=== PATIENT | female | born 1935 | race Caucasian/White ===

== ENCOUNTER 2018-01-06 10:01 | Inpatient (IN) ==
[2018-01-06] MEDS ORDERED: VANCOMYCIN - PHARMACY CONSULT MC ONE (10:11)
[2018-01-06] MEDS ORDERED: ONDANSETRON 4 MG/2 ML INJECTION IVP PRN (10:11)
[2018-01-06] MEDS ORDERED: BISACODYL 10 MG SUPPOSITORY RECTALLY PRN (10:12)
[2018-01-06 10:51] VITALS: BMI 41.1
--- NOTE | 2018-01-06 11:01 | XRay Report ---
Indication: Fever/chills XR chest 1V: Comparison: Single view chest 04/05/2015 Technique: Single portable AP upright chest Findings: Patient demonstrates heart size within the upper range of normal with a permanent pacemaker in position. Central vascularity does not seem congested. Lungs are clear. Patient showed advanced degenerative changes about the left shoulder. Impression: 1. Permanent pacemaker with heart size at the upper range of normal without congestive changes. 2. No acute pulmonary findings. .
--- NOTE | 2018-01-06 11:17 | History & Physical Report ---
History of Present Illness Date: 01/06/18 Chief complaint: Cellulitis HPI: Ora Romeo is an active 82 year old woman who began noticing a subjective fever with chills and a sensation that her eyes were burning on January 03 and . She had a mild headache as well. She had some back pain, and is worried that she might have a kidney infection because she has a history of UTIs. She took some ibuprofen which helped her fever and her back pain. By the , her fever had resolved but later that evening after her dog jumped on her abdomen, she was surprised that she had some abdominal pain. When she looked, it appeared red and more swollen on the left side compared to the right. Otherwise, she's been doing fairly well. She has chronic right arm problems because of a rotator cuff injury. She has chronic urinary urgency. She has chronic leg edema. She sleeps in a recliner every night because she does not want to use CPAP at night for her sleep apnea. She denies any chest pain, palpitations, difficulty breathing, syncope, dizziness or lightheadedness. She denies any cough or congestion, sore throat or dysphagia. She denies any abdominal pain, nausea, vomiting, diarrhea, constipation. She has lost about 80 pounds over the last 7 years, and she is trying to lose about 30 more. She denies any injuries, wounds or rashes. She takes Coumadin for atrial fibrillation. She went to see Dr. Guallpa on 01/06/18, who recommended hospital admission for abdominal wall cellulitis, and she was placed into inpatient status under the hospitalist service. Review of Systems All systems PM: 10-point ROS was reviewed, no additional remarkable complaints except - Psychiatric Psychiatric: Absent: behavioral changes - Hematologic/Lymphatic Hematologic/Lymphatic: Present: easy bleeding, easy bruising Past Medical History Medical History Updates: Atrial fibrillation, anticoagulated on Coumadin. CHF. Hypertension. FABIO, declined CPAP. GERD. Osteoarthritis. Gout. Insomnia. Surgical History: Appendectomy. Bilateral cataracts removed. Colonoscopy in 2009 with multiple polyps tubular adenomatous type and hyperplastic polyps. Cholecystectomy. Ovarian cystectomy followed by hysterectomy. Bilateral knee replacements, left hip replacement. Hemorrhoidectomy. Bilateral carpal tunnel release. Pacemaker placed in 2016. Family History Updates: Father at age 81 of a stroke. Mother at age 83 of congestive heart failure and insulin shock. Sr. of congestive heart failure. A stepskali of old age. Stepbrother of brain cancer. Paternal grandfather at age 90 of a stroke, and paternal grandmother at age 45 of pneumonia. She has 5 sons: One at age 57 of sepsis. He also had diabetes and COPD. Another son has diabetes. Another son is a smoker but is otherwise healthy. One has high blood pressure. The other son does not see a doctor so they don't know his medical problems. Family History: As Above - Social History Smoking status: Never smoker Substance use type: does not use Alcohol intake frequency: does not drink Household members: other () Previous occupational history: Housewife Social history: PCP: Dr. Cabezas Telephone Mechanic: Dr. Barnett Medications Home Medications Medication Instructions Recorded Confirmed Type Ascorbic Acid 500 mg PO DAILY #0 05/05/10 01/06/18 History Calcium Carbonate [Calcium] 1 tab PO DAILY #0 05/05/10 01/06/18 History Garlic [Garlic Oil] 2,000 mg PO DAILY #0 05/05/10 01/06/18 History Multi-Vitamin + Mineral 1 tab PO DAILY #0 05/05/10 01/06/18 History [Therapeutic - M] Omeprazole 40 mg PO DAILY #0 05/05/10 01/06/18 History Zinc Amino Acid Chelate [Zinc] 50 mg PO DAILY #0 05/10/14 01/06/18 History Valsartan [Diovan] 320 tab PO DAILY #0 tab 05/27/14 01/06/18 History Warfarin Sodium 4 mg PO DAILY #0 tab 04/05/15 01/06/18 History Allopurinol [Zyloprim] 150 mg PO DAILY 01/06/18 01/06/18 History Amlodipine Besylate [Norvasc] 2.5 mg PO DAILY 01/06/18 01/06/18 History CloNIDine [Catapres] 1 tab PO BID 01/06/18 01/06/18 History Cranberry Fruit [Cranberry] 500 mg PO DAILY 01/06/18 01/06/18 History [place]-3/Dha/Epa/Fish Oil [Fish Oil 2,000 mg PO DAILY 01/06/18 01/06/18 History 1,000 mg Softgel] Simvastatin 20 mg PO HS 01/06/18 01/06/18 History Sotalol HCl [Betapace] 80 mg PO ACBID 01/06/18 01/06/18 History Allergies Allergy/AdvReac Type Severity Reaction Status Date / Time oxycodone Allergy Severe Unresponsiv Verified 01/06/18 11:19 e sulfamethoxazole Allergy Intermediate Blister Verified 01/06/18 11:19 Penicillins Allergy Mild RASH Verified 05/27/14 09:20 Exam Height/Weight/BMI: Height 1.5 m Weight 92.4 kg Body Mass Index 41.1 - Constitutional Present: no acute distress, well nourished, well developed, obese - Routine HEENT Exam Head: Present: normocephalic Eye: Present: PERRL. Absent: conjunctival icterus, scleral injection ENT: Present: mucous membranes moist, oropharynx clear - Routine Neck Exam Present: supple. Absent: lymphadenopathy - Routine Respiratory Exam Present: CTA bilaterally - Routine Cardiovascular Exam Present: RRR Comments: distant heart tones - Routine Abdominal Exam Present: soft, normoactive bowel sounds, non distended, non tender Comments: mild erythema to lower abdomen into inguinal areas with induration at the dependent portion of her pannus. No palpable abscess. - Routine Extremities Exam Present: edema (1+ BLE), pulses intact, normal capillary refill - Routine Skin Exam Present: intact, dry, warm - Routine Neurological Exam Present: alert, oriented X3, CN II-XII intact, moving all extremities, vision grossly intact, hearing grossly intact, normal speech - Routine Psychiatric Exam Present: normal affect, normal thought process, cooperative Results - Labs CBC & Chem 7: 01/06/18 11:10 01/06/18 11:10 Assessment and Plan (1) Cellulitis Current visit: Yes Status: Acute Assessment and Plan: ASSESSMENT Cellulitis to abdominal wall Atrial fibrillation, anticoagulated on Coumadin. CHF. Hypertension. FABIO, declined CPAP. GERD. Osteoarthritis. Gout. Insomnia. Morbid Obesity with BMI 41.1 PLAN Admit, inpatient status, under the hospitalist service. PCP: Dr. Guallpa. Cellulitis of abdominal wall Sepsis workup Antibiotics: Rocephin (give slowly to monitor for reaction) & Vancomycin Atrial fibrillation, CHF, HTN Once meds are verified, resume diltiazem, losartan, sotalol, valsartan, and Coumadin Consult pharmacy for Coumadin dosing Request last echo report/office note from Dr. Barnett's office Advanced directives DPOA: Son, Neto Living Will: Yes Code status: DNR Prophylaxis Coumadin Omeprazole (History of GERD) DVT Prophylaxis: Coumadin GI Prophylaxis: other (omeprazole) Resuscitation Status: Do Not Resuscitate - Physician Narrative Physician: Jer Armstrong MD Narrative: Date: 01/06/18 Time: 1410 Have independently interview and examined pt. Chart reviewed. Case discussed with Dr Guallpa and my BIRD TRAPPER. Care plan developed with my supervision; agree with above. Not been doing well this week-started having f/c on 01/03. Off and on. Worried was getting UTI and having some Back pain. No nausea or vomiting. No diarrhea. Breathing stable without SOA or cough. Strength up and down-some days able to due her typical activities. Some days, to weak and achy. Having diffuse muscle aches like she has the flu - but know this is not the flu. Ab pannus became more sore and red - noted yesterday evening. Increased in size today. Uncomfortable there to touch. Seen in Dr Linares's office who was concerned about developing MRSA (has had in past). Patti notified and arrangements for admission made. Lungs: decreased, faint crackles. No distress CV: regular AB: soft obese, BS decreased. Skin: erythema of lower ab pannus, area of woody induration distally Plan: Will place patient in inpatient admission for treatment of her Cellulitis - with Obesity and redundancy of skin in area or infection, anticipate will take longer to heal. Anticipated length of stay is thought to be greater than 2 midnights. Ceftriaxone and vancomycin for coverage. Monitor lab. DNR as per her requests. Care to return to Dr Guallpa at time of discharge form [facility]. Hospital Course Summary Disclaimer: The visit summary below is not to be considered part of the above Progress Note. Hospital Course: 01/06/18 Admit, inpatient status, under the hospitalist service. PCP: Dr. Guallpa. Cellulitis of abdominal wall : Sepsis workup. Antibiotics: Rocephin (give slowly to monitor for reaction) & Vancomycin Atrial fibrillation, CHF, HTN : Resume diltiazem, losartan, sotalol, valsartan, and Coumadin. Consult pharmacy for Coumadin dosing. Request last echo report/ office note from Dr. Barnett's office Advanced directives. DPOA: Son, Neto. Living Will: Yes. Code status: DNR Prophylaxis : Coumadin & Omeprazole (History of GERD)
[2018-01-06] MEDS ORDERED: WARFARIN - PHARMACY CONSULT MC ONE (11:34)
[2018-01-06] MEDS: NS FLUSH BAG 500ml IV PRN (12:00)
[2018-01-06] MEDS: CEFTRIAXONE 1 G in NS 100 ML IV SCH (12:15)
--- NOTE | 2018-01-06 12:55 | Pharmacy Consult ---
Pharmacy Consult-Warfarin - Laboratory Information 01/06/18 11:10 INR 1.29 H - Consult Information Diagnosis: atrial fib. Warfarin 4mg dose ordered for today. This appears to be the patient's home dose. Will continue to monitor. Thank you.
[2018-01-06] MEDS: ENOXAPARIN 40 MG/0.4 ML INJECTION SQ SCH (13:18)
--- NOTE | 2018-01-06 13:51 | Pharmacy Consult-Antibiotics ---
Pharmacy Consult-Vancomycin - Laboratory Information WBC 6.8 T/MM3 (4.5-11.0) 01/06/18 11:10 BUN 31.0 MG/DL (7-17) H 01/06/18 11:10 Creatinine 1.0 mg/dL (0.7-1.2) 01/06/18 11:10 Procalcitonin < 0.05 NG/ML 01/06/18 11:10 - Consult Information 82 y.o Female started on Vancomycin protocol for Abdominal wall cellulitis. Ceftriaxone and Vancomycin ordered empirically. Goal Vancomycin trough range of 15 to 20 mcg/ml. Vancomycin 1,500 mg iv x 1 dose then Vancomycin 1,250 mg IV Q24H. Pharmacy will monitor and adjust as needed. Thank you, Kenia Jorge [facility]
[2018-01-06] MEDS ORDERED: WARFARIN 4 MG TABLET PO ONE (14:00)
[2018-01-07] MEDS: SOTALOL 80 MG TABLET PO SCH ×2 (06:41→17:16)
[2018-01-07] MEDS: OMEPRAZOLE 20 MG CAPSULE PO SCH (06:41)
--- NOTE | 2018-01-07 07:45 | Pharmacy Consult ---
Pharmacy Consult-Warfarin - Laboratory Information 01/06/18 01/07/18 11:10 04:12 INR 1.29 H 1.43 H - Consult Information We will order another dose of 4mg warfarin po today at noon. INR increasing nicely. Thanks
[2018-01-07] MEDS ORDERED: WARFARIN 4 MG TABLET PO SCH ×2 (09:00→12:00)
[2018-01-07] MEDS: ENOXAPARIN 40 MG/0.4 ML INJECTION SQ SCH (09:05)
--- NOTE | 2018-01-07 11:50 | Progress Note ---
- Date 01/07/18 Subjective: F/U: Cellulitis of abdominal pannus Improving slowly. Notes area of redness to ab wall not as tender/painful to touch. Redness with slight decrease. No f/c. Not having mouth pain. Bowels stable. Appetite stable. Breathing well. Objective Vital signs: Temperature 97.4 F 01/07/18 08:00 Pulse Rate 65 01/07/18 08:00 Respiratory Rate 16 01/07/18 08:00 Blood Pressure 152/69 H 01/07/18 08:00 Pulse Oximetry 97 01/07/18 08:00 Height/Weight/BMI: Height 1.5 m Weight 92.4 kg Body Mass Index 41.1 - Constitutional Present: well nourished, well developed, morbidly obese, cooperative - Routine HEENT Exam Head: Present: normocephalic, atraumatic Eye: Present: EOMI, PERRL ENT: Present: mucous membranes moist - Routine Respiratory Exam Present: decreased breath sounds. Absent: rales, respiratory distress, rhonchi , wheezes, crackles - Routine Cardiovascular Exam Present: RRR, no murmur - Routine Abdominal Exam Present: soft, normoactive bowel sounds, non distended, non tender - Routine Extremities Exam Present: edema (+1 BLE), pulses intact. Absent: cyanosis, clubbing - Routine Skin Exam Present: erythema (Decreasing), warm, normal turgor - Routine Neurological Exam Present: alert, oriented X3, CN II-XII intact, moving all extremities, vision grossly intact, hearing grossly intact, normal speech. Absent: motor deficit, altered mental status - Routine Psychiatric Exam Present: normal affect, normal thought process, cooperative Results - Labs CBC & Chem 7: 01/07/18 04:12 01/07/18 04:12 Microbiology Results: Microbiology 01/06/18 11:10 Peripheral/Iv Start Blood Culture - Preliminary No Growth After 1 Day 01/06/18 12:02 Peripheral/Iv Start Blood Culture - Preliminary Culture Initiated - Results Pending Assessment and Plan (1) Cellulitis Current visit: Yes Status: Acute Assessment and Plan: ASSESSMENT Cellulitis to abdominal wall Atrial fibrillation, anticoagulated on Coumadin CHF Hypertension FABIO, declined CPAP GERD Osteoarthritis Gout Insomnia Morbid Obesity with BMI 41.1 PLAN Continue with ceftriaxone and vancomycin for antimicrobial coverage to cellulitis. Redness and pain improving. BP stable - can restart home antihypertensives. INR subtherapeutic at admission - Pharm protocol started. Monitor INR. Recheck CBC in am due to cellulitis. Repeat BMP in am due to medication use. Case discussed with CM. Time spent with patient care 25 minutes. DVT Prophylaxis: Coumadin Resuscitation Status: Do Not Resuscitate - Time spent with patient Time with patient PN: 25 minutes - Physician Narrative Physician: Jer Armstrong MD Narrative: Date: 01/07/18 Time: 1147 Hospital Course Summary Disclaimer: The visit summary below is not to be considered part of the above Progress Note. Hospital Course: 01/06/18 Admit, inpatient status, under the hospitalist service. PCP: Dr. Guallpa. Cellulitis of abdominal wall : Sepsis workup. Antibiotics: Rocephin (give slowly to monitor for reaction) & Vancomycin Atrial fibrillation, CHF, HTN : Resume diltiazem, losartan, sotalol, valsartan, and Coumadin. Consult pharmacy for Coumadin dosing. Request last echo report/ office note from Dr. Barnett's office Advanced directives. DPOA: SonNeto. Living Will: Yes. Code status: DNR Prophylaxis : Coumadin & Omeprazole (History of GERD) 01/07/18 Continue with ceftriaxone and vancomycin for antimicrobial coverage to cellulitis. Redness and pain improving. BP stable - can restart home antihypertensives. INR subtherapeutic at admission - Pharm protocol started. Monitor INR.
[2018-01-07] MEDS: CEFTRIAXONE 1 G in NS 100 ML IV SCH (12:15)
[2018-01-07] MEDS: AMLODIPINE 2.5 MG TABLET PO SCH (12:33)
[2018-01-07] MEDS: Valsartan 160 MG TABLET PO SCH (12:33)
[2018-01-07] MEDS: SIMVASTATIN 20 MG TABLET PO SCH (21:01)
[2018-01-08] MEDS: OMEPRAZOLE 20 MG CAPSULE PO SCH (06:07)
[2018-01-08] MEDS: SOTALOL 80 MG TABLET PO SCH ×2 (06:09→17:05)
--- NOTE | 2018-01-08 07:07 | Pharmacy Consult ---
Pharmacy Consult-Warfarin - Laboratory Information 01/06/18 01/07/18 01/08/18 11:10 04:12 04:31 INR 1.29 H 1.43 H 1.52 H - Consult Information INR increased modestly so we will increase warfarin dose today to 6mg. Goal INR 2 - 3. Thanks
[2018-01-08] MEDS: AMLODIPINE 2.5 MG TABLET PO SCH (08:17)
[2018-01-08] MEDS: ALLOPURINOL 300 MG TABLET PO SCH (08:18)
[2018-01-08] MEDS: ZINC GLUCONATE 50 MG TABLET PO SCH (08:18)
[2018-01-08] MEDS: OMEGA-3 ACID ESTERS 1 GM CAPSULE PO SCH (08:18)
[2018-01-08] MEDS: Valsartan 160 MG TABLET PO SCH (08:18)
[2018-01-08] MEDS: MULTI-VITAMIN + MINERAL TABLET PO SCH (08:18)
[2018-01-08] MEDS: CALCIUM CARBONATE 500 MG TABLET PO SCH (08:18)
[2018-01-08] MEDS: ASCORBIC ACID 500 MG TABLET PO SCH (08:21)
[2018-01-08] MEDS: ENOXAPARIN 40 MG/0.4 ML INJECTION SQ SCH (08:21)
[2018-01-08] MEDS: DiphenhydrAMINE 50 MG/ML INJECTION IVP SCH (09:54)
--- NOTE | 2018-01-08 11:56 | Progress Note ---
- Date 01/08/18 Subjective: Ora is seen today in follow up. She is feeling better. Pannus infection is improving, she reports pain is better. No fever. No constipation or N/V. Objective Vital signs: Temperature 95.8 F L 01/08/18 07:22 Pulse Rate 62 01/08/18 07:22 Respiratory Rate 16 01/08/18 07:22 Blood Pressure 148/71 H 01/08/18 07:22 Pulse Oximetry 97 01/08/18 07:22 Height/Weight/BMI: Height 1.5 m Weight 93.3 kg Body Mass Index 41.1 - Constitutional Present: no acute distress, well nourished, well developed, average body habitus - Routine HEENT Exam Head: Present: normocephalic, atraumatic Eye: Present: EOMI, PERRL ENT: Present: mucous membranes moist - Routine Respiratory Exam Present: CTA bilaterally. Absent: dyspnea, rhonchi, crackles - Routine Cardiovascular Exam Present: RRR, S1, S2 - Routine Abdominal Exam Present: soft, normoactive bowel sounds, non distended, wound (Mild redness under pannus- light pink now. Smells of jason infection) - Routine Extremities Exam Present: no edema, non tender - Routine Musculoskeletal Exam Musculoskeletal: Present: moving extremities well - Routine Skin Exam Present: intact, dry, warm - Routine Neurological Exam Present: alert, moving all extremities - Routine Psychiatric Exam Present: normal affect, cooperative Results - Labs CBC & Chem 7: 01/08/18 04:31 01/08/18 04:31 Microbiology Results: Microbiology 01/06/18 11:10 Peripheral/Iv Start Blood Culture - Preliminary No Growth After 2 Days 01/06/18 12:02 Peripheral/Iv Start Blood Culture - Preliminary No Growth After 1 Day Assessment and Plan (1) Cellulitis Current visit: Yes Status: Acute Assessment and Plan: ASSESSMENT Cellulitis to abdominal wall Atrial fibrillation, anticoagulated on Coumadin CHF Hypertension FABIO, declined CPAP GERD Osteoarthritis Gout Insomnia Morbid Obesity with BMI 41.1 PLAN Continue with ceftriaxone and vancomycin for antimicrobial coverage to cellulitis. Continues to improve. Add Nystatin powder to help with any fungal infection. BP a bit elevated- monitor on home therapy. VSS, HR controlled. INR subtherapeutic at admission - Pharm protocol stared. INR trending up. repeat labs in am to monitor abnormals. Improving overall- possible dismissal on oral antibiotics in next 1-2 days. DVT Prophylaxis: Lovenox, Coumadin GI Prophylaxis: other (PPI) Resuscitation Status: Do Not Resuscitate - Time spent with patient Time with patient PN: 25 minutes - Physician Narrative Physician: Jer Armstrong MD Narrative: Date: 01/08/18 Time: 1300 Have independently interviewed and examined pt. Chart reviewed. Case discussed with my NEWS COPY EDITOR. Care plan developed with my supervision; agree with above. Doing well. Still feels discomfort and warmth to area of cellulitis, but gradually decreasing. No f/c. Eating well. Bowels stable. Breathing well. Strength stable-ambulating in room without difficulty but not been out of room. Lungs: decreased breath sounds, no distress CV: regular AB: soft nt/nd +BS EXT : no edema SKIN: erythema decreasing, less woody induration Plan: Continue with antibiotics. Encourage ambulation. Continue with Lovenox as INR still subtherapeutic. Clinically improving. Hospital Course Summary Disclaimer: The visit summary below is not to be considered part of the above Progress Note. Hospital Course: 01/06/18 Admit, inpatient status, under the hospitalist service. PCP: Dr. Guallpa. Cellulitis of abdominal wall : Sepsis workup. Antibiotics: Rocephin (give slowly to monitor for reaction) & Vancomycin Atrial fibrillation, CHF, HTN : Resume diltiazem, losartan, sotalol, valsartan, and Coumadin. Consult pharmacy for Coumadin dosing. Request last echo report/ office note from Dr. Barnett's office Advanced directives. DPOA: SonNeto. Living Will: Yes. Code status: DNR Prophylaxis : Coumadin & Omeprazole (History of GERD) 01/07/18 Continue with ceftriaxone and vancomycin for antimicrobial coverage to cellulitis. Redness and pain improving. BP stable - can restart home antihypertensives. INR subtherapeutic at admission - Pharm protocol started. Monitor INR. 01/08/18 Continue with ceftriaxone and vancomycin for antimicrobial coverage to cellulitis. Continues to improve. Add Nystatin powder to help with any fungal infection. BP a bit elevated- monitor on home therapy. VSS, HR controlled. INR subtherapeutic at admission - Pharm protocol stared. INR trending up. repeat labs in am to monitor abnormals. Improving overall- possible dismissal on oral antibiotics in next 1-2 days.
[2018-01-08] MEDS ORDERED: WARFARIN 4 MG TABLET PO SCH (12:00)
[2018-01-08] MEDS: CEFTRIAXONE 1 G in NS 100 ML IV SCH (13:06)
[2018-01-08] MEDS: SIMVASTATIN 20 MG TABLET PO SCH (20:04)
[2018-01-09] MEDS: SOTALOL 80 MG TABLET PO SCH ×2 (05:47→17:59)
[2018-01-09] MEDS: OMEPRAZOLE 20 MG CAPSULE PO SCH (05:48)
[2018-01-09] MEDS: ZINC GLUCONATE 50 MG TABLET PO SCH (08:40)
[2018-01-09] MEDS: OMEGA-3 ACID ESTERS 1 GM CAPSULE PO SCH (08:40)
[2018-01-09] MEDS: Valsartan 160 MG TABLET PO SCH (08:40)
[2018-01-09] MEDS: MULTI-VITAMIN + MINERAL TABLET PO SCH (08:40)
[2018-01-09] MEDS: ENOXAPARIN 40 MG/0.4 ML INJECTION SQ SCH (08:40)
[2018-01-09] MEDS: ASCORBIC ACID 500 MG TABLET PO SCH (08:40)
[2018-01-09] MEDS: AMLODIPINE 2.5 MG TABLET PO SCH (08:41)
[2018-01-09] MEDS: ALLOPURINOL 300 MG TABLET PO SCH (08:41)
[2018-01-09] MEDS: CALCIUM CARBONATE 500 MG TABLET PO SCH (08:41)
--- NOTE | 2018-01-09 09:33 | Pharmacy Consult ---
Pharmacy Consult-Warfarin - Laboratory Information 01/06/18 01/07/18 01/08/18 11:10 04:12 04:31 INR 1.29 H 1.43 H 1.52 H 01/09/18 04:19 INR 1.57 H - Consult Information COUMADIN CONSULT (Recurring): 82 yr old female patient who is on warfarin at home for A Fib. INR not therapeutic at admit. Therapeutic Range is between 2-3. Pt is 4'11" and 92.2 kg. Patient is also currently on Enoxaparin 40 mg sq daily until her INR is therapeutic. Patient is also on Ceftriaxone and Vancomycin IV for cellulitis. Date INR Dose 01/06 1.29 4 mg 01/07 1.43 4 mg 01/08 1.52 6 mg 01/09 1.57 Will give 7.5 mg today Thank you. Danae Macias, PharmD
[2018-01-09] MEDS ORDERED: VANCOMYCIN 1,500 MG in NS 500 ML IV SCH (10:00)
[2018-01-09] MEDS: DiphenhydrAMINE 50 MG/ML INJECTION IVP SCH (10:05)
[2018-01-09] MEDS: NS FLUSH BAG 500ml IV PRN (10:05)
--- NOTE | 2018-01-09 10:26 | Pharmacy Consult-Antibiotics ---
Pharmacy Consult-Vancomycin - Laboratory Information WBC 4.7 T/MM3 (4.5-11.0) 01/09/18 04:19 BUN 31.0 MG/DL (7-17) H 01/09/18 04:19 Creatinine 1.0 mg/dL (0.7-1.2) 01/09/18 04:19 Procalcitonin < 0.05 NG/ML 01/06/18 11:10 Vancomycin Trough 14.05 ug/mL (15-20) L 01/09/18 08:38 - Consult Information VANCOMYCIN CONSULT: DAY 4 Patient has Cellulitis of the abdominal wall. Vancomycin Trough = 14.05 mcg/ml. Today's SCr = 1.0 mg/dl. Patient had been receiving Vancomycin 1250 mg IV q24hrs. Goal is trough between 15-20 Will increase Vancomycin to 1500 mg IV q24hrs. Will continue to monitor and make adjustments accordingly. Thank you. Danae Macias, PharmD
[2018-01-09] MEDS ORDERED: WARFARIN 7.5 MG TABLET PO SCH (12:00)
[2018-01-09] MEDS: CEFTRIAXONE 1 G in NS 100 ML IV SCH (13:03)
--- NOTE | 2018-01-09 13:31 | Progress Note ---
- Date 01/09/18 Subjective: Patient is seen before lunch sitting in her chair. Her IV has just infiltrated with her most recent dose of vancomycin. She reports she is feeling better. She thinks the redness, swelling and pain in her abdomen have lessened. She's had no chest pain or shortness of breath. Her appetite is good. She's had no urinary symptoms and reports her bowels are regular. Objective Vital signs: Temperature 95.5 F L 01/09/18 07:00 Pulse Rate 66 01/09/18 08:00 Respiratory Rate 01/09/18 07:00 Blood Pressure 178/82 H 01/09/18 07:00 Pulse Oximetry 94 01/09/18 07:00 Height/Weight/BMI: Height 1.5 m Weight 92.2 kg Body Mass Index 41.1 - Constitutional Present: no acute distress, well nourished, well developed - Routine HEENT Exam Head: Present: normocephalic, atraumatic - Routine Respiratory Exam Present: CTA bilaterally. Absent: wheezes - Routine Cardiovascular Exam Present: RRR, no murmur - Routine Abdominal Exam Present: soft, non distended Comments: She has minimal erythema under her pannus. Based on the markings which are still visible, erythema has receded. She continues to have some edema but this has improved. Patient has mild tenderness with palpation of the area. There is no warmth. - Routine Extremities Exam Present: edema (trace left lower extremity, none to the right. Patient reports the left leg is always slightly larger than the right. She also has some bruising and tenderness to the lateral left calf.), normal capillary refill - Routine Skin Exam Present: dry, warm - Routine Neurological Exam Present: alert, oriented X3 - Routine Lymphatic Exam Lymphatic: Absent: adenopathy - Routine Psychiatric Exam Present: normal affect, cooperative Results - Labs CBC & Chem 7: 01/09/18 04:19 01/09/18 04:19 Microbiology Results: Microbiology 01/06/18 12:02 Peripheral/Iv Start Blood Culture - Preliminary No Growth After 3 Days 01/06/18 11:10 Peripheral/Iv Start Blood Culture - Preliminary No Growth After 3 Days Assessment and Plan (1) Cellulitis Current visit: Yes Status: Acute Assessment and Plan: ASSESSMENT Cellulitis to abdominal wall Atrial fibrillation, anticoagulated on Coumadin CHF Hypertension FABIO, declined CPAP GERD Osteoarthritis Gout Insomnia Morbid Obesity with BMI 41.1 PLAN Convert from vancomycin and ceftriaxone to clindamycin 300mg 4 times a day orally. Continue nystatin for candidal infection. Assuming she tolerates clindamycin and symptoms continue to improve, plan on DC tomorrow. Labs and vital signs are stable. Overall improving. - Physician Narrative Physician: Sobia Ivan MD Narrative: Date: 01/09/18 Time: 7:20 PM-I reviewed this chart, the patient history, and the ANTISQUEAK WORKER's/PA's documented findings as above. We discussed and formulated the assessment and plan as above with the additions below.-Moncho Patient was seen this evening in her room. She states overall she is feeling much better. The erythema and induration in her pannus is markedly improved. Appetite is normal. She is not having any fevers or chills. She is urinating without difficulty. IV infiltrated in her right arm today and was initially painful. She states there is no pain, swelling or redness now. She states her strength is normal and she is getting up and around the room without difficulties. On exam she is alert and in no acute distress. Chest is clear to auscultation. Cardiovascular reveals a regular rate and rhythm. Abdomen is soft and nontender. Bowel sounds are normal. She does have some mild induration at the very lowest dependent portion of her pannus with some very minimal erythema. She states it is much better than it was on admission. Extremities are free of edema. Impression and plan Cellulitis of the lower pannus. Markedly improved. DC Rocephin and vancomycin. Start oral clindamycin. Probable discharge tomorrow. Hospital Course Summary Disclaimer: The visit summary below is not to be considered part of the above Progress Note. Hospital Course: 01/06/18 Admit, inpatient status, under the hospitalist service. PCP: Dr. Guallpa. Cellulitis of abdominal wall : Sepsis workup. Antibiotics: Rocephin (give slowly to monitor for reaction) & Vancomycin Atrial fibrillation, CHF, HTN : Resume diltiazem, losartan, sotalol, valsartan, and Coumadin. Consult pharmacy for Coumadin dosing. Request last echo report/ office note from Dr. Barnett's office Advanced directives. DPOA: SonNeto. Living Will: Yes. Code status: DNR Prophylaxis : Coumadin & Omeprazole (History of GERD) 01/07/18 Continue with ceftriaxone and vancomycin for antimicrobial coverage to cellulitis. Redness and pain improving. BP stable - can restart home antihypertensives. INR subtherapeutic at admission - Pharm protocol started. Monitor INR. 01/08/18 Continue with ceftriaxone and vancomycin for antimicrobial coverage to cellulitis. Continues to improve. Add Nystatin powder to help with any fungal infection. BP a bit elevated- monitor on home therapy. VSS, HR controlled. INR subtherapeutic at admission - Pharm protocol stared. INR trending up. repeat labs in am to monitor abnormals. Improving overall- possible dismissal on oral antibiotics in next 1-2 days. 01/09/18 Convert from vancomycin and ceftriaxone to clindamycin 300mg 4 times a day orally. Continue nystatin for candidal infection. Assuming she tolerates clindamycin and symptoms continue to improve, plan on DC tomorrow. Labs and vital signs are stable. Overall improving.
[2018-01-09] MEDS: CLINDAMYCIN 300 MG CAPSULE PO SCH ×2 (17:59→21:21)
[2018-01-09] MEDS: SIMVASTATIN 20 MG TABLET PO SCH (21:21)
[2018-01-10 00:16] VITALS: RESP 18
[2018-01-10] MEDS: SOTALOL 80 MG TABLET PO SCH (06:08)
[2018-01-10] MEDS: OMEPRAZOLE 20 MG CAPSULE PO SCH (06:10)
[2018-01-10 08:12] VITALS: BP 151/78; PULSE 65; TEMP 96.3; O2SAT 95
[2018-01-10] MEDS: DiphenhydrAMINE 50 MG/ML INJECTION IVP SCH (08:51)
[2018-01-10] MEDS: CLINDAMYCIN 300 MG CAPSULE PO SCH ×2 (09:18→14:32)
[2018-01-10] MEDS: AMLODIPINE 2.5 MG TABLET PO SCH (09:18)
[2018-01-10] MEDS: Valsartan 160 MG TABLET PO SCH (09:18)
[2018-01-10] MEDS: CALCIUM CARBONATE 500 MG TABLET PO SCH (09:18)
[2018-01-10] MEDS: MULTI-VITAMIN + MINERAL TABLET PO SCH (09:18)
[2018-01-10] MEDS: ASCORBIC ACID 500 MG TABLET PO SCH (09:19)
[2018-01-10] MEDS: ENOXAPARIN 40 MG/0.4 ML INJECTION SQ SCH (09:19)
[2018-01-10] MEDS: OMEGA-3 ACID ESTERS 1 GM CAPSULE PO SCH (09:19)
[2018-01-10] MEDS: ALLOPURINOL 300 MG TABLET PO SCH (09:19)
[2018-01-10] MEDS: ZINC GLUCONATE 50 MG TABLET PO SCH (09:20)
[2018-01-10] MEDS ORDERED: WARFARIN 7.5 MG TABLET PO SCH (12:00)
--- NOTE | 2018-01-10 12:32 | Discharge Summary ---
Discharge Information Date of admission: 01/06/18 10:01 Anticipated date of discharge: 01/10/18 Attending Physician: Sobia Ivan MD Primary care physician: Mateus Guallpa MD - Discharge Diagnosis (1) Cellulitis Status: Acute Cellulitis to abdominal wall Atrial fibrillation, anticoagulated on Coumadin CHF Hypertension FABIO, declined CPAP GERD Osteoarthritis Gout Insomnia Morbid Obesity with BMI 41.1 - Laboratory Labs: 01/09/18 04:19 01/09/18 04:19 Laboratory Tests 01/08/18 01/09/18 01/10/18 04:31 04:19 04:23 INR 1.52 H 1.57 H 1.68 H - Microbiology Microbiology 01/06/18 12:02 Peripheral/Iv Start Blood Culture - Preliminary No Growth After 4 Days 01/06/18 11:10 Peripheral/Iv Start Blood Culture - Preliminary No Growth After 4 Days - Radiology Radiology: Date of Exam: 01/06/18 Indication: Fever/chills XR chest 1V: Findings: Patient demonstrates heart size within the upper range of normal with a permanent pacemaker in position. Central vascularity does not seem congested. Lungs are clear. Patient showed advanced degenerative changes about the left shoulder. Impression: 1. Permanent pacemaker with heart size at the upper range of normal without congestive changes. 2. No acute pulmonary findings. History of Present Illness HPI: Ora Romeo is an active 82 year old woman who began noticing a subjective fever with chills and a sensation that her eyes were burning on January 03 and . She had a mild headache as well. She had some back pain, and is worried that she might have a kidney infection because she has a history of UTIs. She took some ibuprofen which helped her fever and her back pain. By the , her fever had resolved but later that evening after her dog jumped on her abdomen, she was surprised that she had some abdominal pain. When she looked, it appeared red and more swollen on the left side compared to the right. Otherwise, she's been doing fairly well. She has chronic right arm problems because of a rotator cuff injury. She has chronic urinary urgency. She has chronic leg edema. She sleeps in a recliner every night because she does not want to use CPAP at night for her sleep apnea. She denies any chest pain, palpitations, difficulty breathing, syncope, dizziness or lightheadedness. She denies any cough or congestion, sore throat or dysphagia. She denies any abdominal pain, nausea, vomiting, diarrhea, constipation. She has lost about 80 pounds over the last 7 years, and she is trying to lose about 30 more. She denies any injuries, wounds or rashes. She takes Coumadin for atrial fibrillation. She went to see Dr. Guallpa on 01/06/18, who recommended hospital admission for abdominal wall cellulitis, and she was placed into inpatient status under the hospitalist service. Objective Vital signs: Temperature 96.3 F L 01/10/18 08:04 Pulse Rate 65 01/10/18 08:04 Respiratory Rate 18 01/10/18 08:04 Blood Pressure 151/78 H 01/10/18 08:04 Pulse Oximetry 95 01/10/18 08:04 Height/Weight/BMI: Height 1.5 m Weight 92 kg Body Mass Index 41.1 - Constitutional Present: no acute distress, well nourished, well developed - Routine HEENT Exam Head: Present: normocephalic, atraumatic - Routine Respiratory Exam Present: CTA bilaterally. Absent: wheezes - Routine Cardiovascular Exam Present: RRR - Routine Abdominal Exam Present: soft, non distended, non tender Comments: minimal erythema to pannus -continues to improve. Minimal tenderness, no warmth , chronic induration. - Routine Extremities Exam Present: edema (trace), normal capillary refill - Routine Skin Exam Present: dry, warm - Routine Neurological Exam Present: alert, oriented X3 - Routine Lymphatic Exam Lymphatic: Absent: adenopathy - Routine Psychiatric Exam Present: normal affect, cooperative Hospital Course This is a general summary of the patient's hospital course. For more details refer to the complete medical record. Hospital course: 01/06/18 Admit, inpatient status, under the hospitalist service. PCP: Dr. Guallpa. Cellulitis of abdominal wall : Sepsis workup. Antibiotics: Rocephin (give slowly to monitor for reaction) & Vancomycin Atrial fibrillation, CHF, HTN : Resume diltiazem, losartan, sotalol, valsartan, and Coumadin. Consult pharmacy for Coumadin dosing. Request last echo report/ office note from Dr. Barnett's office Advanced directives. DPOA: SonNeto. Living Will: Yes. Code status: DNR Prophylaxis : Coumadin & Omeprazole (History of GERD) 01/07/18 Continue with ceftriaxone and vancomycin for antimicrobial coverage to cellulitis. Redness and pain improving. BP stable - can restart home antihypertensives. INR subtherapeutic at admission - Pharm protocol started. Monitor INR. 01/08/18 Continue with ceftriaxone and vancomycin for antimicrobial coverage to cellulitis. Continues to improve. Add Nystatin powder to help with any fungal infection. BP a bit elevated- monitor on home therapy. VSS, HR controlled. INR subtherapeutic at admission - Pharm protocol stared. INR trending up. repeat labs in am to monitor abnormals. Improving overall- possible dismissal on oral antibiotics in next 1-2 days. 01/09/18 Convert from vancomycin and ceftriaxone to clindamycin 300mg 4 times a day orally. Continue nystatin for candidal infection. Assuming she tolerates clindamycin and symptoms continue to improve, plan on DC tomorrow. Labs and vital signs are stable. Overall improving. 01/10/18 DC home today on oral clinda 300mg QID to complete a total of 14 days of atbx from initiation of parenteral atbx in hospital. F-u with PCP next week. Time spent with patient: discharge greater than 30 minutes Resuscitation Status: Do Not Resuscitate Discharge Plan - Discharge Disposition Discharge Date: 01/10/18 Disposition: 01 Discharged Home, Self-Care *Condition: Stable Reason For Visit (Visit label in EMR): Cellulitis of ABD wall - Discharge Medications *Discharge Medications: New Clindamycin [Cleocin] 300 mg PO QID #38 cap Nystatin Powder [Mycostatin] 1 applicatio TP BID #1 bottle Continue Garlic [Garlic Oil] 2,000 mg PO DAILY #0 Calcium Carbonate [Calcium] 1 tab PO DAILY #0 Ascorbic Acid 500 mg PO DAILY #0 Valsartan [Diovan] 320 tab PO DAILY #0 tab Simvastatin 20 mg PO HS CloNIDine [Catapres] 1 tab PO BID Amlodipine Besylate [Norvasc] 2.5 mg PO DAILY Cranberry Fruit [Cranberry] 500 mg PO DAILY Multi-Vitamin + Mineral [Therapeutic - M] 1 tab PO DAILY #0 Omeprazole 40 mg PO DAILY #0 Zinc Amino Acid Chelate [Zinc] 50 mg PO DAILY #0 Allopurinol [Zyloprim] 150 mg PO DAILY [place]-3/Dha/Epa/Fish Oil [Fish Oil 1,000 mg Softgel] 2,000 mg PO DAILY Sotalol HCl [Betapace] 80 mg PO ACBID Changed Warfarin Sodium 5 mg PO DAILY #0 tab - Discharge Packet/Instructions *Diet: low fat, low sodium diet *Activity: as tolerated *Pain Management/Treatment: n/a *Wound Care: n/a Additional Instructions: Take antibiotics until gone. Take 5 mg coumadin daily and recheck INR/Protime on Tuesday. *Expected Signs/Symptoms: continued improvement *Notify Physician if: you develop fever or recurrence of redness, warmth, pain in site of infection *During Business Hours Contact: Dr Guallpa' office *After Business Hours Contact: [facility] at [phone] or report to ER *Pending Lab/Results: No Pending Lab - Referrals/Follow Up *Referrals/Follow Up: Mateus Guallpa MD [Primary Care Provider] - 1 Week (Needs protime/INR DOCTORS OFFICE WILL CALL YOU.) - Patient Handouts - Dismissal Complete Discharge Instructions are:: Complete Physician Narrative - Narrative Physician: Sobia Ivan MD Attestation Narrative: Date: 01/10/18 Time: 3:50 PM-I reviewed this chart, the patient history, and the ELECTRONICS TECHNICIAN's/PA's documented findings as above. We discussed and formulated the assessment and plan as above with the additions below.-Dr. Ivan Patient was seen this afternoon in her room. She states she's feeling great. She is getting up and around without difficulty. She is not having any pain in her lower abdomen. She is eating and drinking well. On exam she is alert and oriented and in no acute distress. Chest is clear to auscultation. Cardiovascular reveals a regular rate and rhythm. Abdomen is soft and nontender. She has minimal erythema and edema in her lower pannus and superior pubis area. The area is nontender. Impression and plan Cellulitis of the lower pannus-marked improvement. We'll dismiss on clindamycin. 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 Follow-up next week with Dr. Guallpa. She will be discharged on warfarin 5 mg daily instead of her usual home dose of 4 mg daily. She did have a subtherapeutic INR on admission. Repeat INR is planned for this Tuesday. Addendum entered and electronically signed by RADHA Sam 01/10/18 12:58 : Notified Dr. Guallpa of pt's DC.
== END 2018-01-10 16:50 | disposition home or self-care (01) | DRG 603 ==
LOC: MED 10:01 → SUATTDRO 10:01
PROVIDERS: ADMIT Hospitalist; ATTEND Internal Medicine

== ENCOUNTER 2018-02-16 14:25 | Inpatient (IN) ==
[2018-02-13 14:51] VITALS: BMI 41.8
--- NOTE | 2018-02-13 15:18 | History & Physical Report ---
History of Present Illness Date: 02/13/18 HPI: Ora is a 82 yr old female who is known to the hospitalist services from previous admissions. She was recently admitted last month to the hospitalist service with abdominal cellulitis. She was discharge home and has done good since that time. She has been active and is going to [employer] daily for walking and water aerobics. She noticed this past that she had vaginal itching. She began to use topical cream and Vaseline however symptoms worsened. On Sunday 02/11 the itching worsened and spread to entire vulvar area radiating back to rectum and onto lower perineurium. Today she went to see her PCP Dr Shun Bauer for evaluation. He was concerned about the extent of the erythema and irritation that he contacted the hospitalist for outpatient admission. She reports fever of 101 while at the clinic today. Review of Systems All systems PM: 10-point ROS was reviewed, no additional remarkable complaints except - Genitourinary Genitourinary: Present: as per HPI Genitourinary Comments: vulvar erythema and drainage Past Medical History Medical History Updates: Atrial fibrillation, anticoagulated on Coumadin. Diet controlled DM. CHF. Hypertension. FABIO, declined CPAP. GERD. Osteoarthritis. Gout. Insomnia Surgical History: Appendectomy. Bilateral cataracts removed. Colonoscopy in 2009 with multiple polyps tubular adenomatous type and hyperplastic polyps. Cholecystectomy. Ovarian cystectomy followed by hysterectomy. Bilateral knee replacements, left hip replacement. Hemorrhoidectomy. Bilateral carpal tunnel release. Pacemaker placed in 2016. Family History: Father at age 81 of a stroke. Mother at age 83 of congestive heart failure and insulin shock. Sr. of congestive heart failure. A stepsister of old age. Stepbrother of brain cancer. Paternal grandfather at age 90 of a stroke, and paternal grandmother at age 45 of pneumonia. She has 5 sons: One at age 57 of sepsis. He also had diabetes and COPD. Another son has diabetes. Another son is a smoker but is otherwise healthy. One has high blood pressure. The other son does not see a doctor so they don't know his medical problems. Family History: As Above - Social History Smoking status: Never smoker Alcohol intake frequency: does not drink Housing: house Current occupational status: retired Current residence: Apartment/Private Home Social history: PCP Dr Guallpa System Safety Engineer- Dr Barnett Medications Home Medications Medication Instructions Recorded Confirmed Type Calcium Carbonate 1 tab PO DAILY #0 05/05/10 02/13/18 History Garlic [Garlic Oil] 2,000 mg PO DAILY #0 05/05/10 02/13/18 History Multi-Vitamin + Mineral 1 tab PO DAILY #0 05/05/10 02/13/18 History [Therapeutic - M] Omeprazole 40 mg PO DAILY #0 05/05/10 02/13/18 History Zinc Amino Acid Chelate [Zinc] 50 mg PO DAILY #0 05/10/14 02/13/18 History Valsartan [Diovan] 320 tab PO DAILY #0 tab 05/27/14 02/13/18 History Allopurinol [Zyloprim] 150 mg PO DAILY 01/06/18 02/13/18 History Amlodipine Besylate [Norvasc] 2.5 mg PO DAILY 01/06/18 02/13/18 History CloNIDine [Catapres] 1 tab PO BID 01/06/18 02/13/18 History Cranberry Fruit [Cranberry] 500 mg PO DAILY 01/06/18 02/13/18 History [place]-3/Dha/Epa/Fish Oil [Fish Oil 2,000 mg PO DAILY 01/06/18 02/13/18 History 1,000 mg Softgel] Simvastatin 20 mg PO HS 01/06/18 02/13/18 History Sotalol HCl [Betapace] 80 mg PO ACBID 01/06/18 02/13/18 History Nystatin Powder [Mycostatin] 1 applicatio TP BID #1 bottle 01/10/18 02/13/18 Rx Apixaban [Eliquis] 5 mg PO BID 02/13/18 02/13/18 History Allergies Allergy/AdvReac Type Severity Reaction Status Date / Time oxycodone Allergy Severe Unresponsiv Verified 01/06/18 11:19 e sulfamethoxazole Allergy Intermediate Blister Verified 01/06/18 11:19 Penicillins Allergy Mild RASH Verified 05/27/14 09:20 Exam Height/Weight/BMI: Height 1.5 m Weight 93.9 kg Body Mass Index 41.8 - Constitutional Present: no acute distress, well nourished, well developed - Routine HEENT Exam Eye: Present: EOMI ENT: Present: mucous membranes moist, dentition normal - Routine Respiratory Exam Present: CTA bilaterally. Absent: wheezes - Routine Cardiovascular Exam Present: RRR, S1, S2. Absent: murmur - Routine Abdominal Exam Present: soft, normoactive bowel sounds, non distended. Absent: tenderness - Routine Exam Patient deferred: external exam External: Present: erythema, tenderness, vulvar erythema, vulvar tenderness, discharge (white) - Routine Extremities Exam Present: edema (trace BLE), full ROM - Routine Back/Spine/Pelvis Exam Back/Spine: Present: full ROM - Routine Skin Exam Present: intact, dry, warm - Routine Neurological Exam Present: alert, oriented X3, CN II-XII intact - Routine Psychiatric Exam Present: normal affect, normal thought process, cooperative Results - Labs CBC & Chem 7: 02/13/18 14:49 02/13/18 14:49 Assessment and Plan (1) Vaginal candidiasis Current visit: Yes Status: Acute (2) Vulvar discomfort Current visit: Yes Status: Acute Assessment and Plan: Impression Vaginal candidiasis vs cellulitis Vulvar Erythema vs cellulitis Diet controlled DM CHF A-fibulation Chronic anticoagulation with Eliquis GERD FABIO Obesity Plan Admit patient outpatient observation under the care of Dr Armstrong Will obtain CBC, BMP, Lactate, Procalconin, UA and blood culture for further medical evaluation Will start nystatin ointment topically along with PO Diflucan 150mg daily May consider starting antibiotic therapy if patient appears to have infectious process/SIRS criteria, leukocytosis, or fever Monitor Accucheck PRN only as she is diet controlled only Will need to review home medications once reconciled by nursing staff SCD to bilateral lower ext for DVT PPX and continue Eliquis She does wish to be a DNR and this order is written Will discuss further order and plan of care with attending, Dr Armstrong At time of discharge medical care is to return to PCP Dr Bauer DVT Prophylaxis: SCD's Resuscitation Status: Do Not Resuscitate - Physician Narrative Physician: Jer Armstrong MD Narrative: Date: 02/13/18 Time: 1729 Have independently interviewed and examined pt. Chart reviewed. Case discussed with Dr Guallpa and my CORE MACHINE OPERATOR. Care plan developed with my supervision; agree with above. Presents to clinic secondary to increasing itching/pain in vulvar and peroneal area. Symptoms started with vaginal itching on 02/09, but has since spread. Can' t stop scratching. Peroneal area with progressive increase irritation and excoriation. Topical treatments not helping. Recent antibiotics for ab wall cellulitis which has since resolved. Not f/c at time. Breathing stable. No chest pressure or pain. Eating well. No n/v/ Stools with some variability. Seen in clinic and with extensive nature of excoriation, Dr Guallpa felt further evaluation warranted. Placed in OBS for care. Lungs: clear CV: regular AB: soft nt/nd MSE: awake alert appropriate Plan: OBS. Currently not seeing evidence for SIRS/Sepsis. Initiate topical antifungals and oral Diflucan. Will place consult with wound team for treatment recommendations. Continue with home medications. Monitor lab. DNR as per her requests. Care to return to Dr Guallpa at time of [place] [facility] [place] Summary Disclaimer: The visit summary below is not to be considered part of the above Progress Note. Hospital Course: 02/13/2018- Admission Admit patient outpatient observation under the care of Dr Armstrong. Will obtain CBC, BMP, Lactate, Procalconin, UA and blood culture for further medical evaluation. Will start nystatin ointment topically along with PO Diflucan 150mg daily. May consider starting antibiotic therapy if patient appears to have infectious process/SIRS criteria, leukocytosis, or fever. Monitor Accucheck PRN only as she is diet controlled only. Will need to review home medications once reconciled by nursing staff. SCD to bilateral lower ext for DVT PPX and continue Eliquis. She does wish to be a DNR and this order is written. At time of discharge medical care is to return to PCP Dr Bauer.
[2018-02-13] MEDS: FLUCONAZOLE 150 MG TABLET PO SCH (17:36)
[2018-02-13] MEDS: NYSTATIN OINTMENT 15gm TP SCH ×2 (17:37→21:03)
[2018-02-13] MEDS: SIMVASTATIN 20 MG TABLET PO SCH (21:02)
[2018-02-13] MEDS: APIXABAN 5 MG TABLET PO SCH (21:02)
[2018-02-13] MEDS: SOTALOL 80 MG TABLET PO SCH (21:10)
[2018-02-14] MEDS: OMEPRAZOLE 20 MG CAPSULE PO SCH (06:16)
[2018-02-14] MEDS: SOTALOL 80 MG TABLET PO SCH ×2 (06:16→16:57)
[2018-02-14] MEDS: ALLOPURINOL 300 MG TABLET PO SCH (09:20)
[2018-02-14] MEDS: AMLODIPINE 2.5 MG TABLET PO SCH (09:21)
[2018-02-14] MEDS: FLUCONAZOLE 150 MG TABLET PO SCH (09:22)
[2018-02-14] MEDS: APIXABAN 5 MG TABLET PO SCH ×2 (09:22→20:58)
[2018-02-14] MEDS: Valsartan 160 MG TABLET PO SCH (09:22)
[2018-02-14] MEDS: NYSTATIN OINTMENT 15gm TP SCH ×3 (09:48→21:00)
--- NOTE | 2018-02-14 13:33 | Wound Care Progress Note ---
Wound Center Progress Note: Pt seen for wound consultation r/t erythema/pain to perirectal region. Pt resting in bed watching TV. Pt reports she has been having itching/pain in this area for the past six years. At home she has tried various topical creams over the years. On 02/09/18 she noticed an increase in vaginal itching, she applied a topical cream and Vaseline at home; however, the condition continued to worsen. She went to her PCP on 02/13/18, who advised she go [place] [facility] [place]. Pt reports she uses [employer]'s Kaylan Wash to romana area at home, she is at times incontinent, wears pads, and washes herself and undergarments daily. She has not been using any different hygiene products or soaps lately. Perirectal area: blanchable erythema, no open areas at this time. Nursing staff is applying Nystatin ointment TID and giving PO Diflucan. Recommendations : Use an unscented pH balanced cleanser at home, while at home no not wear briefs/leave area open to air, continue with antifungal cream as prescribed, and ask PCP about using an anti itch medication such as Benadryl.
[2018-02-14] MEDS: ACETAMINOPHEN 325 MG TABLET PO PRN (15:55)
[2018-02-14] MEDS: SALINE FLUSH 10ml SYRINGE IVF PRN (16:54)
[2018-02-14] MEDS: NS FLUSH BAG 500ml IV PRN (16:54)
--- NOTE | 2018-02-14 16:57 | Progress Note ---
- Date 02/14/18 Subjective: F/U: Vaginal candidiasis vs cellulitis, Vulvar Erythema vs cellulitis Doing about the same-still with itch to vulvar area. Oral Benadryl help some. Wound care helping. Was seen by wound team and recommends continuation of topical Nystatin and oral Diflucan. At home could use an unscented pH balanced cleanser at home, while at home no not wear briefs/leave area open to air, and continue with antifungal cream as prescribed. Breathing well. No nausea. Did have temp elevation to 101.1 this afternoon. Urine growing Proteus and gram neg rods. Objective Vital signs: Temperature 101.1 F H 02/14/18 15:36 Pulse Rate 59 L 02/14/18 16:01 Respiratory Rate 16 02/14/18 15:36 Blood Pressure 151/60 H 02/14/18 15:51 Pulse Oximetry 96 02/14/18 15:36 Height/Weight/BMI: Height 1.5 m Weight 91.5 kg Body Mass Index 41.8 - Constitutional Present: well nourished, well developed, morbidly obese, cooperative - Routine HEENT Exam Head: Present: normocephalic, atraumatic Eye: Present: EOMI, PERRL ENT: Present: mucous membranes moist - Routine Respiratory Exam Present: CTA bilaterally. Absent: respiratory distress - Routine Cardiovascular Exam Present: RRR, no murmur - Routine Abdominal Exam Present: soft, normoactive bowel sounds, non distended, non tender - Routine Extremities Exam Present: pulses intact. Absent: cyanosis, clubbing - Routine Musculoskeletal Exam Musculoskeletal: Present: no clubbing or cyanosis - Routine Neurological Exam Present: alert, oriented X3, CN II-XII intact, moving all extremities, vision grossly intact, hearing grossly intact, normal speech. Absent: motor deficit, altered mental status - Routine Psychiatric Exam Present: normal affect, normal thought process, cooperative Results - Labs CBC & Chem 7: 02/14/18 04:32 02/14/18 04:32 Microbiology Results: Microbiology 02/13/18 14:49 Peripheral/Iv Start Blood Culture - Preliminary No Growth After 1 Day 02/13/18 17:56 Urine, Voided (Cc/notcc) Urine Culture - Preliminary Gram Negative Brian Proteus mirabilis 02/13/18 16:37 Midline Blood Culture - Preliminary Culture Initiated - Results Pending Assessment and Plan (1) Vaginal candidiasis Current visit: Yes Status: Acute (2) Vulvar discomfort Current visit: Yes Status: Acute Assessment and Plan: Impression Vaginal candidiasis vs cellulitis Vulvar Erythema vs cellulitis UTI - Proteus and gram neg brian growing Febrile process Diet controlled DM CHF A-fibulation Chronic anticoagulation with Eliquis GERD FABIO Obesity Plan Urine growing Proteus and gram neg brian. With temp elevation this afternoon will start ceftriaxone for coverage. Continue oral Diflucan and topical Nystatin for dermatitis/candidiasis. Wound Team recommends: Use of unscented pH balanced cleanser at home, While at home no not wear briefs/leave area open to air, Continue with antifungal cream as prescribed. Will recheck CBC and procalcitonin in am secondary to UTI and temp elevation. Check BMP secondary to medication use. Case discussed with CM. Time spent with patient care 25 minutes. - Physician Narrative Narrative: Date: 02/14/18 Time: 1654 Hospital Course Summary Disclaimer: The visit summary below is not to be considered part of the above Progress Note. Hospital Course: 02/13/2018- Admission Admit patient outpatient observation under the care of Dr Armstrong. Will obtain CBC, BMP, Lactate, Procalconin, UA and blood culture for further medical evaluation. Will start nystatin ointment topically along with PO Diflucan 150mg daily. May consider starting antibiotic therapy if patient appears to have infectious process/SIRS criteria, leukocytosis, or fever. Monitor Accucheck PRN only as she is diet controlled only. Will need to review home medications once reconciled by nursing staff. SCD to bilateral lower ext for DVT PPX and continue Eliquis. She does wish to be a DNR and this order is written. At time of discharge medical care is to return to PCP Dr Bauer. 11/17/17 Urine growing Proteus and gram neg brian. With temp elevation this afternoon will start ceftriaxone for coverage. Continue oral Diflucan and topical Nystatin for dermatitis/candidiasis. Wound Team recommends: Use of unscented pH balanced cleanser at home, While at home no not wear briefs/leave area open to air, Continue with antifungal cream as prescribed.
[2018-02-14] MEDS: SIMVASTATIN 20 MG TABLET PO SCH (20:58)
[2018-02-15] MEDS: SOTALOL 80 MG TABLET PO SCH ×2 (06:21→17:22)
[2018-02-15] MEDS: OMEPRAZOLE 20 MG CAPSULE PO SCH (06:21)
[2018-02-15] MEDS: Valsartan 160 MG TABLET PO SCH (09:05)
[2018-02-15] MEDS: AMLODIPINE 2.5 MG TABLET PO SCH (09:06)
[2018-02-15] MEDS: ALLOPURINOL 300 MG TABLET PO SCH (09:06)
[2018-02-15] MEDS: APIXABAN 5 MG TABLET PO SCH ×2 (09:06→21:52)
[2018-02-15] MEDS: FLUCONAZOLE 150 MG TABLET PO SCH (09:06)
[2018-02-15] MEDS: NYSTATIN OINTMENT 15gm TP SCH ×3 (09:36→21:51)
[2018-02-15] MEDS: CEFTRIAXONE 1 G in NS 100 ML IV SCH (10:27)
[2018-02-15] MEDS: SALINE FLUSH 10ml SYRINGE IVF PRN (10:27)
--- NOTE | 2018-02-15 10:55 | Progress Note ---
- Date 02/15/18 Subjective: Ora is seen this morning in follow up. She continues to have significant amount of her and vaginal discomfort. She states that she is having more pain to the area this morning. She is unable to clean or wipe herself due to the ability to reach as well as amount of discomfort. Again had a fever of 100.5 overnight. Objective Vital signs: Temperature 99 F 02/15/18 07:16 Pulse Rate 59 L 02/15/18 08:01 Respiratory Rate 21 02/15/18 07:16 Blood Pressure 142/50 H 02/15/18 07:16 Pulse Oximetry 94 02/15/18 07:16 Height/Weight/BMI: Height 1.5 m Weight 96 kg Body Mass Index 41.8 - Constitutional Present: no acute distress, well nourished, well developed - Routine HEENT Exam Eye: Present: EOMI ENT: Present: mucous membranes moist, dentition normal - Routine Respiratory Exam Present: CTA bilaterally. Absent: wheezes - Routine Cardiovascular Exam Present: RRR, S1, S2. Absent: murmur - Routine Abdominal Exam Present: soft, normoactive bowel sounds, non distended. Absent: tenderness - Routine Exam Perineal: Present: erythema, tenderness Comments: white discharge with odor of yeast. Tenderness to vulvar region - Routine Extremities Exam Present: full ROM - Routine Back/Spine/Pelvis Exam Back/Spine: Present: full ROM - Routine Skin Exam Present: intact, dry, warm - Routine Neurological Exam Present: alert, oriented X3, CN II-XII intact, moving all extremities - Routine Lymphatic Exam Lymphatic: Absent: adenopathy - Routine Psychiatric Exam Present: normal affect, cooperative Results - Labs CBC & Chem 7: 02/15/18 04:47 02/15/18 04:47 Microbiology Results: Microbiology 02/13/18 17:56 Urine, Voided (Cc/notcc) Urine Culture - Final Klebsiella pneumoniae Proteus mirabilis 02/13/18 16:37 Midline Blood Culture - Preliminary No Growth After 1 Day 02/13/18 14:49 Peripheral/Iv Start Blood Culture - Preliminary No Growth After 1 Day Assessment and Plan (1) Vaginal candidiasis Current visit: Yes Status: Acute (2) Vulvar discomfort Current visit: Yes Status: Acute Assessment and Plan: Impression Vaginal candidiasis vs cellulitis Vulvar Erythema vs cellulitis UTI - Proteus and gram neg linette growing Febrile process Diet controlled DM CHF A-fibulation Chronic anticoagulation with Eliquis GERD FABIO Obesity Plan UTI positive klebsiella and proteus mirabilis- sensitive to Rocephin Continue with oral Diflucan, topical nystatin ointment. Will also add nystatin powder to help with drying Continued recommendation by wound team Need to monitor for further fevers given. Patient did have a fever overnight. Labs have remained stable. Case discussed with disability case manager. Question possible home health once patient is more medically stable to help with hygiene and care Case discussed with attending, Dr. Armstrong DVT Prophylaxis: SCD's, Eliquis Resuscitation Status: Do Not Resuscitate - Physician Narrative Physician: Jer Armstrong MD Narrative: Date: 02/15/18 Time: 1734 Have independently interviewed and examined pt. Chart reviewed. Case discussed with CM and my MERCHANDISE COLLECTOR. Care plan developed with my supervision; agree with above. Rough day-persistent pain to perineum, burning/itching. Did take [place] this afternoon which helped some. Hard to be up and move secondary to pain. Breathing well. No chest pain. Lungs: clear CV: regular AB: soft nt MSE: awake alert appropriate Plan: Continue wound care-added Nystatin to try to help dry the area. Will continue with Rocephin for urinary treatments-have good sensitivities. PT/OT to help with ambulation. Monitor lab. Hospital Course Summary Disclaimer: The visit summary below is not to be considered part of the above Progress Note. Hospital Course: 02/13/2018- Admission Admit patient outpatient observation under the care of Dr Armstrong. Will obtain CBC, BMP, Lactate, Procalconin, UA and blood culture for further medical evaluation. Will start nystatin ointment topically along with PO Diflucan 150mg daily. May consider starting antibiotic therapy if patient appears to have infectious process/SIRS criteria, leukocytosis, or fever. Monitor Accucheck PRN only as she is diet controlled only. Will need to review home medications once reconciled by nursing staff. SCD to bilateral lower ext for DVT PPX and continue Eliquis. She does wish to be a DNR and this order is written. At time of discharge medical care is to return to PCP Dr Bauer. 02/14/18 Urine growing Proteus and gram neg linette. With temp elevation this afternoon will start ceftriaxone for coverage. Continue oral Diflucan and topical Nystatin for dermatitis/candidiasis. Wound Team recommends: Use of unscented pH balanced cleanser at home, While at home no not wear briefs/leave area open to air, Continue with antifungal cream as prescribed. 02/15/18 UTI positive klebsiella and proteus mirabilis- sensitive to Rocephin Continue with oral Diflucan, topical nystatin ointment. Will also add nystatin powder to help with drying Continued recommendation by wound team Need to monitor for further fevers given. Patient did have a fever overnight. Labs have remained stable. Case discussed with disability case manager. Question possible home health once patient is more medically stable to help with hygiene and care
[2018-02-15] MEDS: ACETAMINOPHEN 325 MG TABLET PO PRN (14:26)
[2018-02-15] MEDS: HYDROCODONE/APAP 5mg/325mg TABLET PO PRN ×2 (15:55→22:24)
[2018-02-15] MEDS: SIMVASTATIN 20 MG TABLET PO SCH (21:52)
[2018-02-16] MEDS: OMEPRAZOLE 20 MG CAPSULE PO SCH (06:09)
[2018-02-16] MEDS: SOTALOL 80 MG TABLET PO SCH ×2 (06:09→17:31)
[2018-02-16] MEDS: HYDROCODONE/APAP 5mg/325mg TABLET PO PRN ×3 (06:59→21:40)
[2018-02-16] MEDS: Valsartan 160 MG TABLET PO SCH (09:19)
[2018-02-16] MEDS: FLUCONAZOLE 150 MG TABLET PO SCH (09:20)
[2018-02-16] MEDS: AMLODIPINE 2.5 MG TABLET PO SCH (09:20)
[2018-02-16] MEDS: ALLOPURINOL 300 MG TABLET PO SCH (09:20)
[2018-02-16] MEDS: APIXABAN 5 MG TABLET PO SCH ×2 (09:20→21:40)
[2018-02-16] MEDS: NYSTATIN OINTMENT 15gm TP SCH ×3 (09:22→21:42)
[2018-02-16] MEDS: CEFTRIAXONE 1 G in NS 100 ML IV SCH (09:25)
--- NOTE | 2018-02-16 11:55 | Progress Note ---
- Date 02/16/18 Subjective: Ora is finally starting to see some improvement in her discomfort. She also was given an assistive device that resemble tongs by OT to help her clean herself and apply ointment. She denies any other new sx ie chest pain, SOA, abd pain, n/v, weakness/dizziness. Initially she wasn't interested in home health, but after discussing with her son, she agreed to trying home health. Objective Vital signs: Temperature 97.3 F 02/16/18 07:27 Pulse Rate 59 L 02/16/18 08:00 Respiratory Rate 16 02/16/18 09:21 Blood Pressure 134/60 02/16/18 07:27 Pulse Oximetry 94 02/16/18 07:27 Height/Weight/BMI: Height 1.5 m Weight 96.9 kg Body Mass Index 41.8 - Constitutional Present: no acute distress, well nourished, well developed, obese - Routine HEENT Exam Head: Present: normocephalic Eye: Present: PERRL. Absent: conjunctival icterus, scleral injection - Routine Respiratory Exam Present: CTA bilaterally - Routine Cardiovascular Exam Present: RRR, S1, S2 - Routine Abdominal Exam Present: soft, normoactive bowel sounds, non distended, non tender - Routine Extremities Exam Present: no edema, pulses intact, normal capillary refill. Absent: calf tenderness - Routine Skin Exam Present: intact, dry, warm - Routine Neurological Exam Present: alert, oriented X3, normal speech - Routine Psychiatric Exam Present: normal affect, normal thought process, cooperative Results - Labs CBC & Chem 7: 02/15/18 04:47 02/15/18 04:47 Microbiology Results: Microbiology 02/13/18 16:37 Midline Blood Culture - Preliminary No Growth After 2 Days 02/13/18 14:49 Peripheral/Iv Start Blood Culture - Preliminary No Growth After 2 Days 02/13/18 17:56 Urine, Voided (Cc/notcc) Urine Culture - Final Klebsiella pneumoniae Proteus mirabilis Assessment and Plan (1) Vaginal candidiasis Current visit: Yes Status: Acute (2) Vulvar discomfort Current visit: Yes Status: Acute Assessment and Plan: Impression Vaginal candidiasis vs cellulitis Vulvar Erythema vs cellulitis - skin culture + for Group B strep UTI - Klebsiella pneumoniae Febrile process Diet controlled DM CHF A-fibrillation Chronic anticoagulation with Eliquis GERD FABIO Obesity Plan No fevers last night. Continue Rocephin for klebsiella UTI. Received vulvar skin culture results from [facility] - pos for group B strep, ceftriaxone should adequately cover. Continue Diflucan, nystatin. OT demonstrated use of assistive device for hygiene. Reconsidering Home Health - CM aware. Will discuss DC plans with Dr. Armstrong. DVT Prophylaxis: SCD's GI Prophylaxis: Omeprazole Resuscitation Status: Do Not Resuscitate - Time spent with patient Time with patient PN: 25 minutes - Physician Narrative Physician: Jer Armstrong MD Narrative: Date: 02/16/18 Time: 1613 Have independently interviewed and examined pt. Chart reviewed. Case discussed with CM and my TECHNICAL SERVICES LIBRARIAN. Care plan developed with my supervision; agree with above. Doing better this evening-pain decreasing to where it is just about tolerable. Not as painful getting out of bed. Encouraged with therapy-was taught how to use assistive device to clean her bottom. Breathing well. Not having f/c. Appetite stable. Lungs: decreased, good air movement. CV: regular AB: soft nt MSE: awake alert Plan: Continue with wound care. Will continue Rocephin/Diflucan. Continue with pain control. Increase activities as able. Home Health arrangements made for discharge. Starting to make gains. Hospital Course Summary Disclaimer: The visit summary below is not to be considered part of the above Progress Note. Hospital Course: 02/13/2018- Admission Admit patient outpatient observation under the care of Dr Armstrong. Will obtain CBC, BMP, Lactate, Procalconin, UA and blood culture for further medical evaluation. Will start nystatin ointment topically along with PO Diflucan 150mg daily. May consider starting antibiotic therapy if patient appears to have infectious process/SIRS criteria, leukocytosis, or fever. Monitor Accucheck PRN only as she is diet controlled only. Will need to review home medications once reconciled by nursing staff. SCD to bilateral lower ext for DVT PPX and continue Eliquis. She does wish to be a DNR and this order is written. At time of discharge medical care is to return to PCP Dr Bauer. 02/14/18 Urine growing Proteus and gram neg linette. With temp elevation this afternoon will start ceftriaxone for coverage. Continue oral Diflucan and topical Nystatin for dermatitis/candidiasis. Wound Team recommends: Use of unscented pH balanced cleanser at home, While at home no not wear briefs/leave area open to air, Continue with antifungal cream as prescribed. 02/15/18 UTI positive klebsiella and proteus mirabilis- sensitive to Rocephin Continue with oral Diflucan, topical nystatin ointment. Will also add nystatin powder to help with drying Continued recommendation by wound team Need to monitor for further fevers given. Patient did have a fever overnight. Labs have remained stable. Case discussed with rehabilitation case coordinator. Question possible home health once patient is more medically stable to help with hygiene and care 02/16/18 No fevers last night. Continue Rocephin for klebsiella UTI. Received vulvar skin culture results from - pos for group B strep, ceftriaxone should adequately cover. Continue Diflucan, nystatin. OT demonstrated use of assistive device for hygiene. Reconsidering Home Health - CM aware.
[~2018-02-16 14:25] MED LIST: CEFTRIAXONE 1 G in NS 100 ML IV SCH; DiphenhydrAMINE 25 MG CAPSULE PO PRN; SOTALOL 80 MG TABLET PO SCH; WARFARIN - PHARMACY CONSULT MC ONE
[2018-02-16] MEDS: SIMVASTATIN 20 MG TABLET PO SCH (21:40)
[2018-02-17] MEDS: SOTALOL 80 MG TABLET PO SCH ×2 (06:49→19:52)
[2018-02-17] MEDS: OMEPRAZOLE 20 MG CAPSULE PO SCH (06:50)
[2018-02-17] MEDS: FLUCONAZOLE 150 MG TABLET PO SCH (10:02)
[2018-02-17] MEDS: HYDROCODONE/APAP 5mg/325mg TABLET PO PRN ×2 (10:02→21:19)
[2018-02-17] MEDS: ALLOPURINOL 300 MG TABLET PO SCH (10:03)
[2018-02-17] MEDS: AMLODIPINE 2.5 MG TABLET PO SCH (10:04)
[2018-02-17] MEDS: APIXABAN 5 MG TABLET PO SCH ×2 (10:04→21:19)
[2018-02-17] MEDS: NYSTATIN OINTMENT 15gm TP SCH ×3 (10:05→21:19)
[2018-02-17] MEDS: CEFTRIAXONE 1 G in NS 100 ML IV SCH (10:51)
[2018-02-17] MEDS: Valsartan 160 MG TABLET PO SCH (10:52)
[2018-02-17] MEDS: MORPHINE SULFATE 4mg INJECTION IVP PRN (11:20)
--- NOTE | 2018-02-17 13:47 | Progress Note ---
- Date 02/17/18 Subjective: Ora began having increased pain last night. It worsens with activity, but she knows the importance of staying active and trying to walk a few times a day. The pain is affecting her appetite - she didn't want to eat anything for supper last night and only ate a small amount at breakfast. When I saw her before lunch , her pain had increased to 10/10 despite taking a [place] before going on a walk. She was afraid that the pain would be excessive during the bath, which was next on her agenda. She's used the assistive device once, and found that she has to use it with her left hand because of the angle. She denies other new c/o such as breathing difficulties, chest pain, or dizziness. Bowels are moving. Objective Vital signs: Temperature 98.1 F 02/17/18 07:30 Pulse Rate 62 02/17/18 07:30 Respiratory Rate 18 02/17/18 11:20 Blood Pressure 134/51 02/17/18 07:30 Pulse Oximetry 96 02/17/18 07:30 Height/Weight/BMI: Height 1.5 m Weight 98 kg Body Mass Index 41.8 - Constitutional Present: no acute distress, well nourished, well developed, obese - Routine HEENT Exam Head: Present: normocephalic Eye: Present: PERRL. Absent: conjunctival icterus, scleral injection ENT: Present: mucous membranes moist, oropharynx clear - Routine Respiratory Exam Present: CTA bilaterally - Routine Cardiovascular Exam Present: RRR, S1, S2 - Routine Abdominal Exam Present: soft, normoactive bowel sounds, non distended, non tender - Routine Exam Comments: erythema to pelvis/tracy/vagina; malodorous; covered in nystatin ointment/ powder. Very tender to touch. - Routine Extremities Exam Present: no edema, pulses intact - Routine Back/Spine/Pelvis Exam Back/Spine: Present: full ROM - Routine Musculoskeletal Exam Musculoskeletal: Present: moving extremities well - Routine Skin Exam Present: intact, dry, warm - Routine Neurological Exam Present: alert, oriented X3, CN II-XII intact, normal speech - Routine Psychiatric Exam Present: normal affect, normal thought process, cooperative Results - Labs CBC & Chem 7: 02/15/18 04:47 02/15/18 04:47 Microbiology Results: Microbiology 02/13/18 16:37 Midline Blood Culture - Preliminary No Growth After 3 Days 02/13/18 14:49 Peripheral/Iv Start Blood Culture - Preliminary No Growth After 3 Days 02/13/18 17:56 Urine, Voided (Cc/notcc) Urine Culture - Final Klebsiella pneumoniae Proteus mirabilis Assessment and Plan (1) Vaginal candidiasis Current visit: Yes Status: Acute (2) Vulvar discomfort Current visit: Yes Status: Acute Assessment and Plan: Impression Vaginal candidiasis vs cellulitis Vulvar cellulitis - skin culture + for Group B strep UTI - Klebsiella pneumoniae Febrile process Diet controlled DM CHF - chronic A-fibrillation Chronic anticoagulation with Eliquis GERD FABIO Obesity Plan Afebrile; but increased pain today requiring IV morphine. Continue Rocephin for klebsiella UTI. Continue Diflucan, nystatin. OT demonstrated use of assistive device for hygiene - encouraged ongoing use. When pain is under adequate control with oral meds will likely be able to go home with home health. Recheck CBC, BMP in am. DVT Prophylaxis: Eliquis GI Prophylaxis: Omeprazole Resuscitation Status: Do Not Resuscitate - Physician Narrative Physician: Mona Pisano MD Narrative: Date: 02/17/18 Time: 1800 I have independently evaluated and examined this patient. I reviewed the chart, the patient's history, and the PERFORMANCE IMPROVEMENT DIRECTOR/PA's documented findings as above. We discussed and formulated the assessment and plan as above with additions as below: Mrs. Romeo describes increased pain with topical care of perineal wounds today compared to yesterday. She complains that urine touching skin causes pain but denies dysuria. She's unsure if she's still having significant vaginal discharge. Denies dyspnea and no fevers recorded for the past 48 hours. NAD, alert, respirations nonlabored with good airflow; wounds not directly visualized. Continue management of group B strep cellulitis and yeast vaginitis as outlined above. Telemetry strips reviewed by myself-sinus rhythm. [place] increased to 1-2 tablets every 4 when necessary; may require higher dose for pain management orally. Hospital Course Summary Disclaimer: The visit summary below is not to be considered part of the above Progress Note. Hospital Course: 02/13/2018- Admission Admit patient outpatient observation under the care of Dr Armstrong. Will obtain CBC, BMP, Lactate, Procalconin, UA and blood culture for further medical evaluation. Will start nystatin ointment topically along with PO Diflucan 150mg daily. May consider starting antibiotic therapy if patient appears to have infectious process/SIRS criteria, leukocytosis, or fever. Monitor Accucheck PRN only as she is diet controlled only. Will need to review home medications once reconciled by nursing staff. SCD to bilateral lower ext for DVT PPX and continue Eliquis. She does wish to be a DNR and this order is written. At time of discharge medical care is to return to PCP Dr Bauer. 02/14/18 Urine growing Proteus and gram neg linette. With temp elevation this afternoon will start ceftriaxone for coverage. Continue oral Diflucan and topical Nystatin for dermatitis/candidiasis. Wound Team recommends: Use of unscented pH balanced cleanser at home, While at home no not wear briefs/leave area open to air, Continue with antifungal cream as prescribed. 02/15/18 UTI positive klebsiella and proteus mirabilis- sensitive to Rocephin Continue with oral Diflucan, topical nystatin ointment. Will also add nystatin powder to help with drying Continued recommendation by wound team Need to monitor for further fevers given. Patient did have a fever overnight. Labs have remained stable. Case discussed with immigration case manager. Question possible home health once patient is more medically stable to help with hygiene and care 02/16/18 No fevers last night. Continue Rocephin for klebsiella UTI. Received vulvar skin culture results from [facility] - pos for group B strep, ceftriaxone should adequately cover. Continue Diflucan, nystatin. OT demonstrated use of assistive device for hygiene. Reconsidering Home Health - CM aware. 02/17/18 Afebrile; but increased pain today requiring IV morphine.
[2018-02-17] MEDS: SIMVASTATIN 20 MG TABLET PO SCH (21:19)
[2018-02-18] MEDS: OMEPRAZOLE 20 MG CAPSULE PO SCH (05:54)
[2018-02-18] MEDS: SOTALOL 80 MG TABLET PO SCH ×2 (05:54→17:12)
[2018-02-18] MEDS: HYDROCODONE/APAP 5mg/325mg TABLET PO PRN ×2 (05:55→18:52)
[2018-02-18] MEDS: MORPHINE SULFATE 4mg INJECTION IVP PRN ×2 (09:42→15:49)
[2018-02-18] MEDS: NYSTATIN OINTMENT 15gm TP SCH ×3 (09:49→20:37)
[2018-02-18] MEDS: APIXABAN 5 MG TABLET PO SCH ×2 (09:50→20:37)
[2018-02-18] MEDS: FLUCONAZOLE 150 MG TABLET PO SCH (09:50)
[2018-02-18] MEDS: Valsartan 160 MG TABLET PO SCH (09:50)
[2018-02-18] MEDS: AMLODIPINE 2.5 MG TABLET PO SCH (09:51)
[2018-02-18] MEDS: ALLOPURINOL 300 MG TABLET PO SCH (09:52)
[2018-02-18] MEDS: NS FLUSH BAG 500ml IV PRN (10:21)
[2018-02-18] MEDS: CEFTRIAXONE 1 G in NS 100 ML IV SCH (10:21)
[2018-02-18] MEDS: SALINE FLUSH 10ml SYRINGE IVF PRN (10:21)
--- NOTE | 2018-02-18 12:02 | Progress Note ---
- Date 02/18/18 Subjective: Ora is seen this morning while resting in bed. Overall, she feels that her vaginal irritation, pain and itching is improving. She is does continue to request morphine prior to romana-care. Denies Abdominal pain, chest pain, shortness of breath. Bowels are moving regularly. Has been up and ambulating in the oro twice a day. She states this does wear her out. She is fatigued. He remains afebrile since 02/15. Objective Vital signs: Temperature 97.2 F 02/18/18 08:00 Pulse Rate 62 02/18/18 08:00 Respiratory Rate 18 02/18/18 09:42 Blood Pressure 152/63 H 02/18/18 08:00 Pulse Oximetry 94 02/18/18 08:00 Height/Weight/BMI: Height 1.5 m Weight 98 kg Body Mass Index 41.8 - Constitutional Present: well nourished, well developed - Routine HEENT Exam Eye: Present: EOMI ENT: Present: mucous membranes moist, dentition normal - Routine Respiratory Exam Present: CTA bilaterally. Absent: wheezes - Routine Cardiovascular Exam Present: RRR, S1, S2. Absent: murmur - Routine Abdominal Exam Present: soft, normoactive bowel sounds, non distended. Absent: tenderness - Routine Extremities Exam Present: normal capillary refill - Routine Skin Exam Present: intact, dry, warm - Routine Neurological Exam Present: alert, oriented X3, CN II-XII intact, moving all extremities - Routine Lymphatic Exam Lymphatic: Absent: adenopathy - Routine Psychiatric Exam Present: normal affect, cooperative Results - Labs CBC & Chem 7: 02/18/18 03:49 02/18/18 03:49 Microbiology Results: Microbiology 02/13/18 16:37 Midline Blood Culture - Preliminary No Growth After 4 Days 02/13/18 14:49 Peripheral/Iv Start Blood Culture - Preliminary No Growth After 4 Days 02/13/18 17:56 Urine, Voided (Cc/notcc) Urine Culture - Final Klebsiella pneumoniae Proteus mirabilis Assessment and Plan (1) Vaginal candidiasis Current visit: Yes Status: Acute (2) Vulvar discomfort Current visit: Yes Status: Acute Assessment and Plan: Impression Vaginal candidiasis vs cellulitis Vulvar cellulitis - skin culture + for Group B strep UTI - Klebsiella pneumoniae Febrile process Diet controlled DM CHF - chronic A-fibrillation Chronic anticoagulation with Eliquis GERD FABIO Obesity Plan Continue to have pain with cleaning and romana-care. Requiring IV Morphine Overall she feels that the discomfort is improving. Goal is use only PO pain mediations Today is day #5 of Rocephin for klebsiella UTI. Continue Diflucan, nystatin for candidiasis coverage Monitor blood counts- Hgb decreased to 9.4. Noted Digital X Ray Service Engineer up to 1.4. May need to consider holding Valsartan. Continue encouragement to work and ambulate with PT/OT. She is using a assistive device for hygiene CBC and BMP tomorrow morning DVT Prophylaxis: Eliquis GI Prophylaxis: Omeprazole Resuscitation Status: Do Not Resuscitate - Physician Narrative Physician: Mona Pisano MD Narrative: Date: 02/18/18 Time: 1620 I have independently evaluated and examined this patient. I reviewed the chart, the patient's history, and the STITCHING MACHINE FEEDER OR OFFBEARER/PA's documented findings as above. We discussed and formulated the assessment and plan as above with additions as below: Ora reports some improvement today with decreased discomfort overall although appetite remains poor. Nursing reports there's minimal residual vulvar erythema. Abdomen is soft and moderately distended but nontender; mons without erythema or ulcerations, visualized areas of proximal inner thighs without erythema. Coffee filters in groin creases. Continue current therapy, patient encouraged to use Dolph approximately 1 hour prior to wound care for pain control. Nutritional supplements added as desired. Hospital Course Summary Disclaimer: The visit summary below is not to be considered part of the above Progress Note. Hospital Course: 02/13/2018- Admission Admit patient outpatient observation under the care of Dr Armstrong. Will obtain CBC, BMP, Lactate, Procalconin, UA and blood culture for further medical evaluation. Will start nystatin ointment topically along with PO Diflucan 150mg daily. May consider starting antibiotic therapy if patient appears to have infectious process/SIRS criteria, leukocytosis, or fever. Monitor Accucheck PRN only as she is diet controlled only. Will need to review home medications once reconciled by nursing staff. SCD to bilateral lower ext for DVT PPX and continue Eliquis. She does wish to be a DNR and this order is written. At time of discharge medical care is to return to PCP Dr Bauer. 02/14/18 Urine growing Proteus and gram neg linette. With temp elevation this afternoon will start ceftriaxone for coverage. Continue oral Diflucan and topical Nystatin for dermatitis/candidiasis. Wound Team recommends: Use of unscented pH balanced cleanser at home, While at home no not wear briefs/leave area open to air, Continue with antifungal cream as prescribed. 02/15/18 UTI positive klebsiella and proteus mirabilis- sensitive to Rocephin Continue with oral Diflucan, topical nystatin ointment. Will also add nystatin powder to help with drying Continued recommendation by wound team Need to monitor for further fevers given. Patient did have a fever overnight. Labs have remained stable. Case discussed with transplant case manager. Question possible home health once patient is more medically stable to help with hygiene and care 02/16/18 No fevers last night. Continue Rocephin for klebsiella UTI. Received vulvar skin culture results from - pos for group B strep, ceftriaxone should adequately cover. Continue Diflucan, nystatin. OT demonstrated use of assistive device for hygiene. Reconsidering Home Health - CM aware. 02/17/18 Afebrile; but increased pain today requiring IV morphine. 02/18/18 Continue to have pain with cleaning and romana-care. Requiring IV Morphine. Overall she feels that the discomfort is improving. Goal is use only PO pain mediations Today is day #5 of Rocephin for klebsiella UTI. Continue Diflucan, nystatin for candidiasis coverage. Noted Digital X Ray Service Engineer up to 1.4. May need to consider holding Valsartan.
[2018-02-18] MEDS: SIMVASTATIN 20 MG TABLET PO SCH (20:38)
[2018-02-19] MEDS: OMEPRAZOLE 20 MG CAPSULE PO SCH (06:00)
[2018-02-19] MEDS: HYDROCODONE/APAP 5mg/325mg TABLET PO PRN ×2 (06:00→14:55)
[2018-02-19] MEDS: SOTALOL 80 MG TABLET PO SCH ×2 (06:01→17:51)
[2018-02-19] MEDS: FLUCONAZOLE 150 MG TABLET PO SCH (08:28)
[2018-02-19] MEDS: AMLODIPINE 2.5 MG TABLET PO SCH (08:29)
[2018-02-19] MEDS: Valsartan 160 MG TABLET PO SCH (08:29)
[2018-02-19] MEDS: APIXABAN 5 MG TABLET PO SCH ×2 (08:29→20:56)
[2018-02-19] MEDS: ALLOPURINOL 300 MG TABLET PO SCH (08:29)
[2018-02-19] MEDS: NYSTATIN OINTMENT 15gm TP SCH ×3 (08:32→21:18)
[2018-02-19] MEDS: CEFTRIAXONE 1 G in NS 100 ML IV SCH (10:20)
[2018-02-19] MEDS: NS 1,000 ML IV SCH ×2 (10:20→20:49)
--- NOTE | 2018-02-19 12:28 | Progress Note ---
- Date 02/19/18 Subjective: F/U: cellulitis, vaginal candidiasis, group B strep. Ora is seen this morning while resting in bed, watching TV. She reports that she is feeling a little better today but does admit to continuing to have some pain, especially with cleanings, to her genital region. She denies any chest pain, shortness of breath, abdominal pain, nausea, vomiting or dysuria. Her appetite remains decreased but stable and bowels are moving. Urinary output is adequate. Low grade temperature during the night (T 100.2). Labs revealed new leukocytosis (WBC 14.1) Hemoglobin continues to trend down slowly. Hgb 11.5 on admission and currently 9.3. BUN and SCr elevated today (BUN 50.0 and SCr 1.8) . Baseline SCr 1.1. Also noted new hyperglycemia (Glu 125). Given acute kidney injury, urine sodium and creatine obtained. Urine sodium was low at 18 and urine creatine 161.4. Objective Vital signs: Temperature 98.9 F 02/19/18 07:27 Pulse Rate 60 02/19/18 08:00 Respiratory Rate 20 02/19/18 07:27 Blood Pressure 116/58 02/19/18 07:27 Pulse Oximetry 94 02/19/18 07:27 Height/Weight/BMI: Height 4 ft 11 in Weight 217 lb 9.54 oz Body Mass Index 41.8 Comments: Resting in bed, watching TV. - Constitutional Present: no acute distress, well nourished, well developed, morbidly obese, cooperative - Routine HEENT Exam Head: Present: normocephalic, atraumatic Eye: Present: PERRL. Absent: conjunctival icterus ENT: Present: mucous membranes moist, oropharynx clear - Routine Respiratory Exam Present: CTA bilaterally. Absent: respiratory distress, wheezes - Routine Cardiovascular Exam Present: RRR, S1, S2 - Routine Abdominal Exam Present: soft, normoactive bowel sounds, non tender - Routine Exam Comments: Mild erythema noted to vaginal region. Exam limited due to patient's body habitus and treatment ointments in place. - Routine Extremities Exam Present: edema (1+), full ROM, pulses intact - Routine Back/Spine/Pelvis Exam Back/Spine: Present: full ROM. Absent: vertebral tenderness - Routine Musculoskeletal Exam Musculoskeletal: Present: no clubbing or cyanosis, moving extremities well - Routine Skin Exam Present: dry, warm Comments: Afebrile on exam following treatment. - Routine Neurological Exam Present: alert, moving all extremities, hearing grossly intact, normal speech - Routine Lymphatic Exam Lymphatic: Absent: lymphedema - Routine Psychiatric Exam Present: cooperative Results - Labs CBC & Chem 7: 02/19/18 03:35 02/19/18 03:35 Microbiology Results: Microbiology 02/13/18 16:37 Midline Blood Culture - Final No Growth After 5 Days 02/13/18 14:49 Peripheral/Iv Start Blood Culture - Final No Growth After 5 Days 02/13/18 17:56 Urine, Voided (Cc/notcc) Urine Culture - Final Klebsiella pneumoniae Proteus mirabilis Assessment and Plan (1) Vaginal candidiasis Current visit: Yes Status: Acute (2) Vulvar discomfort Current visit: Yes Status: Acute Assessment and Plan: Impression Vaginal candidiasis vs cellulitis Vulvar cellulitis - skin culture + for Group B strep UTI - Klebsiella pneumoniae Febrile process Diet controlled DM CHF - chronic A-fibrillation Chronic anticoagulation with Eliquis GERD FABIO Obesity Leukocytosis - NEW DIAGNOSIS. JOSE C - RLL 02/19/1802/19 Ora continues to have significant pain with cleanings, though she reports its improving. Continue pain control, trying to optimize use of oral pain medications. Continue Rocephin for klebsiella UTI - day 5. Urine culture also revealed proteus mirabilis with sensitivity pending. New leukocytosis - WBC 14.1 with persistent occasional fevers. Blood cultures remain negative x 5 days. Continue Diflucan, nystatin for candidiasis coverage Hemoglobin continues to trend down slowly. Will obtain fecal Hemoccult. Continue Prilosec for GI protection/GERD. BUN and SCr increased - BUN 50.0 and SCr 1.8. Baseline SCr 1.1. Urine sodium low at 18 and urine creatine 161.4 Initiate NS 125cc/hr for hydration and hold home losartan given renal injury. Recheck labs in AM to monitor blood counts, electrolytes and renal function. Continue encouragement to work and ambulate with PT/OT. She is using a assistive device for hygiene DVT Prophylaxis: SCD's GI Prophylaxis: Omeprazole Resuscitation Status: Do Not Resuscitate - Time spent with patient Time with patient PN: 30 minutes - Physician Narrative Physician: Mona Pisano MD Narrative: Date: 02/19/18 Time: 1819 I have independently evaluated and examined this patient. I reviewed the chart, the patient's history, and the TACK CUTTER/PA's documented findings as above. We discussed and formulated the assessment and plan as above with additions as below: Ora reports pain is slowly improving but she doesn't feel that she is yet capable of wound care independently. She is having frequent loose stools which are chronic by her description--C. difficile was positive late this afternoon however. She acknowledges poor oral intake of liquids. NAD, alert Abdomen soft, obese, nontender, bowel sounds present; mild erythema in the groin creases with superficial excoriation just above the left groin crease. Vancomycin initiated orally for C. difficile colitis. IV fluids for acute kidney injury-urine sodium suppressed consistent with dehydration although fractional excretion was 1.45%. Discussed with nursing. Hospital Course Summary Disclaimer: The visit summary below is not to be considered part of the above Progress Note. Hospital Course: 02/13/2018- Admission Admit patient outpatient observation under the care of Dr Armstrong. Will obtain CBC, BMP, Lactate, Procalconin, UA and blood culture for further medical evaluation. Will start nystatin ointment topically along with PO Diflucan 150mg daily. May consider starting antibiotic therapy if patient appears to have infectious process/SIRS criteria, leukocytosis, or fever. Monitor Accucheck PRN only as she is diet controlled only. Will need to review home medications once reconciled by nursing staff. SCD to bilateral lower ext for DVT PPX and continue Eliquis. She does wish to be a DNR and this order is written. At time of discharge medical care is to return to PCP Dr Bauer. 02/14/18 Urine growing Proteus and gram neg linette. With temp elevation this afternoon will start ceftriaxone for coverage. Continue oral Diflucan and topical Nystatin for dermatitis/candidiasis. Wound Team recommends: Use of unscented pH balanced cleanser at home, While at home no not wear briefs/leave area open to air, Continue with antifungal cream as prescribed. 02/15/18 UTI positive klebsiella and proteus mirabilis- sensitive to Rocephin Continue with oral Diflucan, topical nystatin ointment. Will also add nystatin powder to help with drying Continued recommendation by wound team Need to monitor for further fevers given. Patient did have a fever overnight. Labs have remained stable. Case discussed with disease case manager rn. Question possible home health once patient is more medically stable to help with hygiene and care 02/16/18 No fevers last night. Continue Rocephin for klebsiella UTI. Received vulvar skin culture results from [facility] - pos for group B strep, ceftriaxone should adequately cover. Continue Diflucan, nystatin. OT demonstrated use of assistive device for hygiene. Reconsidering Home Health - CM aware. 02/17/18 Afebrile; but increased pain today requiring IV morphine. 02/18/18 Continue to have pain with cleaning and romana-care. Requiring IV Morphine. Overall she feels that the discomfort is improving. Goal is use only PO pain mediations Today is day #5 of Rocephin for klebsiella UTI. Continue Diflucan, nystatin for candidiasis coverage. Noted Ball Winder up to 1.4. May need to consider holding Valsartan. 02/19 Ora continues to have significant pain with cleanings, though she reports its improving. Continue pain control, trying to optimize use of oral pain medications. Continue Rocephin for klebsiella UTI - day 5. Urine culture also revealed proteus mirabilis with sensitivity pending. New leukocytosis - WBC 14.1 with persistent occasional fevers. Blood cultures remain negative x 5 days. Frequent loose stools-C. difficile positive. Oral vancomycin initiated. Continue Diflucan, nystatin for candidiasis coverage Hemoglobin continues to trend down slowly. Will obtain fecal Hemoccult. Continue Prilosec for GI protection/GERD. BUN and SCr increased - BUN 50.0 and SCr 1.8. Baseline SCr 1.1. Urine sodium low at 18 and urine creatine 161.4 Initiate NS 125cc/hr for hydration and hold home losartan given renal injury.
[2018-02-19] MEDS: VANCOMYCIN 250mg/5ml ORAL LIQ PO SCH ×2 (17:51→21:15)
[2018-02-19] MEDS: SIMVASTATIN 20 MG TABLET PO SCH (20:56)
[2018-02-20] MEDS: VANCOMYCIN 250mg/5ml ORAL LIQ PO SCH ×4 (03:14→20:18)
[2018-02-20] MEDS: NS 1,000 ML IV SCH ×3 (05:12→20:16)
[2018-02-20] MEDS: OMEPRAZOLE 20 MG CAPSULE PO SCH (06:44)
[2018-02-20] MEDS: SOTALOL 80 MG TABLET PO SCH ×2 (06:44→16:22)
[2018-02-20] MEDS: CEFTRIAXONE 1 G in NS 100 ML IV SCH (10:18)
[2018-02-20] MEDS: FLUCONAZOLE 100 MG TABLET PO SCH (10:18)
[2018-02-20] MEDS: APIXABAN 5 MG TABLET PO SCH ×2 (10:20→20:18)
[2018-02-20] MEDS: AMLODIPINE 2.5 MG TABLET PO SCH (10:21)
[2018-02-20] MEDS: NYSTATIN OINTMENT 15gm TP SCH ×4 (10:23→20:18)
[2018-02-20] MEDS: ALLOPURINOL 300 MG TABLET PO SCH (10:23)
--- NOTE | 2018-02-20 10:43 | Progress Note ---
- Date 02/20/18 Subjective: Ora was seen just before breakfast was served this am. Her son Mike was also present. She denies any abdominal cramping or nausea, but doesn't feel like eating anything. She states that she had 3 bouts of diarrhea since midnight. She was told there's blood in her stools but it's uncertain if it's from hemorrhoids or from excoriated lesions. She states that her pain is better and it's been particularly helpful to premedicate with [place] about 30 min before romana-area cleaning. She denies SOA or chest pain. Because of C. diff she has limited access to hallway but is trying to ambulate in her room. Multiple questions were answered from Mike and also via phone call with another son, Neto in [place] who is a candle wicker. They also note that she was very groggy/loopy after 4 mg of Morphine on the . Objective Vital signs: Temperature 98.1 F 02/20/18 07:00 Pulse Rate 71 02/20/18 10:18 Respiratory Rate 14 02/20/18 07:00 Blood Pressure 168/65 H 02/20/18 10:18 Pulse Oximetry 99 02/20/18 07:00 Height/Weight/BMI: Height 1.5 m Weight 98.7 kg Body Mass Index 41.8 - Constitutional Present: no acute distress, well nourished, well developed, obese - Routine HEENT Exam Head: Present: normocephalic Eye: Present: PERRL. Absent: conjunctival icterus, scleral injection - Routine Respiratory Exam Present: CTA bilaterally - Routine Cardiovascular Exam Present: RRR, S1, S2 - Routine Abdominal Exam Present: soft, non distended, non tender. Absent: normoactive bowel sounds ( hyperactive) - Routine Extremities Exam Present: no edema, pulses intact - Routine Musculoskeletal Exam Musculoskeletal: Present: moving extremities well - Routine Skin Exam Present: dry, warm - Routine Neurological Exam Present: alert, oriented X3, CN II-XII intact, moving all extremities, vision grossly intact, hearing grossly intact, normal speech. Absent: sensory deficit , motor deficit, altered mental status, facial asymmetry - Routine Psychiatric Exam Present: normal affect, normal thought process, cooperative Results - Labs CBC & Chem 7: 02/20/18 03:47 02/20/18 03:47 Microbiology Results: Microbiology 02/13/18 16:37 Midline Blood Culture - Final No Growth After 5 Days 02/13/18 14:49 Peripheral/Iv Start Blood Culture - Final No Growth After 5 Days 02/13/18 17:56 Urine, Voided (Cc/notcc) Urine Culture - Final Klebsiella pneumoniae Proteus mirabilis Assessment and Plan (1) Vaginal candidiasis Current visit: Yes Status: Acute (2) Vulvar discomfort Current visit: Yes Status: Acute Assessment and Plan: Impression Vaginal candidiasis vs cellulitis Vulvar cellulitis - skin culture + for Group B strep UTI - Klebsiella pneumoniae Febrile process Diet controlled DM CHF - chronic A-fibrillation Chronic anticoagulation with Eliquis GERD FABIO Obesity Leukocytosis - 02/19/18. JOSE C - 02/19/18 C. difficile 02/19/1802/20 Pain control is overall improving. Cellulitis/yeast dermatitis also reportedly improving. Asked nurses to start with 2 mg morphine rather than 4 mg d/t adverse effect ( transient confusion/tiredness). Continue Rocephin to complete a 7-day course - through 02/21/18 - for UTI and cellulitis. Continue vancomycin for C. difficile. Start probiotics. Leukocytosis improved to 12.1. JOSE C improving though creatinine is still above baseline at 1.5. Continue NS at 125 ml/hr. Oral intake is minimal. K low-normal at 3.6 - KDur ordered. Stool pos for occult blood and hgb has trended down from 11 to 8.8. Pt is asymptomatic. She's on eliquis for A-fib. Monitor at this time. Discussed with Dr. Norris RN, and both sons. DVT Prophylaxis: Eliquis Resuscitation Status: Do Not Resuscitate - Time spent with patient Time with patient PN: 30 minutes Coordination of Care: >50% of visit spent providing counseling/coordination of care - Physician Narrative Physician: Mona Pisano MD Narrative: Date: 02/20/18 Time: 1605 I have independently evaluated and examined this patient. I reviewed the chart, the patient's history, and the SPUDDER/PA's documented findings as above. We discussed and formulated the assessment and plan as above with additions as below: Ora reports pain control is better overall and she was able to have wound care and topical medication application to the groin and inguinal creases completed without need for morphine today or yesterday. She doesn't think she needed [place] prior to treatment today either. She continues to have frequent watery stools and reports she is trying to drink more liquids today due to impaired renal function. NAD, alert; abdomen soft, nontender. Minimal erythema in the groin creases- coffee filters in place, musty odor persists. BUN/Creatinine slightly improved-continue to monitor carefully. Urine eosinophils pending. Continue fluids for probable dehydration. I don't believe patient is capable of providing self-care independently at this time, may require long-term. Hospital Course Summary Disclaimer: The visit summary below is not to be considered part of the above Progress Note. Hospital Course: 02/13/2018- Admission Admit patient outpatient observation under the care of Dr Armstrong. Will obtain CBC, BMP, Lactate, Procalconin, UA and blood culture for further medical evaluation. Will start nystatin ointment topically along with PO Diflucan 150mg daily. May consider starting antibiotic therapy if patient appears to have infectious process/SIRS criteria, leukocytosis, or fever. Monitor Accucheck PRN only as she is diet controlled only. Will need to review home medications once reconciled by nursing staff. SCD to bilateral lower ext for DVT PPX and continue Eliquis. She does wish to be a DNR and this order is written. At time of discharge medical care is to return to PCP Dr Bauer. 02/14/18 Urine growing Proteus and gram neg linette. With temp elevation this afternoon will start ceftriaxone for coverage. Continue oral Diflucan and topical Nystatin for dermatitis/candidiasis. Wound Team recommends: Use of unscented pH balanced cleanser at home, While at home no not wear briefs/leave area open to air, Continue with antifungal cream as prescribed. 02/15/18 UTI positive klebsiella and proteus mirabilis- sensitive to Rocephin Continue with oral Diflucan, topical nystatin ointment. Will also add nystatin powder to help with drying Continued recommendation by wound team Need to monitor for further fevers given. Patient did have a fever overnight. Labs have remained stable. Case discussed with case resource manager. Question possible home health once patient is more medically stable to help with hygiene and care 02/16/18 No fevers last night. Continue Rocephin for klebsiella UTI. Received vulvar skin culture results from - pos for group B strep, ceftriaxone should adequately cover. Continue Diflucan, nystatin. OT demonstrated use of assistive device for hygiene. Reconsidering Home Health - CM aware. 02/17/18 Afebrile; but increased pain today requiring IV morphine. 02/18/18 Continue to have pain with cleaning and romana-care. Requiring IV Morphine. Overall she feels that the discomfort is improving. Goal is use only PO pain mediations Today is day #5 of Rocephin for klebsiella UTI. Continue Diflucan, nystatin for candidiasis coverage. Noted Card Mounter up to 1.4. May need to consider holding Valsartan. 02/19 Ora continues to have significant pain with cleanings, though she reports its improving. Continue pain control, trying to optimize use of oral pain medications. Continue Rocephin for klebsiella UTI - day 5. Urine culture also revealed proteus mirabilis with sensitivity pending. New leukocytosis - WBC 14.1 with persistent occasional fevers. Blood cultures remain negative x 5 days. Frequent loose stools-C. difficile positive. Oral vancomycin initiated. Continue Diflucan, nystatin for candidiasis coverage Hemoglobin continues to trend down slowly. Will obtain fecal Hemoccult. Continue Prilosec for GI protection/GERD. BUN and SCr increased - BUN 50.0 and SCr 1.8. Baseline SCr 1.1. Urine sodium low at 18 and urine creatine 161.4 Initiate NS 125cc/hr for hydration and hold home losartan given renal injury. 02/20 Pain control is overall improving. Cellulitis/yeast dermatitis also reportedly improving. Asked nurses to start with 2 mg morphine rather than 4 mg d/t adverse effect ( transient confusion/tiredness). Continue Rocephin to complete a 7-day course - through 02/21/18 - for UTI and cellulitis. Continue vancomycin for C. difficile. Start probiotics. Leukocytosis improved to 12.1. JOSE C improving though creatinine is still above baseline at 1.5. Continue NS at 125 ml/hr. Oral intake is minimal. K low-normal at 3.6 - KDur ordered. Stool pos for occult blood and hgb has trended down from 11 to 8.8. Pt is asymptomatic. She's on eliquis for A-fib. Monitor at this time.
[2018-02-20] MEDS ORDERED: MORPHINE SULFATE 4mg INJECTION IVP PRN (16:07)
[2018-02-20] MEDS: SIMVASTATIN 20 MG TABLET PO SCH (20:18)
[2018-02-21] MEDS: VANCOMYCIN 250mg/5ml ORAL LIQ PO SCH ×4 (02:13→20:42)
[2018-02-21] MEDS: NS 1,000 ML IV SCH ×2 (03:57→16:42)
[2018-02-21] MEDS: OMEPRAZOLE 20 MG CAPSULE PO SCH ×2 (05:10→06:19)
[2018-02-21] MEDS: SOTALOL 80 MG TABLET PO SCH ×3 (05:10→16:26)
[2018-02-21] MEDS: FLUCONAZOLE 100 MG TABLET PO SCH (08:25)
[2018-02-21] MEDS: ALLOPURINOL 300 MG TABLET PO SCH (08:25)
[2018-02-21] MEDS: APIXABAN 5 MG TABLET PO SCH ×2 (08:26→20:42)
[2018-02-21] MEDS: AMLODIPINE 2.5 MG TABLET PO SCH (08:26)
[2018-02-21] MEDS: NYSTATIN OINTMENT 15gm TP SCH ×3 (08:27→20:46)
[2018-02-21] MEDS: CEFTRIAXONE 1 G in NS 100 ML IV SCH (10:12)
--- NOTE | 2018-02-21 13:01 | Progress Note ---
- Date 02/21/18 Subjective: Ora states that her pain is getting better. She has some abdominal cramping but it's limited to before having diarrhea. She's had several bouts of diarrhea already today. She's been unable to provide urine sample that is not contaminated with stool. She feels weak and tired but denies dizziness. No SOA. She states that she is drinking liquids much better but still has no appetite. She also reports feeling puffy in her legs and arms. Objective Vital signs: Temperature 98.4 F 02/21/18 08:18 Pulse Rate 60 02/21/18 09:00 Respiratory Rate 18 02/21/18 08:18 Blood Pressure 171/69 H 02/21/18 08:18 Pulse Oximetry 96 02/21/18 08:18 Height/Weight/BMI: Height 1.5 m Weight 102.5 kg Body Mass Index 41.8 - Constitutional Present: no acute distress, well nourished, well developed, morbidly obese - Routine HEENT Exam Head: Present: normocephalic Eye: Present: PERRL. Absent: conjunctival icterus, scleral injection Comments: white coating on tongue - Routine Respiratory Exam Present: CTA bilaterally - Routine Cardiovascular Exam Present: RRR, S1, S2 - Routine Abdominal Exam Present: soft, normoactive bowel sounds, non distended, non tender - Routine Extremities Exam Present: edema (trace to BLE; also edema noted to both hands/arms) - Routine Skin Exam Present: warm. Absent: pallor - Routine Neurological Exam Present: alert, oriented X3, CN II-XII intact, moving all extremities, vision grossly intact, hearing grossly intact, normal speech. Absent: sensory deficit , motor deficit, altered mental status, facial asymmetry - Routine Psychiatric Exam Present: normal affect, normal thought process, cooperative Results - Labs CBC & Chem 7: 02/21/18 05:18 02/21/18 05:18 Microbiology Results: Microbiology 02/13/18 16:37 Midline Blood Culture - Final No Growth After 5 Days 02/13/18 14:49 Peripheral/Iv Start Blood Culture - Final No Growth After 5 Days 02/13/18 17:56 Urine, Voided (Cc/notcc) Urine Culture - Final Klebsiella pneumoniae Proteus mirabilis Assessment and Plan (1) Vaginal candidiasis Current visit: Yes Status: Acute (2) Vulvar discomfort Current visit: Yes Status: Acute Assessment and Plan: Impression Vaginal candidiasis vs cellulitis Vulvar cellulitis - skin culture + for Group B strep UTI - Klebsiella pneumoniae Febrile process Diet controlled DM CHF - chronic A-fibrillation Chronic anticoagulation with Eliquis GERD FABIO Obesity Leukocytosis - 02/19/18. JOSE C - 02/19/18 C. difficile 02/19/18 Thrush 02/21 Renal function improving with BUN at 33 and cr 1.2. Weight increasing; increased peripheral edema. PO liquid intake improving. DC IVF. Urine eos pending. Hgb improved to 10.2. DC Rocephin; today completed a 7-day course for UTI and cellulitis. Continue vancomycin for C. difficile. Start probiotics. Leukocytosis improved to 10.7. Consider Questran use. Continue Diflucan for yeast. DVT Prophylaxis: Eliquis GI Prophylaxis: Omeprazole - Physician Narrative Physician: Mona Pisano MD Narrative: Date: 02/21/18 Time: 2119 I have independently evaluated and examined this patient. I reviewed the chart, the patient's history, and the LITIGATION PARTNER/PA's documented findings as above. We discussed and formulated the assessment and plan as above with additions as below: Ora reports ongoing liquid stools with some associated abdominal cramping but significant improvement in groin/pelvic pain. NAD, alert, abdomen benign. Check albumin with morning labs-caloric intake remained poor; patient encouraged to increase protein content of meals to help with management of edema. Discontinue telemetry. Hospital Course Summary Disclaimer: The visit summary below is not to be considered part of the above Progress Note. Hospital Course: 02/13/2018- Admission Admit patient outpatient observation under the care of Dr Armstrong. Will obtain CBC, BMP, Lactate, Procalconin, UA and blood culture for further medical evaluation. Will start nystatin ointment topically along with PO Diflucan 150mg daily. May consider starting antibiotic therapy if patient appears to have infectious process/SIRS criteria, leukocytosis, or fever. Monitor Accucheck PRN only as she is diet controlled only. Will need to review home medications once reconciled by nursing staff. SCD to bilateral lower ext for DVT PPX and continue Eliquis. She does wish to be a DNR and this order is written. At time of discharge medical care is to return to PCP Dr Bauer. 02/14/18 Urine growing Proteus and gram neg linette. With temp elevation this afternoon will start ceftriaxone for coverage. Continue oral Diflucan and topical Nystatin for dermatitis/candidiasis. Wound Team recommends: Use of unscented pH balanced cleanser at home, While at home no not wear briefs/leave area open to air, Continue with antifungal cream as prescribed. 02/15/18 UTI positive klebsiella and proteus mirabilis- sensitive to Rocephin Continue with oral Diflucan, topical nystatin ointment. Will also add nystatin powder to help with drying Continued recommendation by wound team Need to monitor for further fevers given. Patient did have a fever overnight. Labs have remained stable. Case discussed with case technician. Question possible home health once patient is more medically stable to help with hygiene and care 02/16/18 No fevers last night. Continue Rocephin for klebsiella UTI. Received vulvar skin culture results from - pos for group B strep, ceftriaxone should adequately cover. Continue Diflucan, nystatin. OT demonstrated use of assistive device for hygiene. Reconsidering Home Health - CM aware. 02/17/18 Afebrile; but increased pain today requiring IV morphine. 02/18/18 Continue to have pain with cleaning and romana-care. Requiring IV Morphine. Overall she feels that the discomfort is improving. Goal is use only PO pain mediations Today is day #5 of Rocephin for klebsiella UTI. Continue Diflucan, nystatin for candidiasis coverage. Noted Piping Designer up to 1.4. May need to consider holding Valsartan. 02/19 Ora continues to have significant pain with cleanings, though she reports its improving. Continue pain control, trying to optimize use of oral pain medications. Continue Rocephin for klebsiella UTI - day 5. Urine culture also revealed proteus mirabilis with sensitivity pending. New leukocytosis - WBC 14.1 with persistent occasional fevers. Blood cultures remain negative x 5 days. Frequent loose stools-C. difficile positive. Oral vancomycin initiated. Continue Diflucan, nystatin for candidiasis coverage Hemoglobin continues to trend down slowly. Will obtain fecal Hemoccult. Continue Prilosec for GI protection/GERD. BUN and SCr increased - BUN 50.0 and SCr 1.8. Baseline SCr 1.1. Urine sodium low at 18 and urine creatine 161.4 Initiate NS 125cc/hr for hydration and hold home losartan given renal injury. 02/20 Pain control is overall improving. Cellulitis/yeast dermatitis also reportedly improving. Asked nurses to start with 2 mg morphine rather than 4 mg d/t adverse effect ( transient confusion/tiredness). Continue Rocephin to complete a 7-day course - through 02/21/18 - for UTI and cellulitis. Continue vancomycin for C. difficile. Start probiotics. Leukocytosis improved to 12.1. JOSE C improving though creatinine is still above baseline at 1.5. Continue NS at 125 ml/hr. Oral intake is minimal. K low-normal at 3.6 - KDur ordered. Stool pos for occult blood and hgb has trended down from 11 to 8.8. Pt is asymptomatic. She's on eliquis for A-fib. Monitor at this time. 02/21 Renal function improving with BUN at 33 and cr 1.2. Weight increasing; increased peripheral edema. PO liquid intake improving. DC IVF. Urine eos pending. Hgb improved to 10.2. DC Rocephin; today completed a 7-day course for UTI and cellulitis. Continue vancomycin for C. difficile. Start probiotics. Leukocytosis improved to 10.7. Consider Questran use. Continue Diflucan for yeast.
[2018-02-21] MEDS: LACTOBACILLUS (15B cfu) CAPSULE PO SCH (16:33)
[2018-02-21] MEDS: SIMVASTATIN 20 MG TABLET PO SCH (20:42)
[2018-02-21] MEDS: SALINE FLUSH 10ml SYRINGE IVF PRN (20:42)
[2018-02-22] MEDS: VANCOMYCIN 250mg/5ml ORAL LIQ PO SCH ×4 (02:33→21:41)
[2018-02-22] MEDS: SOTALOL 80 MG TABLET PO SCH ×2 (07:31→16:57)
[2018-02-22] MEDS: OMEPRAZOLE 20 MG CAPSULE PO SCH (07:31)
[2018-02-22] MEDS: FLUCONAZOLE 100 MG TABLET PO SCH (08:59)
[2018-02-22] MEDS: LACTOBACILLUS (15B cfu) CAPSULE PO SCH ×3 (08:59→16:56)
[2018-02-22] MEDS: ALLOPURINOL 300 MG TABLET PO SCH (09:01)
[2018-02-22] MEDS: AMLODIPINE 2.5 MG TABLET PO SCH (09:01)
[2018-02-22] MEDS: APIXABAN 5 MG TABLET PO SCH ×2 (09:02→21:40)
[2018-02-22] MEDS: NYSTATIN OINTMENT 15gm TP SCH ×3 (09:03→21:40)
[2018-02-22] MEDS: SALINE FLUSH 10ml SYRINGE IVF PRN ×2 (09:03→21:40)
[2018-02-22] MEDS ORDERED: CHOLESTYRAMINE LIGHT 4 G PACKET PO PRN (10:08)
--- NOTE | 2018-02-22 12:14 | Progress Note ---
- Date 02/22/18 Subjective: Ora is seen today in follow-up. She is up in the chair. She appears somewhat weak and OT. She states that she is tired from having so many loose stools, he has had 4 reported loose stools over the past 12 hours. Overall peritoneal area is still irritated however better. Vital signs stable. Objective Vital signs: Temperature 97.4 F 02/22/18 07:00 Pulse Rate 68 02/22/18 07:31 Respiratory Rate 16 02/22/18 07:00 Blood Pressure 159/57 H 02/22/18 07:00 Pulse Oximetry 96 02/22/18 07:00 Height/Weight/BMI: Height 1.5 m Weight 103.9 kg Body Mass Index 41.8 - Constitutional Present: no acute distress, well nourished, well developed - Routine HEENT Exam Eye: Present: EOMI ENT: Present: mucous membranes moist, dentition normal - Routine Respiratory Exam Present: CTA bilaterally. Absent: wheezes - Routine Cardiovascular Exam Present: RRR, S1, S2. Absent: murmur - Routine Abdominal Exam Present: soft, normoactive bowel sounds, non distended. Absent: tenderness - Routine Skin Exam Present: intact, dry, warm - Routine Neurological Exam Present: alert, oriented X3, CN II-XII intact, moving all extremities - Routine Lymphatic Exam Lymphatic: Absent: adenopathy - Routine Psychiatric Exam Present: normal affect, cooperative Results - Labs CBC & Chem 7: 02/22/18 04:49 02/22/18 04:49 Microbiology Results: Microbiology 02/13/18 16:37 Midline Blood Culture - Final No Growth After 5 Days 02/13/18 14:49 Peripheral/Iv Start Blood Culture - Final No Growth After 5 Days 02/13/18 17:56 Urine, Voided (Cc/notcc) Urine Culture - Final Klebsiella pneumoniae Proteus mirabilis Assessment and Plan (1) Vaginal candidiasis Current visit: Yes Status: Acute (2) Vulvar discomfort Current visit: Yes Status: Acute Assessment and Plan: Impression Vaginal candidiasis vs cellulitis Vulvar cellulitis - skin culture + for Group B strep UTI - Klebsiella pneumoniae Febrile process Diet controlled DM CHF - chronic A-fibrillation Chronic anticoagulation with Eliquis GERD FABIO Obesity Leukocytosis - 02/19/18. JOSE C - 02/19/18 C. difficile 02/19/18 Thrush Plan Mild hypokalemia- will given a one time dose of PO potassium Continue on PO Vancomycin for tx of C-diff. Culturelle TID. Added scheduled Questran to help slow stools Continue Diflucan for yeast. Home Diovan remains on hold. Hgb stable at 9.2. Patti As renal function to baseline and BP elevated, will restart Diovan tomorrow. DVT Prophylaxis: Eliquis Resuscitation Status: Do Not Resuscitate - Time spent with patient Time with patient PN: 25 minutes - Physician Narrative Physician: Jer Armstrong MD Narrative: Date: 02/22/18 Time: 2015 Have independently interviewed and examined pt. Chart reviewed. Case discussed with CM and my ELECTRONICS ENGINEERING TECHNICIAN. Care plan developed with my supervision; agree with above. Rough day-frequent stools problematic. Slept poorly last night secondary. Did use Questran and helped to slow stools. Appetite decreased, nothing taste good and not feeling hungry. Strength decreased. Lungs: decreased, no distress CV: regular AB: soft nt/nd MSE: awake alert appropriate Plan: Oral Vancomycin for C diff-antibiotics stopped. Questran to help loose stools. Can restart Diovan as BP increased and renal status to baseline. Discussed at length with patient and her son. Hospital Course Summary Disclaimer: The visit summary below is not to be considered part of the above Progress Note. Hospital Course: 02/13/2018- Admission Admit patient outpatient observation under the care of Dr Armstrong. Will obtain CBC, BMP, Lactate, Procalconin, UA and blood culture for further medical evaluation. Will start nystatin ointment topically along with PO Diflucan 150mg daily. May consider starting antibiotic therapy if patient appears to have infectious process/SIRS criteria, leukocytosis, or fever. Monitor Accucheck PRN only as she is diet controlled only. Will need to review home medications once reconciled by nursing staff. SCD to bilateral lower ext for DVT PPX and continue Eliquis. She does wish to be a DNR and this order is written. At time of discharge medical care is to return to PCP Dr Bauer. 02/14/18 Urine growing Proteus and gram neg linette. With temp elevation this afternoon will start ceftriaxone for coverage. Continue oral Diflucan and topical Nystatin for dermatitis/candidiasis. Wound Team recommends: Use of unscented pH balanced cleanser at home, While at home no not wear briefs/leave area open to air, Continue with antifungal cream as prescribed. 02/15/18 UTI positive klebsiella and proteus mirabilis- sensitive to Rocephin Continue with oral Diflucan, topical nystatin ointment. Will also add nystatin powder to help with drying Continued recommendation by wound team Need to monitor for further fevers given. Patient did have a fever overnight. Labs have remained stable. Case discussed with pillowcase turner. Question possible home health once patient is more medically stable to help with hygiene and care 02/16/18 No fevers last night. Continue Rocephin for klebsiella UTI. Received vulvar skin culture results from [facility] - pos for group B strep, ceftriaxone should adequately cover. Continue Diflucan, nystatin. OT demonstrated use of assistive device for hygiene. Reconsidering Home Health - CM aware. 02/17/18 Afebrile; but increased pain today requiring IV morphine. 02/18/18 Continue to have pain with cleaning and romana-care. Requiring IV Morphine. Overall she feels that the discomfort is improving. Goal is use only PO pain mediations Today is day #5 of Rocephin for klebsiella UTI. Continue Diflucan, nystatin for candidiasis coverage. Noted Certified Pharmacy Technician up to 1.4. May need to consider holding Valsartan. 02/19/18 Ora continues to have significant pain with cleanings, though she reports its improving. Continue pain control, trying to optimize use of oral pain medications. Continue Rocephin for klebsiella UTI - day 5. Urine culture also revealed proteus mirabilis with sensitivity pending. New leukocytosis - WBC 14.1 with persistent occasional fevers. Blood cultures remain negative x 5 days. Frequent loose stools-C. difficile positive. Oral vancomycin initiated. Continue Diflucan, nystatin for candidiasis coverage. Hemoglobin continues to trend down slowly. Will obtain fecal Hemoccult. Continue Prilosec for GI protection/GERD. BUN and SCr increased - BUN 50.0 and SCr 1.8. Baseline SCr 1.1. Urine sodium low at 18 and urine creatine 161.4 Initiate NS 125cc/hr for hydration and hold home losartan given renal injury. 02/20/18 Pain control is overall improving. Cellulitis/yeast dermatitis also reportedly improving. Asked nurses to start with 2 mg morphine rather than 4 mg d/t adverse effect ( transient confusion/tiredness). Continue Rocephin to complete a 7-day course - through 02/21/18 - for UTI and cellulitis. Continue vancomycin for C. difficile. Start probiotics. Leukocytosis improved to 12.1. JOSE C improving though creatinine is still above baseline at 1.5. Continue NS at 125 ml/hr. Oral intake is minimal. K low-normal at 3.6 - KDur ordered. Stool pos for occult blood and hgb has trended down from 11 to 8.8. Pt is asymptomatic. She's on eliquis for A-fib. Monitor at this time. 02/21/18 Renal function improving with BUN at 33 and cr 1.2. Weight increasing; increased peripheral edema. PO liquid intake improving. DC IVF. Urine eos pending. Hgb improved to 10.2. DC Rocephin; today completed a 7-day course for UTI and cellulitis. Continue vancomycin for C. difficile. Start probiotics. Leukocytosis improved to 10.7. Consider Questran use. Continue Diflucan for yeast. 02/22/18 Mild hypokalemia- will given a one time dose of PO potassium Continue on PO Vancomycin for tx of C-diff. Culturelle TID. Added scheduled Questran to help slow stools Continue Diflucan for yeast. Home Diovan remains on hold. As renal function to baseline and BP elevated, will restart Diovan tomorrow. Hgb stable at 9.2.
[2018-02-22] MEDS: CHOLESTYRAMINE LIGHT 4 G PACKET PO SCH ×2 (12:20→18:25)
[2018-02-22] MEDS: SIMVASTATIN 20 MG TABLET PO SCH (21:41)
[2018-02-23] MEDS: CHOLESTYRAMINE LIGHT 4 G PACKET PO SCH ×4 (00:36→18:50)
[2018-02-23] MEDS: VANCOMYCIN 250mg/5ml ORAL LIQ PO SCH ×4 (04:30→21:06)
[2018-02-23] MEDS: SOTALOL 80 MG TABLET PO SCH ×2 (05:37→17:03)
[2018-02-23] MEDS: OMEPRAZOLE 20 MG CAPSULE PO SCH (05:37)
[2018-02-23] MEDS: SALINE FLUSH 10ml SYRINGE IVF PRN (05:37)
[2018-02-23] MEDS: FLUCONAZOLE 100 MG TABLET PO SCH (08:05)
[2018-02-23] MEDS: APIXABAN 5 MG TABLET PO SCH ×2 (08:06→21:05)
[2018-02-23] MEDS: ALLOPURINOL 300 MG TABLET PO SCH (08:06)
[2018-02-23] MEDS: AMLODIPINE 2.5 MG TABLET PO SCH (08:06)
[2018-02-23] MEDS: LACTOBACILLUS (15B cfu) CAPSULE PO SCH ×3 (08:06→17:03)
[2018-02-23] MEDS: NYSTATIN OINTMENT 15gm TP SCH ×3 (08:07→22:00)
[2018-02-23] MEDS: Valsartan 160 MG TABLET PO SCH (08:08)
--- NOTE | 2018-02-23 13:08 | Progress Note ---
- Date 02/23/18 Subjective: Ora is seen today in follow up. She is up in chair. Feeling a bit better. Still some intermittent abdominal discomfort. Diarrhea is slowing down per her report. She is eating ok. She reports that she is feeling more edematous than usual. No new SOA. She did have a low-grade temp last night of 100.1, so we will need to monitor her overnight before we consider dismissal. She is in agreement with plan of care. Objective Vital signs: Temperature 97.6 F 02/23/18 07:00 Pulse Rate 62 02/23/18 07:00 Respiratory Rate 16 02/23/18 07:00 Blood Pressure 162/66 H 02/23/18 07:00 Pulse Oximetry 95 02/23/18 07:00 Height/Weight/BMI: Height 1.5 m Weight 104.2 kg Body Mass Index 41.8 - Constitutional Present: no acute distress, morbidly obese, cooperative - Routine HEENT Exam Head: Present: normocephalic, atraumatic Eye: Present: EOMI, PERRL ENT: Present: mucous membranes moist - Routine Respiratory Exam Present: CTA bilaterally, diminished air movement. Absent: dyspnea, rhonchi, wheezes - Routine Cardiovascular Exam Present: RRR, S1, S2 - Routine Abdominal Exam Present: soft, normoactive bowel sounds, distended (mild vs obese) - Routine Extremities Exam Present: edema (Chronic pitting LE edema), non tender - Routine Musculoskeletal Exam Musculoskeletal: Present: moving extremities well - Routine Skin Exam Present: intact, dry, warm - Routine Neurological Exam Present: alert, oriented X3, moving all extremities - Routine Psychiatric Exam Present: normal affect, cooperative, good insight, good judgment Results - Labs CBC & Chem 7: 02/23/18 05:05 02/23/18 05:05 Microbiology Results: Microbiology 02/13/18 16:37 Midline Blood Culture - Final No Growth After 5 Days 02/13/18 14:49 Peripheral/Iv Start Blood Culture - Final No Growth After 5 Days 02/13/18 17:56 Urine, Voided (Cc/notcc) Urine Culture - Final Klebsiella pneumoniae Proteus mirabilis Assessment and Plan (1) Vaginal candidiasis Current visit: Yes Status: Acute (2) Vulvar discomfort Current visit: Yes Status: Acute Assessment and Plan: Impression Vaginal candidiasis vs cellulitis Vulvar cellulitis - skin culture + for Group B strep UTI - Klebsiella pneumoniae Febrile process Diet controlled DM CHF - chronic A-fibrillation Chronic anticoagulation with Eliquis GERD FABIO Obesity Leukocytosis - 02/19/18. JOSE C - 02/19/18 C. difficile 02/19/18 Thrush Plan 02/23/18 Slow improvement. Getting closer to discharge, but need to continue to observe given temp overnoc. Continue PO Vanco x 10 days- (D#5). May need to extend depending on clinical exam and vitals. Continue PO diflucan for multiple fungal infection issues. Monitor LFTs. S/P Ceftriaxone for UTI. She appears quite fluid up. Will start IV Lasix and PO KCL replacement. Monitor weights. Possible DC tomorrow depending on how she is feeling. Diovan resumed, monitor kidney function. DVT Prophylaxis: Eliquis GI Prophylaxis: Omeprazole Resuscitation Status: Do Not Resuscitate - Time spent with patient Time with patient PN: 25 minutes - Physician Narrative Physician: Jer Armstrong MD Narrative: Date: 02/23/18 Time: 1305 Have independently interviewed and examined pt. Chart reviewed. Case discussed with CM and my PAVING FOREMAN. Care plan developed with my supervision; agree with above. Doing fair. Stools still loose/frequent, but slowing slightly. Appetite with slight increase today. Needs help getting around. Breathing well. Lungs: decreased, no distress CV: regular MSE: awake alert appropriate Plan: Continue care. Lasix started IV; with continued increase stool output and decreased oral drive need to stop as will place patient at increased risk for volume collapse. Hospital Course Summary Disclaimer: The visit summary below is not to be considered part of the above Progress Note. Hospital Course: 02/13/2018- Admission Admit patient outpatient observation under the care of Dr Armstrong. Will obtain CBC, BMP, Lactate, Procalconin, UA and blood culture for further medical evaluation. Will start nystatin ointment topically along with PO Diflucan 150mg daily. May consider starting antibiotic therapy if patient appears to have infectious process/SIRS criteria, leukocytosis, or fever. Monitor Accucheck PRN only as she is diet controlled only. Will need to review home medications once reconciled by nursing staff. SCD to bilateral lower ext for DVT PPX and continue Eliquis. She does wish to be a DNR and this order is written. At time of discharge medical care is to return to PCP Dr Bauer. 02/14/18 Urine growing Proteus and gram neg linette. With temp elevation this afternoon will start ceftriaxone for coverage. Continue oral Diflucan and topical Nystatin for dermatitis/candidiasis. Wound Team recommends: Use of unscented pH balanced cleanser at home, While at home no not wear briefs/leave area open to air, Continue with antifungal cream as prescribed. 02/15/18 UTI positive klebsiella and proteus mirabilis- sensitive to Rocephin Continue with oral Diflucan, topical nystatin ointment. Will also add nystatin powder to help with drying Continued recommendation by wound team Need to monitor for further fevers given. Patient did have a fever overnight. Labs have remained stable. Case discussed with home health care case manager. Question possible home health once patient is more medically stable to help with hygiene and care 02/16/18 No fevers last night. Continue Rocephin for klebsiella UTI. Received vulvar skin culture results from [facility] - pos for group B strep, ceftriaxone should adequately cover. Continue Diflucan, nystatin. OT demonstrated use of assistive device for hygiene. Reconsidering Home Health - CM aware. 02/17/18 Afebrile; but increased pain today requiring IV morphine. 02/18/18 Continue to have pain with cleaning and romana-care. Requiring IV Morphine. Overall she feels that the discomfort is improving. Goal is use only PO pain mediations Today is day #5 of Rocephin for klebsiella UTI. Continue Diflucan, nystatin for candidiasis coverage. Noted Rn Transitional Care up to 1.4. May need to consider holding Valsartan. 02/19/18 Ora continues to have significant pain with cleanings, though she reports its improving. Continue pain control, trying to optimize use of oral pain medications. Continue Rocephin for klebsiella UTI - day 5. Urine culture also revealed proteus mirabilis with sensitivity pending. New leukocytosis - WBC 14.1 with persistent occasional fevers. Blood cultures remain negative x 5 days. Frequent loose stools-C. difficile positive. Oral vancomycin initiated. Continue Diflucan, nystatin for candidiasis coverage. Hemoglobin continues to trend down slowly. Will obtain fecal Hemoccult. Continue Prilosec for GI protection/GERD. BUN and SCr increased - BUN 50.0 and SCr 1.8. Baseline SCr 1.1. Urine sodium low at 18 and urine creatine 161.4 Initiate NS 125cc/hr for hydration and hold home losartan given renal injury. 02/20/18 Pain control is overall improving. Cellulitis/yeast dermatitis also reportedly improving. Asked nurses to start with 2 mg morphine rather than 4 mg d/t adverse effect ( transient confusion/tiredness). Continue Rocephin to complete a 7-day course - through 02/21/18 - for UTI and cellulitis. Continue vancomycin for C. difficile. Start probiotics. Leukocytosis improved to 12.1. JOSE C improving though creatinine is still above baseline at 1.5. Continue NS at 125 ml/hr. Oral intake is minimal. K low-normal at 3.6 - KDur ordered. Stool pos for occult blood and hgb has trended down from 11 to 8.8. Pt is asymptomatic. She's on eliquis for A-fib. Monitor at this time. 02/21/18 Renal function improving with BUN at 33 and cr 1.2. Weight increasing; increased peripheral edema. PO liquid intake improving. DC IVF. Urine eos pending. Hgb improved to 10.2. DC Rocephin; today completed a 7-day course for UTI and cellulitis. Continue vancomycin for C. difficile. Start probiotics. Leukocytosis improved to 10.7. Consider Questran use. Continue Diflucan for yeast. 02/22/18 Mild hypokalemia- will given a one time dose of PO potassium Continue on PO Vancomycin for tx of C-diff. Culturelle TID. Added scheduled Questran to help slow stools Continue Diflucan for yeast. Home Diovan remains on hold. As renal function to baseline and BP elevated, will restart Diovan tomorrow. Hgb stable at 9.2. 02/23/18 Slow improvement. Getting closer to discharge, but need to continue to observe given temp overnight. Continue PO Vanco x 10 days- (D#5). May need to extend depending on clinical exam and vitals. Continue PO Diflucan for multiple fungal infection issues. Monitor LFTs. She appears quite fluid up. Will start IV Lasix and PO KCL replacement. Monitor weights. Possible DC tomorrow depending on how she is feeling. Diovan resumed, monitor kidney function.
[2018-02-23] MEDS ORDERED: FUROSEMIDE 40 MG/4 ML INJECTION IVP SCH (13:15)
[2018-02-23] MEDS: ACETAMINOPHEN 325 MG TABLET PO PRN (14:15)
[2018-02-23] MEDS: SIMVASTATIN 20 MG TABLET PO SCH (21:06)
[2018-02-23 23:27] VITALS: O2SAT 97
[2018-02-24] MEDS: CHOLESTYRAMINE LIGHT 4 G PACKET PO SCH ×3 (00:50→11:22)
[2018-02-24] MEDS: VANCOMYCIN 250mg/5ml ORAL LIQ PO SCH ×2 (03:23→09:02)
[2018-02-24] MEDS: SALINE FLUSH 10ml SYRINGE IVF PRN ×2 (05:01→11:22)
[2018-02-24] MEDS: SOTALOL 80 MG TABLET PO SCH (06:51)
[2018-02-24] MEDS: OMEPRAZOLE 20 MG CAPSULE PO SCH (06:52)
[2018-02-24 07:18] VITALS: BP 168/67; PULSE 68; RESP 16; TEMP 96.6
[2018-02-24] MEDS: LACTOBACILLUS (15B cfu) CAPSULE PO SCH ×2 (09:02→11:22)
[2018-02-24] MEDS: FLUCONAZOLE 100 MG TABLET PO SCH (09:02)
[2018-02-24] MEDS: Valsartan 160 MG TABLET PO SCH (09:02)
[2018-02-24] MEDS: AMLODIPINE 2.5 MG TABLET PO SCH (09:03)
[2018-02-24] MEDS: ALLOPURINOL 300 MG TABLET PO SCH (09:03)
[2018-02-24] MEDS: APIXABAN 5 MG TABLET PO SCH (09:03)
[2018-02-24] MEDS: NYSTATIN OINTMENT 15gm TP SCH ×2 (09:04→14:30)
[2018-02-24] MEDS ORDERED: MAGNESIUM SULFATE 1gm PREMIX 1 GM/100 ML BAG IV ONE (10:30)
--- NOTE | 2018-02-24 11:27 | Extended Care Facility Orders ---
Admission Orders Admit to:: Alf Allergies/Adverse Reactions: Allergies oxycodone Allergy (Severe, Verified 01/06/18 11:19) Unresponsive sulfamethoxazole Allergy (Intermediate, Verified 01/06/18 11:19) Blister Penicillins Allergy (Mild, Verified 05/27/14 09:20) RASH Admitting Diagnosis: Cellulitis,vaginal yeast infection, C. difficile Admitting Physician: Jer Armstrong MD Attending Physician: Jer Armstrong MD Code Status: Do Not Resuscitate Anticiapted Length of Stay: 30 days or less Rehab Potential: good Rehab Prognosis: good Diet: 02/13/18 Dinner Regular Diet [DIET] Diet Modifications: May use Facility Protocol or Standing Orders: Yes May have flu vaccine: Yes Evaluations/Treatment: PT, OT Alf Certification: I certify that SNF services are required to be given on an Inpatient basis because of the patients need for detention care on a continuing basis for the condition(s) for which he/she received inpatient hospital services prior to his/her transfer to the SNF. SNF inpatient care is necessary for the following reasons Indication for Alf: Other (PT,OT) - Additional Information In Event of Arrest: Do Not Start CPR Referrals: Mateus Guallpa MD [Primary Care Provider] - (Please schedule follow-up appointment for one week)
--- NOTE | 2018-02-24 11:55 | Discharge Summary ---
Discharge Information Date of admission: 02/16/18 14:25 Attending Physician: Jer Armstrong MD Primary care physician: Mateus Guallpa MD Consults: None - Discharge Diagnosis (1) Vaginal candidiasis Status: Acute (2) Vulvar discomfort Status: Acute Discharge diagnosis Vulvar cellulitis - Fungal and Group B strep Associated conditions and complications Vaginal candidiasis vs cellulitis UTI - Klebsiella pneumoniae Febrile process Diet controlled DM CHF - chronic A-fibrillation Chronic anticoagulation with Eliquis GERD FABIO Obesity Leukocytosis - 02/19/18. JOSE C - 02/19/18 C. difficile 02/19/18 Thrush - Procedures Procedures: None - Laboratory Labs: 02/24/18 04:55 02/24/18 04:55 - Microbiology Microbiology 02/13/18 16:37 Midline Blood Culture - Final No Growth After 5 Days 02/13/18 14:49 Peripheral/Iv Start Blood Culture - Final No Growth After 5 Days 02/13/18 17:56 Urine, Voided (Cc/notcc) Urine Culture - Final Klebsiella pneumoniae Proteus mirabilis - Radiology Radiology: None - Pathology None History of Present Illness HPI: Ora is a 82 yr old female who is known to the hospitalist services from previous admissions. She was recently admitted last month to the hospitalist service with abdominal cellulitis. She was discharge home and has done good since that time. She has been active and is going to [employer] daily for walking and water aerobics. She noticed this past that she had vaginal itching. She began to use topical cream and Vaseline however symptoms worsened. On Sunday 02/11 the itching worsened and spread to entire vulvar area radiating back to rectum and onto lower perineurium. Today she went to see her PCP Dr Shun Bauer for evaluation. He was concerned about the extent of the erythema and irritation that he contacted the hospitalist for outpatient admission. She reports fever of 101 while at the clinic today. For complete details of the H&P refer to that document. Objective Vital signs: Temperature 96.6 F L 02/24/18 07:12 Pulse Rate 68 02/24/18 07:12 Respiratory Rate 16 02/24/18 07:12 Blood Pressure 168/67 H 02/24/18 07:12 Pulse Oximetry 97 02/24/18 07:12 Height/Weight/BMI: Height 1.5 m Weight 103.4 kg Body Mass Index 41.8 - Constitutional Present: no acute distress, well nourished, well developed - Routine HEENT Exam Eye: Present: EOMI ENT: Present: mucous membranes moist, dentition normal - Routine Respiratory Exam Present: CTA bilaterally. Absent: wheezes - Routine Cardiovascular Exam Present: RRR, S1, S2. Absent: murmur - Routine Abdominal Exam Present: soft, normoactive bowel sounds, non distended. Absent: tenderness - Routine Extremities Exam Present: edema (BLE), normal capillary refill - Routine Skin Exam Present: dry, warm - Routine Neurological Exam Present: alert, oriented X3, CN II-XII intact - Routine Lymphatic Exam Lymphatic: Absent: adenopathy - Routine Psychiatric Exam Present: normal affect Hospital Course This is a general summary of the patient's hospital course. For more details refer to the complete medical record. Hospital course: 02/13/2018- Admission Admit patient outpatient observation under the care of Dr Armstrong. Will obtain CBC, BMP, Lactate, Procalconin, UA and blood culture for further medical evaluation. Will start nystatin ointment topically along with PO Diflucan 150mg daily. May consider starting antibiotic therapy if patient appears to have infectious process/SIRS criteria, leukocytosis, or fever. Monitor Accucheck PRN only as she is diet controlled only. Will need to review home medications once reconciled by nursing staff. SCD to bilateral lower ext for DVT PPX and continue Eliquis. She does wish to be a DNR and this order is written. At time of discharge medical care is to return to PCP Dr Bauer. 02/14/18 Urine growing Proteus and gram neg linette. With temp elevation this afternoon will start ceftriaxone for coverage. Continue oral Diflucan and topical Nystatin for dermatitis/candidiasis. Wound Team recommends: Use of unscented pH balanced cleanser at home, While at home no not wear briefs/leave area open to air, Continue with antifungal cream as prescribed. 02/15/18 UTI positive klebsiella and proteus mirabilis- sensitive to Rocephin Continue with oral Diflucan, topical nystatin ointment. Will also add nystatin powder to help with drying Continued recommendation by wound team Need to monitor for further fevers given. Patient did have a fever overnight. Labs have remained stable. Case discussed with casework supervisor. Question possible home health once patient is more medically stable to help with hygiene and care 02/16/18 No fevers last night. Continue Rocephin for klebsiella UTI. Received vulvar skin culture results from - pos for group B strep, ceftriaxone should adequately cover. Continue Diflucan, nystatin. OT demonstrated use of assistive device for hygiene. Reconsidering Home Health - CM aware. 02/17/18 Afebrile; but increased pain today requiring IV morphine. 02/18/18 Continue to have pain with cleaning and romana-care. Requiring IV Morphine. Overall she feels that the discomfort is improving. Goal is use only PO pain mediations Today is day #5 of Rocephin for klebsiella UTI. Continue Diflucan, nystatin for candidiasis coverage. Noted Welfare Service Aide up to 1.4. May need to consider holding Valsartan. 02/19/18 Ora continues to have significant pain with cleanings, though she reports its improving. Continue pain control, trying to optimize use of oral pain medications. Continue Rocephin for klebsiella UTI - day 5. Urine culture also revealed proteus mirabilis with sensitivity pending. New leukocytosis - WBC 14.1 with persistent occasional fevers. Blood cultures remain negative x 5 days. Frequent loose stools-C. difficile positive. Oral vancomycin initiated. Continue Diflucan, nystatin for candidiasis coverage. Hemoglobin continues to trend down slowly. Will obtain fecal Hemoccult. Continue Prilosec for GI protection/GERD. BUN and SCr increased - BUN 50.0 and SCr 1.8. Baseline SCr 1.1. Urine sodium low at 18 and urine creatine 161.4 Initiate NS 125cc/hr for hydration and hold home losartan given renal injury. 02/20/18 Pain control is overall improving. Cellulitis/yeast dermatitis also reportedly improving. Asked nurses to start with 2 mg morphine rather than 4 mg d/t adverse effect ( transient confusion/tiredness). Continue Rocephin to complete a 7-day course - through 02/21/18 - for UTI and cellulitis. Continue vancomycin for C. difficile. Start probiotics. Leukocytosis improved to 12.1. JOSE C improving though creatinine is still above baseline at 1.5. Continue NS at 125 ml/hr. Oral intake is minimal. K low-normal at 3.6 - KDur ordered. Stool pos for occult blood and hgb has trended down from 11 to 8.8. Pt is asymptomatic. She's on eliquis for A-fib. Monitor at this time. 02/21/18 Renal function improving with BUN at 33 and cr 1.2. Weight increasing; increased peripheral edema. PO liquid intake improving. DC IVF. Urine eos pending. Hgb improved to 10.2. DC Rocephin; today completed a 7-day course for UTI and cellulitis. Continue vancomycin for C. difficile. Start probiotics. Leukocytosis improved to 10.7. Consider Questran use. Continue Diflucan for yeast. 02/22/18 Mild hypokalemia- will given a one time dose of PO potassium Continue on PO Vancomycin for tx of C-diff. Culturelle TID. Added scheduled Questran to help slow stools Continue Diflucan for yeast. Home Diovan remains on hold. As renal function to baseline and BP elevated, will restart Diovan tomorrow. Hgb stable at 9.2. 02/23/18 Slow improvement. Getting closer to discharge, but need to continue to observe given temp overnight. Continue PO Vanco x 10 days- (D#5). May need to extend depending on clinical exam and vitals. Continue PO Diflucan for multiple fungal infection issues. Monitor LFTs. She appears quite fluid up. Will start IV Lasix and PO KCL replacement. Monitor weights. Possible DC tomorrow depending on how she is feeling. Diovan resumed, monitor kidney function. 02/24/18 - Discharge Ora is seen and examined prior to discharge. Overall she is feeling better. She reports stools have now been performed. Denies having abdominal pain, shortness of breath or chest pain. Continues to have some mild vaginal discomfort. However, overall this is better. She is planning to be discharged to [facility] for skilled rehabilitation. Continue oral vancomycin for 8 additional days for treatment of C. difficile. We'll continue with nystatin ointment as well as powder 3 times a day. Continue with Culturelle regularly. Would like her to utilize RAE hose to bilateral lower extremities during the daytime to help with peripheral edema. She will follow up with primary care provider, Dr. Bauer in 1 week. She is encouraged to work with PT and OT as her goal is to return home independently. Time spent with patient: discharge greater than 30 minutes Resuscitation Status: Do Not Resuscitate Discharge Plan - Discharge Disposition Discharge Date: 02/24/18 Disposition: 03 To SNU Not [facility] (SNF) *Condition: Stable Reason For Visit (Visit label in EMR): Cellulitis,vaginal yeast infection, C. difficile - Discharge Medications *Discharge Medications: New Acetaminophen [Tylenol] 325 - 650 mg PO Q5H PRN tab PRN Reason: Discomfort Cholestyramine/Aspartame [Cholestyramine Light Packet] 4 g PO Q6H powd.pack Hydrocodone/APAP 5/325 [[place] 5/325] 1 - 2 tab PO Q4H PRN #20 tab PRN Reason: Pain Nystatin Ointment [Mycostatin] 1 applicatio TP TID tube Nystatin Powder [Mycostatin] 1 applicatio TP TID bottle Vancomycin Oral Liq 125 mg PO Q6HR 8 Days po.syringe Acidoph/L.bulg/Bif.b/S.thermop [Bacid Caplet] 2 cap PO TIDWM tab Continue Garlic [Garlic Oil] 2,000 mg PO DAILY #0 Calcium Carbonate 1 tab PO DAILY #0 Valsartan [Diovan] 320 tab PO DAILY #0 tab Simvastatin 20 mg PO HS CloNIDine [Catapres] 1 tab PO BID Amlodipine Besylate [Norvasc] 2.5 mg PO DAILY Cranberry Fruit [Cranberry] 500 mg PO DAILY Apixaban [Eliquis] 5 mg PO BID Multi-Vitamin + Mineral [Therapeutic - M] 1 tab PO DAILY #0 Omeprazole 40 mg PO DAILY #0 Zinc Amino Acid Chelate [Zinc] 50 mg PO DAILY #0 Allopurinol [Zyloprim] 150 mg PO DAILY [place]-3/Dha/Epa/Fish Oil [Fish Oil 1,000 mg Softgel] 2,000 mg PO DAILY Sotalol HCl [Betapace] 80 mg PO ACBID Discontinued Nystatin Powder [Mycostatin] 1 applicatio TP BID #1 bottle - Discharge Packet/Instructions *Diet: Regular *Activity: Activity as tolerated *Pain Management/Treatment: [place] as needed for severe pain *Wound Care: None Additional Instructions: Continue oral vancomycin for treatment of C. difficile for 8 days. Use nystatin ointment and powder to peritoneal area 3 times a day. Questran Powder every 6 hours to help with loose stools *Expected Signs/Symptoms: Continue improvement in symptoms *Notify Physician if: Fever, chills, abdominal pain, vomiting, or other concerning symptoms *During Business Hours Contact: Dr. Guallpa *After Business Hours Contact: Dr. Guallpa or on-call physician *Pending Lab/Results: No Pending Lab - Referrals/Follow Up *Referrals/Follow Up: Mateus Guallpa MD [Primary Care Provider] - (Please schedule follow-up appointment for one week) - Patient Handouts Patient Handouts: Cellulitis (DC) - Dismissal Complete Discharge Instructions are:: Complete Physician Narrative - Narrative Physician: Jer Armstrong MD Attestation Narrative: Date: 02/24/18 Time: 1300 Have independently interviewed and examined pt. Chart reviewed. Case discussed with CM and my RECHECKER. Care plan developed with my supervision; agree with above. Doing a bit better. Stools starting to from. Less frequent. Appetite with decrease. Breathing stable. No f/c. Lungs: decreased bilaterally CV: regular AB: soft nt/nd MSE: awake alert appropriate Plan: Will discharge for skilled care. Medically stable. See orders for details.
== END 2018-02-24 15:00 | DRG 603 ==
LOC: MED → SUATTDRO 14:25
PROVIDERS: ADMIT Hospitalist; ATTEND Hospitalist

== ENCOUNTER 2018-03-23 16:20 | Inpatient (IN) ==
--- OUTSIDE RECORDS SUMMARY | 2018-03-23 16:27 | External Medical Summary | Referral Summary ---
:1935 Author Organization [facility] [address] [place] [address] Care Team Providers Name Role Phone Jerome Jose Ryne Primary Care Physician Encounter VC Date(s): 02/16/17 - 02/16/17 [facility] [address] [place] [phone] [place] Discharge Diagnosis: Hyperlipidemia Discharge Diagnosis: GOUT Discharge Diagnosis: Hypertension Discharge Diagnosis: Atrial fibrillation, currently in sinus rhythm Discharge Diagnosis: Diabetes Discharge Diagnosis: Intertrigo Discharge Diagnosis: History of recurrent UTIs Discharge Disposition: 01-Home or Self Care Attending Physician: Luna Maldonado PA-C Admitting Physician: Luna Maldonado PA-C Vital Signs Most recent to oldest [Reference Range]: 1 Temperature Tympanic [36.6-38.1 degC] 36.1 degC *LOW* (02/16/17 1:29 PM) Peripheral Pulse Rate [60-100 bpm] 89 bpm (02/16/17 1:29 PM) Blood Pressure [90-140/60-90 mmHg] 140/72 mmHg (02/16/17 1:29 PM) SpO2 93 % (02/16/17 1:29 PM) Problem List Condition Effective Dates Status Health Status Informant Atrial fibrillation, currently in Active sinus rhythm(Confirmed) Bronchitis(Confirmed) Active Chicken pox(Confirmed) Active CONSTIPATION(Confirmed) Active Diabetes(Confirmed) Active Ear infections(Confirmed) Active GOUT(Confirmed) Active Headaches(Confirmed) Active History of recurrent UTIs(Confirmed) Active Hyperlipidemia(Confirmed) Active Hypertension(Confirmed) Active Insomnia(Confirmed) Active Intertrigo(Confirmed) Active Migraine headache(Confirmed) Active Osteoarthritis(Confirmed) Active Otitis media(Confirmed) Active Overweight(Confirmed) Active Pneumonia(Confirmed) Active Polyuria(Confirmed) Active Allergies, Adverse Reactions, Alerts Substance Reaction Severity Status Macrobid Hives Active penicillin Hives Active Medications allopurinol 300 mg oral tablet See Instructions, TAKE ONE TABLET BY MOUTH DAILY, # 90 tabs, eRx: [facility] #[id number] Start Date: 01/18/17 Status: OrderedamLODIPine 2.5 mg oral tablet 2.5 mg 1 tabs, Oral, Daily, # 30 tabs, 0 Refill(s) Start Date: 04/20/16 Status: OrderedCalcium 500+D 1 tabs, Oral, Daily, 0 Refill(s) Start Date: 04/20/16 Status: OrderedcloNIDine 0.2 mg oral tablet 0.2 mg 1 tabs, Oral, BID, # 60 tabs, 0 Refill(s) Start Date: 04/20/16 Status: Orderedclotrimazole-betamethasone 1%-0.05% topical cream 1 chayo, Topical, BID, LAST FILL. PT. NEEDS AN APPT., # 45 g, 0 Refill(s), Pharmacy: [facility] #[id number] Start Date: 12/07/16 Status: OrderedCoumadin 5 mg oral tablet See Instructions, 1 tabs Oral Mon/Wed/Fri and alternating with 4mg tabs, # 30 tabs, 2 Refill(s), Pharmacy: [facility] #[id number], 1 tabs Oral Mon/Wed/Fri and alternating with 4mg tabs Start Date: 11/22/16 Status: Orderedcranberry oral tablet, chewable 0 Refill(s) Start Date: 02/16/17 Status: OrderedDiovan HCT 320 mg-12.5 mg oral tablet 1 tabs, Oral, Daily, # 30 tabs, 0 Refill(s) Start Date: 09/30/15 Status: OrderedFish Oil 1000 mg oral capsule 3 caps, Oral, Daily, 0 Refill(s) Start Date: 04/29/14 Status: Orderedgarlic 60 mg, Oral, Daily, 0 Refill(s) Start Date: 04/20/16 Status: Orderedmultivitamin 1 tabs, Oral, Daily, 0 Refill(s) Start Date: 04/29/14 Status: OrderedNorco 7.5 mg-325 mg oral tablet 1-2 tabs, Oral, q4hr, as needed for pain, Every 4-6 hours as needed for pain, # 60 tabs, 0 Refill(s) Start Date: 11/07/15 Status: Orderedomeprazole 40 mg oral delayed release capsule See Instructions, TAKE ONE CAPSULE BY MOUTH DAILY, # 90 caps, eRx: [facility] #[id number] Start Date: 01/18/17 Status: Orderedsimvastatin 20 mg oral tablet 20 mg 1 tabs, Oral, Bedtime (once a day), # 30 tabs, 0 Refill(s) Start Date: 04/20/16 Status: Orderedsotalol 80 mg oral tablet 80 mg 1 tabs, Oral, BID, # 90 tabs, 1 Refill(s), eRx: [facility] #[id number], TAKE ONE-HALF TABLETBY MOUTH TWICE A DAY FOR 90 DAYS . NEEDS APPOINTMENT FOR ADDITIONAL REFILLS-DUE IN NOVEMBER Start Date: 02/11/15 Status: OrderedVitamin C 500 mg oral tablet 1 tabs, Oral, Daily, # 30 tabs, 0 Refill(s) Start Date: 04/29/14 Status: Orderedwarfarin 4 mg oral tablet See Instructions, TAKE ONE TABLET BY MOUTH Sun/mon/tu/thurs/fri/Sat, # 24 tabs , 0 Refill(s), Pharmacy: [facility] #[id number], TAKE ONE TABLET BY MOUTH Sun/ mon/tu/th/fri/Sat Start Date: 11/09/16 Status: OrderedZinc 50 mg, Oral, Daily Start Date: 05/03/14 Status: Ordered Results Coagulation Most recent to oldest [Reference Range]: 1 PT Venous (02/16/17 2:23 PM) INR [0.8-1.2] 3.0 1 *HI* (02/16/17 2:23 PM) 1Result Comment: Normal (no anticoagulant): 0.8 - 1.2 Units Routine Therapeutic Range: 2.0 - 3.0 Units High Risk Therapeutic Range: 2.5 - 3.5 Units Immunizations Given and Recorded Vaccine Date Status Refusal Reason tetanus-diphth toxoids (Td) adult/adol 11/30/12 Given Procedures Procedure Date Related Diagnosis Body Site Colonoscopy1 02/12/10 Hemorrhoidectomy by stapling 02/12/10 Knee replacement Left 2005 Appendectomy Bilateral Carpal tunnel Cataract extraction status of left eye Cataract extraction status of right eye Cholecystectomy Flex sig2 Hysterectomy 1Multiple polypectomies. Tubular adenomas x6. Hyperplastic x1. Plan repeat in 1 year (02/12/2011) . Letter set up.[id number]'s Social History Social History Type Response Smoking Status Never smoker Assessment and Plan No data available for this section
--- OUTSIDE RECORDS SUMMARY | 2018-03-23 16:27 | External Medical Summary | Referral Summary ---
:1935 Author Organization [facility] [address] [place] [address] Care Team Providers Name Role Phone Mateus Guallpa Primary Care Physician Encounter VC Date(s): 06/03/17 - 06/03/17 [facility] [address] [place] [phone] [place] Discharge Diagnosis: Benign essential hypertension Discharge Diagnosis: Paroxysmal atrial fibrillation Discharge Diagnosis: Mixed hyperlipidemia Discharge Diagnosis: Decubitus ulcer of right buttock, stage 3 Discharge Diagnosis: CKD (chronic kidney disease) stage 3, GFR 30-59 ml/min Discharge Diagnosis: FABIO (obstructive sleep apnea) Discharge Diagnosis: Morbid obesity Discharge Diagnosis: Foul smelling urine Discharge Diagnosis: Chronic low back pain Discharge Disposition: 01-Home or Self Care Attending Physician: Mateus Guallpa MD Admitting Physician: Mateus Guallpa MD Vital Signs Most recent to oldest [Reference Range]: 1 Temperature Tympanic [36.6-38.1 degC] 36.3 degC *LOW* (06/03/17 2:46 PM) Apical Heart Rate [60-100 bpm] 68 bpm (06/03/17 2:46 PM) Blood Pressure [90-140/60-90 mmHg] 144/70 mmHg *HI* (06/03/17 2:46 PM) Problem List Condition Effective Dates Status [...] Adverse Reactions, Alerts Substance Reaction Severity Status penicillin Hives Active sulfamethoxazole-trimethoprim mouth sores Active Macrobid Hives Active oxyCODONE unresponsive for 3 days after surgery Active Medications allopurinol 300 mg oral tablet 150 mg 0.5 tabs, Oral, Daily, # 90 tabs, eRx: [facility] #[id number] Start Date: 01/18/17 Status: OrderedamLODIPine 2.5 mg oral tablet 2.5 mg 1 tabs, Oral, Daily, # 30 tabs, 0 Refill(s) Start Date: 04/20/16 Status: OrderedCalcium 500+D 1 tabs, Oral, Daily, 0 Refill(s) Start Date: 04/20/16 Status: OrderedcloNIDine 0.1 mg oral tablet 0.1 mg 1 tabs, Oral, BID, 0 Refill(s) Start Date: 06/03/17 Status: Orderedclotrimazole-betamethasone 1%-0.05% topical cream 1 chayo, Topical, BID, 1, # 45 g, 1 Refill(s), Pharmacy: [facility] #[id number] Start Date: 06/03/17 Status: OrderedCoumadin 5 mg oral tablet See Instructions, 1 tabs Oral 5 days a week or as directed by physician, # 30 tabs, 0 Refill(s), Pharmacy: [facility] #[id number], 1 tabs Oral 5 days a week or as directed by physician Start Date: 05/25/17 Status: Orderedcranberry oral tablet, chewable 0 Refill(s) Start Date: 02/16/17 Status: OrderedFish Oil 1000 mg oral capsule 2,000 mg 2 caps, Oral, Daily, 0 Refill(s) Start Date: 04/29/14 Status: Orderedgarlic 60 mg, Oral, Daily, 0 Refill(s) Start Date: 04/20/16 Status: Orderedmultivitamin 1 tabs, Oral, Daily, 0 Refill(s) Start Date: 04/29/14 Status: Orderedomeprazole 20 mg oral delayed release capsule 20 mg 1 caps, Oral, Daily, 0 Refill(s) Start Date: 06/03/17 Status: Orderedsimvastatin 20 mg oral tablet 20 mg 1 tabs, Oral, Bedtime (once a day), # 30 tabs, 0 Refill(s) Start Date: 04/20/16 Status: Orderedsotalol 80 mg oral tablet 80 mg 1 tabs, Oral, BID, # 90 tabs, 1 Refill(s), eRx: [facility] #[id number], TAKE ONE-HALF TABLETBY MOUTH TWICE A DAY FOR 90 DAYS . NEEDS APPOINTMENT FOR ADDITIONAL REFILLS-DUE IN NOVEMBER Start Date: 02/11/15 Status: Orderedvalsartan-hydrochlorothiazide 320 mg-25 mg oral tablet 1 tabs, Oral, Daily, Dr. Barnett, 0 Refill(s) Start Date: 06/03/17 Status: OrderedVitamin C 500 mg oral tablet 1 tabs, Oral, Daily, # 30 tabs, 0 Refill(s) Start Date: 04/29/14 Status: Orderedwarfarin 4 mg oral tablet See Instructions, TAKE ONE TABLET BY MOUTH Sun/mon/tu/thurs/fri/Sat, # 24 tabs , 0 Refill(s), Pharmacy: [facility] #[id number], TAKE ONE TABLET BY MOUTH Sun/ mon/tues/th/fri/Sat Start Date: 11/09/16 Status: OrderedZinc 50 mg, Oral, Daily Start Date: 05/03/14 Status: Ordered Results Coagulation Most recent to oldest [Reference Range]: 1 PT Venous (06/03/17 3:47 PM) INR [0.8-1.2] 2.5 1 *HI* (06/03/17 3:47 PM) 1Result Comment: Normal (no anticoagulant): 0.8 - 1.2 Units Routine Therapeutic Range: 2.0 - 3.0 Units High Risk Therapeutic Range: 2.5 - 3.5 UnitsUrinalysis Most recent to oldest [Reference Range]: 1 UA Color Yellow (06/03/17 4:25 PM) UA Appear Cloudy *ABN* (06/03/17 4:25 PM) UA pH [5.0-8.0] 5.5 (06/03/17 4:25 PM) UA Leuk Est [Negative] Pos 2+ *ABN* (06/03/17 4:25 PM) UA Nitrite [Negative] Positive *ABN* (06/03/17 4:25 PM) UA Protein [Negative] Pos 1+ *ABN* (06/03/17 4:25 PM) UA Glucose [Negative] Negative (06/03/17 4:25 PM) UA Ketones [Negative] Negative (06/03/17 4:25 PM) UA Urobilinogen [<1.0 mg/dL] 0.2 mg/dL (06/03/17 4:25 PM) UA Bili [Negative] Negative (06/03/17 4:25 PM) UA Blood [Negative] Pos 1+ *ABN* (06/03/17 4:25 PM) UA Spec Grav [1.003-1.030] 1.017 (06/03/17 4:25 PM) Type Clean Catch (06/03/17 4:25 PM) UA WBC [0-4] 20-50 *ABN* (06/03/17 4:25 PM) UA RBC [0-4] 0-4 (06/03/17 4:25 PM) Epithelial Cells 0-2 (06/03/17 4:25 PM) UA Bacteria Numerous *ABN* (06/03/17 4:25 PM) UA Hyal Cast [0-3] 4-6 *ABN* (06/03/17 4:25 PM) Immunizations Given and Recorded Vaccine Date Status [...] in 1 year (02/12/2011) . Letter set up.[id number]'s Social History Social History Type Response Smoking Status Never smoker entered on: 05/03/14 Assessment and Plan Extracted from: Title: Ambulatory Patient Education Author: Mateus Guallpa MD Date: 06/03/17 Cardiovascular Atrial Fibrillation Atrial fibrillation is a type of irregular or rapid heartbeat (arrhythmia). In atrial fibrillation, the heart quivers continuously in a chaotic pattern. This occurs when parts of the heart receive disor ganized signals that make the heart unable to pump blood normally. This can increase the risk for stroke, heart failure, and other heart-related conditions. There are different types of atrial fibrillation, including: Paroxysmal atrial fibrillation. This type starts suddenly, and it usually stops on its own shortly after it starts. Persistent atrial fibrillation. This type often lasts longer than a week. It may stop on its own or with treatment. Long-lasting persistent atrial fibrillation. This type lasts longer than 12 months. Permanent atrial fibrillation. This type does not go away. Talk with your health care provider to learn about the type of atrial fibrillation that you have. CAUSES This condition is caused by some heart-related conditions or procedures, including: A heart attack. Coronary artery disease. Heart failure. Heart valve conditions. High blood pressure. Inflammation of the sac that surrounds the heart (pericarditis). Heart surgery. Certain heart rhythm disorders, such as Zyir-Vnkovfzwu-Mtzsy syndrome. Other causes include: Pneumonia. Obstructive sleep apnea. Blockage of an artery in the lungs (pulmonary embolism, or PE). Lung cancer. Chronic lung disease. Thyroid problems, especially if the thyroid is overactive (hyperthyroidism) . Caffeine. Excessive alcohol use or illegal drug use. Use of some medicines, including certain decongestants and diet pills. Sometimes, the cause cannot be found. RISK FACTORS This condition is more likely to develop in: People who are older in age. People who smoke. People who have diabetes mellitus. People who are overweight (obese). Athletes who exercise vigorously. SYMPTOMS Symptoms of this condition include: A feeling that your heart is beating rapidly or irregularly. A feeling of discomfort or pain in your chest. Shortness of breath. Sudden light-headedness or weakness. Getting tired easily during exercise. In some cases, there are no symptoms. DIAGNOSIS Your health care provider may be able to detect atrial fibrillation when taking your pulse. If detected, this condition may be diagnosed with: An electrocardiogram (ECG). A Holter monitor test that records your heartbeat patterns over a 24-hour period. Transthoracic echocardiogram (TTE) to evaluate how blood flows through your heart. Transesophageal echocardiogram (MITRA) to view more detailed images of your heart. A stress test. Imaging tests, such as a CT scan or chest X-ray. Blood tests. TREATMENT The main goals of treatment are to prevent blood clots from forming and to keep your heart beating at a normal rate and rhythm. The type of treatment that you receive depends on many factors, such as yo ur underlying medical conditions and how you feel when you are experiencing atrial fibrillation. This condition may be treated with: Medicine to slow down the heart rate, bring the heart's rhythm back to normal, or prevent clots from forming. Electrical cardioversion. This is a procedure that resets your heart's rhythm by delivering a controlled, low-energy shock to the heart through your skin. Different types of ablation, such as catheter ablation, catheter ablation with pacemaker, or surgical ablation. These procedures destroy the heart tissues that send abnormal signals. When the pacema ker is used, it is placed under your skin to help your heart beat in a regular rhythm. HOME CARE INSTRUCTIONS Take over-the counter and prescription medicines only as told by your health care provider. If your health care provider prescribed a blood-thinning medicine ( anticoagulant), take it exactly as told. Taking too much blood-thinning medicine can cause bleeding. If you do not take enough bloo d-thinning medicine, you will not have the protection that you need against stroke and other problems. Do not use tobacco products, including cigarettes, chewing tobacco, and e- cigarettes. If you need help quitting, ask your health care provider. If you have obstructive sleep apnea, manage your condition as told by your health care provider. Do not drink alcohol. Do not drink beverages that contain caffeine, such as coffee, soda, and tea. Maintain a healthy weight. Do not use diet pills unless your health care provider approves. Diet pills may make heart problems worse. Follow diet instructions as told by your health care provider. Exercise regularly as told by your health care provider. Keep all follow-up visits as told by your health care provider. This is important. PREVENTION Avoid drinking beverages that contain caffeine or alcohol. Avoid certain medicines, especially medicines that are used for breathing problems. Avoid certain herbs and herbal medicines, such as those that contain ephedra or ginseng. Do not use illegal drugs, such as cocaine and amphetamines. Do not smoke. Manage your high blood pressure. SEEK MEDICAL CARE IF: You notice a change in the rate, rhythm, or strength of your heartbeat. You are taking an anticoagulant and you notice increased bruising. You tire more easily when you exercise or exert yourself. SEEK IMMEDIATE MEDICAL CARE IF: You have chest pain, abdominal pain, sweating, or weakness. You feel nauseous. You notice blood in your vomit, bowel movement, or urine. You have shortness of breath. You suddenly have swollen feet and ankles. You feel dizzy. You have sudden weakness or numbness of the face, arm, or leg, especially on one side of the body. You have trouble speaking, trouble understanding, or both (aphasia). Your face or your eyelid droops on one side. These symptoms may represent a serious problem that is an emergency. Do not wait to see if the symptoms will go away. Get medical help right away. Call your local emergency services (911 in the [place] Do not drive yourself to the hospital. This information is not intended to replace advice given to you by your health care provider. Make sure you discuss any questions you have with your health care provider. Document Released: 09/12/2006 Document Revised: 06/02/2016 Document Reviewed: 01/07/2016 [employer] Patient Education 2016 [employer] No follow up information was provided. Extracted from: Title: multiple problems Author: Mateus Guallpa MD Date: 06/03/17 Impression and Plan Diagnosis Foul smelling urine (UKE67-CF R39.9, Discharge, Medical). Decubitus ulcer of right buttock, stage 3 (JYJ79-PO L89.313, Discharge, Medical ). CKD (chronic kidney disease) stage 3, GFR 30-59 ml/min (VQD94-KB N18.3, Discharge, Medical). Paroxysmal atrial fibrillation (KEW48-SG I48.0, Discharge, Medical). FABIO (obstructive sleep apnea) (FRH14-OA G47.33, Discharge, Medical). Benign essential hypertension (ABT15-HD I10, Discharge, Medical). Mixed hyperlipidemia (XJO46-PX E78.2, Discharge, Medical). Morbid obesity (GBJ33-WB E66.01, Discharge, Medical). Chronic low back pain (TMG95-FU M54.5, Discharge, Medical). Plan: 1) UA ordered, due to your urinary symptoms. 2) You may use the Clotrimazole-Betamethasone cream to the perineal area where it itches as needed. 3) You refused to see the sleep doctor for your FABIO. 4) [facility]ock decubitus ulcer. 5) You need an electrically adjustable hospital bed and a Donut cushion (for the recliner), due to your decubitus right buttock ulcer. You have severe mobility problems (limited gait) and back pain, a s well as morbid obesity and sleep apnea which is limiting your ability to lie flat in bed. 6) See me in one month and as needed. 7) No changes were made to your meds today, although you might need antibiotics for a UTI.. Orders Orders (Selected) Outpatient Orders Ordered Office Visit Level 4 Est 15922: Future (On Hold) PT/INR: Routine Urinalysis: Prescriptions Prescribed clotrimazole-betamethasone 1%-0.05% topical cream: 1 chayo, Topical, BID, 1, 45 g , 1 Refill(s). Dx/Order Association Plan: Diagnosis: Benign essential hypertension Comment: Ordered: Office Visit Level 4 Est [id number]; 06/03/17 15:33:00 CDT, Decubitus ulcer of right buttock, stage 3 | Foul smelling urine | Chronic low back pain | Paroxysmal atrial fibrillation | O SA (obstructive sleep apnea) | Mixed hyperlipidemia | Benign essential hypertension | CKD (chronic kidne... Diagnosis: CKD (chronic kidney disease) stage 3, GFR 30-59 ml/min Comment: Ordered: Office Visit Level 4 Est [id number]; 06/03/17 15:33:00 CDT, Decubitus ulcer of right buttock, stage 3 | Foul smelling urine | Chronic low back pain | Paroxysmal atrial fibrillation | O SA (obstructive sleep apnea) | Mixed hyperlipidemia | Benign essential hypertension | CKD (chronic kidne... Diagnosis: Chronic low back pain Comment: Ordered: Office Visit Level 4 Est [id number]; 06/03/17 15:33:00 CDT, Decubitus ulcer of right buttock, stage 3 | Foul smelling urine | Chronic low back pain | Paroxysmal atrial fibrillation | O SA (obstructive sleep apnea) | Mixed hyperlipidemia | Benign essential hypertension | CKD (chronic kidne... Diagnosis: Decubitus ulcer of right buttock, stage 3 Comment: Ordered: Office Visit Level 4 Est [id number]; 06/03/17 15:33:00 CDT, Decubitus ulcer of right buttock, stage 3 | Foul smelling urine | Chronic low back pain | Paroxysmal atrial fibrillation | O SA (obstructive sleep apnea) | Mixed hyperlipidemia | Benign essential hypertension | CKD (chronic kidne... Diagnosis: Foul smelling urine Comment: Ordered: Office Visit Level 4 Est [id number]; 06/03/17 15:33:00 CDT, Decubitus ulcer of right buttock, stage 3 | Foul smelling urine | Chronic low back pain | Paroxysmal atrial fibrillation | O SA (obstructive sleep apnea) | Mixed hyperlipidemia | Benign essential hypertension | CKD (chronic kidne... Diagnosis: Mixed hyperlipidemia Comment: Ordered: Office Visit Level 4 Est [id number]; 06/03/17 15:33:00 CDT, Decubitus ulcer of right buttock, stage 3 | Foul smelling urine | Chronic low back pain | Paroxysmal atrial fibrillation | O SA (obstructive sleep apnea) | Mixed hyperlipidemia | Benign essential hypertension | CKD (chronic kidne... Diagnosis: Morbid obesity Comment: Ordered: Office Visit Level 4 Est [id number]; 06/03/17 15:33:00 CDT, Decubitus ulcer of right buttock, stage 3 | Foul smelling urine | Chronic low back pain | Paroxysmal atrial fibrillation | O SA (obstructive sleep apnea) | Mixed hyperlipidemia | Benign essential hypertension | CKD (chronic kidne... Diagnosis: FABIO (obstructive sleep apnea) Comment: Ordered: Office Visit Level 4 Est [id number]; 06/03/17 15:33:00 CDT, Decubitus ulcer of right buttock, stage 3 | Foul smelling urine | Chronic low back pain | Paroxysmal atrial fibrillation | O SA (obstructive sleep apnea) | Mixed hyperlipidemia | Benign essential hypertension | CKD (chronic kidne... Diagnosis: Paroxysmal atrial fibrillation Comment: Ordered: Office Visit Level 4 Est [id number]; 06/03/17 15:33:00 CDT, Decubitus ulcer of right buttock, stage 3 | Foul smelling urine | Chronic low back pain | Paroxysmal atrial fibrillation | O SA (obstructive sleep apnea) | Mixed hyperlipidemia | Benign essential hypertension | CKD (chronic kidne... Diagnosis: Foul smelling urine Comment: Additional Orders: Comment: Ordered: clotrimazole-betamethasone 1%-0.05% topical cream,1 chayo, Topical, BID, 1, # 45 g, 1 Refill(s), Pharmacy: [facility] #[id number] End of Orders ."
[2018-03-23 16:43] VITALS: BMI 43.7
[2018-03-23] MEDS ORDERED: NS 1,000 ML IV SCH (17:45)
--- NOTE | 2018-03-23 17:57 | History & Physical Report ---
History of Present Illness Date: 03/23/18 HPI: 82 yo female recently admitted (02/16-02/24) and treated for a vulvar cellulitis with Rocephin and Diflucan. She was found to have C. diff during her hospitalization. Per records stools were slowing down and starting to be formed when patient was dismissed on 02/24. She was to continue 8 more days of Vanco 125 mg po q6. She says she was on the Vanco until last . She says she still was having loose stools but that they have been worse since stopping the Vanco. She saw her PCP, Dr. Guallpa, at his office today. Her temp there was 101. She says she has been having abdominal cramps prior to loose stools. She says she is going about every 2 hours. She says she is trying to drink fluids but has been reluctant to eat because of the frequency of the stools. Review of Systems - Constitutional Constitutional: Present: anorexia - EENMT Eyes: Absent: change in vision Balance: Absent: ataxia - Cardiovascular Cardiovascular: Absent: chest pain, palpitations, syncope Vascular: Present: pedal edema - Respiratory Respiratory: Absent: cough, dyspnea - Gastrointestinal Gastrointestinal: Present: as per HPI - Genitourinary Genitourinary: Present: dysuria - Musculoskeletal Musculoskeletal: Absent: arthralgias, back pain - Neurological Neurological: Absent: dizziness, lack of coordination Past Medical History Medical History Updates: Atrial fibrillation, anticoagulated on Coumadin. Diet controlled DM. CHF. Hypertension. FABIO, declined CPAP. GERD. Osteoarthritis. Gout. Insomnia Surgical History: Appendectomy. Bilateral cataracts removed. Colonoscopy in 2009 with multiple polyps tubular adenomatous type and hyperplastic polyps. Cholecystectomy. Ovarian cystectomy followed by hysterectomy. Bilateral knee replacements, left hip replacement. Hemorrhoidectomy. Bilateral carpal tunnel release. Pacemaker placed in 2016. Family History: Father at age 81 of a stroke. Mother at age 83 of congestive heart failure and insulin shock. Sr. of congestive heart failure. A stepsister of old age. Stepbrother of brain cancer. Paternal grandfather at age 90 of a stroke, and paternal grandmother at age 45 of pneumonia. She has 5 sons: One at age 57 of sepsis. He also had diabetes and COPD. Another son has diabetes. Another son is a smoker but is otherwise healthy. One has high blood pressure. The other son does not see a doctor so they don't know his medical problems. Family History: As Above - Social History Smoking status: Never smoker Alcohol intake frequency: does not drink Current residence: Apartment/Private Home Medications Home Medications Medication Instructions Recorded Confirmed Type Calcium Carbonate 1 tab PO DAILY #0 05/05/10 02/13/18 History Garlic [Garlic Oil] 2,000 mg PO DAILY #0 05/05/10 02/13/18 History Multi-Vitamin + Mineral 1 tab PO DAILY #0 05/05/10 02/13/18 History [Therapeutic - M] Omeprazole 40 mg PO DAILY #0 05/05/10 02/13/18 History Zinc Amino Acid Chelate [Zinc] 50 mg PO DAILY #0 05/10/14 02/13/18 History Valsartan [Diovan] 320 tab PO DAILY #0 tab 05/27/14 02/13/18 History Allopurinol [Zyloprim] 150 mg PO DAILY 01/06/18 02/13/18 History Amlodipine Besylate [Norvasc] 2.5 mg PO DAILY 01/06/18 02/13/18 History CloNIDine [Catapres] 1 tab PO BID 01/06/18 02/13/18 History [place]-3/Dha/Epa/Fish Oil [Fish Oil 2,000 mg PO DAILY 01/06/18 02/13/18 History 1,000 mg Softgel] Simvastatin 20 mg PO HS 01/06/18 02/13/18 History Sotalol HCl [Betapace] 80 mg PO ACBID 01/06/18 02/13/18 History Apixaban [Eliquis] 5 mg PO BID 02/13/18 02/13/18 History Acidoph/L.bulg/Bif.b/S.thermop 2 cap PO TIDWM tab 02/24/18 Rx [Bacid Caplet] Nystatin Ointment [Mycostatin] 1 applicatio TP TID tube 02/24/18 Rx Acetaminophen [Tylenol] 325 mg PO Q4H PRN 03/23/18 03/23/18 History Ascorbic Acid [Vitamin C] 250 mg PO DAILY 03/23/18 03/23/18 History Ferrous Sulfate 325 mg PO DAILY 03/23/18 03/23/18 History Hydrocodone/APAP 5/325 [[place] 1 - 2 tab PO Q6H PRN 03/23/18 03/23/18 History 5/325] Loperamide HCl [Loperamide] 1 tab PO PRN PRN 03/23/18 03/23/18 History Nystatin Powder [Mycostatin] 1 applicatio PO TID 03/23/18 03/23/18 History Slow Fe 1 tab PO DAILY 03/23/18 03/23/18 History Allergies Allergy/AdvReac Type Severity Reaction Status Date / Time oxycodone Allergy Severe Unresponsiv Verified 03/23/18 16:45 e sulfamethoxazole Allergy Intermediate Blister Verified 03/23/18 16:45 Penicillins Allergy Mild RASH Verified 03/23/18 16:45 Exam Vital Signs: Temperature 99.8 F 03/23/18 16:50 Pulse Rate 60 03/23/18 16:50 Respiratory Rate 18 03/23/18 16:50 Blood Pressure 146/58 H 03/23/18 16:50 Pulse Oximetry 96 03/23/18 16:50 Height/Weight/BMI: Height 4 ft 11 in Weight 98.2 kg Body Mass Index 43.7 - Constitutional Present: no acute distress - Routine HEENT Exam Head: Present: normocephalic, atraumatic Eye: Present: EOMI, PERRL ENT: Present: mucous membranes moist - Routine Respiratory Exam Present: CTA bilaterally. Absent: accessory muscle use - Routine Cardiovascular Exam Present: S1, S2, irregularly irregular - Routine Abdominal Exam Present: tenderness. Absent: rebound, guarding Comments: LLQ tender - Routine Extremities Exam Present: no edema. Absent: cyanosis, clubbing - Routine Neurological Exam Present: alert, oriented X3, CN II-XII intact, moving all extremities - Routine Psychiatric Exam Present: normal affect, cooperative Results - Labs CBC & Chem 7: 03/23/18 18:00 03/23/18 18:00 Assessment and Plan Assessment and Plan: Impression C. diff colitis, recurrent? Atrial fib, on Eliquis diet-controlled DM2 GERD HTN FABIO, declined cpap in past fever dyslipidemia Plan Admit as inpatient. Expected stay at least 2 midnights. Check stool for c diff. Will start oral vanco. Patient was febrile at PCP's office. No other indication for sepsis at this time. WBC wnl. Lactate is 0.8. Cr up to 1.4; was 1.0 on 02/24. Will start IVF x 1 liter. Will resume home meds, including clonidine, sotalolol, Eliquis. Hold ARB and monitor renal function. Monitor accuchecks. Diabetic diet. Was recently at retirement. Consult PT/OT and encourage activity. At time of discharge medical care is to return to PCP Dr Bauer DVT Prophylaxis: Eliquis GI Prophylaxis: Omeprazole - Physician Narrative Narrative: Date: 03/23/18 Time: 1747 Sepsis Assessment - Evaluation SIRS Criteria: temperature > 100.9 Severe Sepsis: none seen Hospital Course Summary Disclaimer: The visit summary below is not to be considered part of the above Progress Note. Hospital Course: Admit as inpatient. Expected stay at least 2 midnights. Check stool for c diff. Will start oral vanco. Patient was febrile at PCP's office. No other indication for sepsis at this time. WBC wnl. Lactate is 0.8. Cr up to 1.4; was 1.0 on 02/24. Will start IVF x 1 liter. Will resume home meds, including clonidine, sotalolol, Eliquis. Hold ARB and monitor renal function. Monitor accuchecks. Diabetic diet. Was recently at retirement. Consult PT/OT and encourage activity. At time of discharge medical care is to return to PCP Dr Bauer
[2018-03-23] MEDS ORDERED: ACETAMINOPHEN 325 MG TABLET PO PRN (18:54)
[2018-03-23] MEDS: VANCOMYCIN 250mg/5ml ORAL LIQ PO SCH ×2 (19:00→21:25)
[2018-03-23] MEDS: SIMVASTATIN 20 MG TABLET PO SCH (21:25)
[2018-03-23] MEDS: APIXABAN 5 MG TABLET PO SCH (21:25)
[2018-03-23] MEDS: SALINE FLUSH 10ml SYRINGE IV PRN (22:11)
[2018-03-24] MEDS: VANCOMYCIN 250mg/5ml ORAL LIQ PO SCH ×4 (03:33→21:32)
[2018-03-24] MEDS: OMEPRAZOLE 20 MG CAPSULE PO SCH (07:21)
[2018-03-24] MEDS: SOTALOL 80 MG TABLET PO SCH ×2 (07:21→17:43)
[2018-03-24] MEDS: APIXABAN 5 MG TABLET PO SCH ×2 (09:29→21:32)
[2018-03-24] MEDS: ALLOPURINOL 300 MG TABLET PO SCH (09:29)
[2018-03-24] MEDS: LACTOBACILLUS (15B cfu) CAPSULE PO SCH ×3 (09:30→17:45)
[2018-03-24] MEDS: AMLODIPINE 2.5 MG TABLET PO SCH (09:30)
[2018-03-24] MEDS: FERROUS SULFATE 324 MG TABLET PO SCH (09:30)
--- NOTE | 2018-03-24 12:49 | Progress Note ---
- Date 03/24/18 Subjective: Patient up to chair. Says she is feeling better. Ate a good breakfast. Says her bowels are more watery today. Reports 4 watery stools today. Says stools had been black and has attributed that to being on iron. Stools brown/green liquid per charting. Patient says she doesn't have any abdominal pain except for some cramping in LLQ when her bowels are about to move. Objective Vital signs: Temperature 97.6 F 03/24/18 07:59 Pulse Rate 74 03/24/18 07:59 Respiratory Rate 20 03/24/18 07:59 Blood Pressure 139/49 03/24/18 07:59 Pulse Oximetry 97 03/24/18 07:59 Height/Weight/BMI: Height 4 ft 11 in Weight 98.5 kg Body Mass Index 43.7 - Constitutional Present: no acute distress, mild distress - Routine HEENT Exam Head: Present: normocephalic, atraumatic Eye: Present: EOMI, PERRL ENT: Present: mucous membranes moist - Routine Respiratory Exam Present: CTA bilaterally. Absent: accessory muscle use - Routine Cardiovascular Exam Present: irregularly irregular - Routine Abdominal Exam Present: soft, normoactive bowel sounds, tenderness - Routine Extremities Exam Absent: cyanosis, clubbing, edema - Routine Neurological Exam Present: alert, oriented X3 - Routine Psychiatric Exam Present: normal affect, cooperative Results - Labs CBC & Chem 7: 03/24/18 04:18 03/24/18 04:18 Assessment and Plan Assessment and Plan: Impression C. diff colitis, recurrent? Atrial fib, on Eliquis diet-controlled DM2 GERD HTN FABIO, declined cpap in past fever dyslipidemia Plan Check stool for c diff. Continue oral vanco. No indication of sepsis. Cr improved after 1L NS. Encouraged patient to drink more fluids. Continue home meds, including clonidine, sotalolol, Eliquis. Holding ARB and monitor renal function. Monitor accuchecks. Diabetic diet. Was recently at [facility]. Consulted PT/OT and encouraging activity. Hgb down from 10.3 to 9.2. May be dilutional. Will recheck cbc in am. Check for fob. DVT Prophylaxis: Heidyquis - Physician Narrative Narrative: Date: 03/24/18 Time: 1243 Hospital Course Summary Disclaimer: The visit summary below is not to be considered part of the above Progress Note. Hospital Course: Admit as inpatient. Expected stay at least 2 midnights. Check stool for c diff. Will start oral vanco. Patient was febrile at PCP's office. No other indication for sepsis at this time. WBC wnl. Lactate is 0.8. Cr up to 1.4; was 1.0 on 02/24. Will start IVF x 1 liter. Will resume home meds, including clonidine, sotalolol, Eliquis. Hold ARB and monitor renal function. Monitor accuchecks. Diabetic diet. Was recently at [facility]. Consult PT/OT and encourage activity. At time of discharge medical care is to return to PCP Dr Bauer 03/24 Check stool for c diff. Continue oral vanco. No indication of sepsis. Cr improved after 1L NS. Encouraged patient to drink more fluids. Continue home meds, including clonidine, sotalolol, Eliquis. Holding ARB and monitor renal function. Monitor accuchecks. Diabetic diet. Was recently at [facility]. Consulted PT/OT and encouraging activity. Hgb down from 10.3 to 9.2. May be dilutional. Will recheck cbc in am. Check for fob.
[2018-03-24] MEDS: SIMVASTATIN 20 MG TABLET PO SCH (21:33)
[2018-03-25] MEDS: VANCOMYCIN 250mg/5ml ORAL LIQ PO SCH ×4 (03:48→20:38)
[2018-03-25] MEDS: SOTALOL 80 MG TABLET PO SCH ×2 (07:09→16:43)
[2018-03-25] MEDS: OMEPRAZOLE 20 MG CAPSULE PO SCH (07:13)
[2018-03-25] MEDS: LACTOBACILLUS (15B cfu) CAPSULE PO SCH ×3 (12:59→16:43)
[2018-03-25] MEDS: APIXABAN 5 MG TABLET PO SCH ×2 (13:01→20:38)
[2018-03-25] MEDS: ALLOPURINOL 300 MG TABLET PO SCH (13:01)
[2018-03-25] MEDS: FERROUS SULFATE 324 MG TABLET PO SCH (13:01)
[2018-03-25] MEDS: AMLODIPINE 2.5 MG TABLET PO SCH (13:02)
--- NOTE | 2018-03-25 16:29 | Progress Note ---
- Date 03/25/18 Subjective: Up to chair and talking on phone when seen in her room. Patient says she has had 5 loose stools. Nurse says 3 have been charted. Patient overall is feeling better. Objective Vital signs: Temperature 96.7 F L 03/25/18 15:20 Pulse Rate 65 03/25/18 15:20 Respiratory Rate 16 03/25/18 15:20 Blood Pressure 125/50 03/25/18 15:20 Pulse Oximetry 98 03/25/18 15:20 Height/Weight/BMI: Height 4 ft 11 in Weight 100.2 kg Body Mass Index 43.7 - Constitutional Present: no acute distress - Routine HEENT Exam Head: Present: normocephalic, atraumatic Eye: Present: EOMI, PERRL ENT: Present: mucous membranes moist - Routine Respiratory Exam Present: CTA bilaterally - Routine Cardiovascular Exam Present: irregularly irregular - Routine Abdominal Exam Present: soft, normoactive bowel sounds, non distended, non tender - Routine Extremities Exam Absent: cyanosis, clubbing, edema - Routine Neurological Exam Present: alert, oriented X3 - Routine Psychiatric Exam Present: normal affect, cooperative Results - Labs CBC & Chem 7: 03/25/18 04:06 03/25/18 04:06 Microbiology Results: Microbiology 03/25/18 09:33 Stool Clostridium difficile Antigen ([facility]IE) - Final Assessment and Plan Assessment and Plan: Impression C. diff colitis, recurrent? Atrial fib, on Eliquis diet-controlled DM2 GERD HTN FABIO, declined cpap in past fever dyslipidemia metabolic acidosis, d/t diarrhea Plan Checking stool for c diff - lab order now corrected to be done in house instead of sent out to [facility]. Continue oral vanco. No indication of sepsis. Asked nurse for a stool chart in the room to ensure accurate count of stools. Cr improved after 1L NS. Encouraged patient to drink more fluids. Weight up 2 kg. will monitor and consider low dose lasix. Continue home meds, including clonidine, sotalolol, Eliquis. Holding ARB and monitor renal function. Monitor accuchecks. Diabetic diet. Was recently [facility]. Consulted PT/OT and encouraging activity. Hgb up to 9.5. Monitor. stool occult blood negative x 1. - Physician Narrative Narrative: Date: 03/25/18 Time: 1625 Hospital Course Summary Disclaimer: The visit summary below is not to be considered part of the above Progress Note. Hospital Course: Admit as inpatient. Expected stay at least 2 midnights. Check stool for c diff. Will start oral vanco. Patient was febrile at PCP's office. No other indication for sepsis at this time. WBC wnl. Lactate is 0.8. Cr up to 1.4; was 1.0 on 02/24. Will start IVF x 1 liter. Will resume home meds, including clonidine, sotalolol, Eliquis. Hold ARB and monitor renal function. Monitor accuchecks. Diabetic diet. Was recently [facility]. Consult PT/OT and encourage activity. At time of discharge medical care is to return to PCP Dr Bauer 03/24 Check stool for c diff. Continue oral vanco. No indication of sepsis. Cr improved after 1L NS. Encouraged patient to drink more fluids. Continue home meds, including clonidine, sotalolol, Eliquis. Holding ARB and monitor renal function. Monitor accuchecks. Diabetic diet. Was recently at [facility]. Consulted PT/OT and encouraging activity. Hgb down from 10.3 to 9.2. May be dilutional. Will recheck cbc in am. Check for fob. 03/25 Checking stool for c diff - lab order now corrected to be done in house instead of sent out to [facility]. Continue oral vanco. No indication of sepsis. Asked nurse for a stool chart in the room to ensure accurate count of stools. Cr improved after 1L NS. Encouraged patient to drink more fluids. Weight up 2 kg. will monitor and consider low dose lasix. Continue home meds, including clonidine, sotalolol, Eliquis. Holding ARB and monitor renal function. Monitor accuchecks. Diabetic diet. Was recently [facility]. Consulted PT/OT and encouraging activity. Hgb up to 9.5. Monitor. stool occult blood negative x 1.
[2018-03-25] MEDS: SIMVASTATIN 20 MG TABLET PO SCH (20:37)
[2018-03-25] MEDS: SALINE FLUSH 10ml SYRINGE IV PRN (20:39)
[2018-03-26] MEDS: VANCOMYCIN 250mg/5ml ORAL LIQ PO SCH ×4 (03:17→21:11)
[2018-03-26] MEDS: OMEPRAZOLE 20 MG CAPSULE PO SCH (06:20)
[2018-03-26] MEDS: SOTALOL 80 MG TABLET PO SCH ×2 (06:20→17:26)
[2018-03-26] MEDS: LACTOBACILLUS (15B cfu) CAPSULE PO SCH ×3 (09:02→17:27)
[2018-03-26] MEDS: FERROUS SULFATE 324 MG TABLET PO SCH (09:02)
[2018-03-26] MEDS: AMLODIPINE 2.5 MG TABLET PO SCH (09:03)
[2018-03-26] MEDS: ALLOPURINOL 300 MG TABLET PO SCH (09:03)
[2018-03-26] MEDS: APIXABAN 5 MG TABLET PO SCH ×2 (09:03→21:12)
--- NOTE | 2018-03-26 15:07 | Progress Note ---
- Date 03/26/18 Subjective: Says she is feeling better. Had 3 loose stools overnight. No abdominal pain except LLQ cramping before stools. Ambulates but doesn't want to stray too far from BR. Objective Vital signs: Temperature 96.0 F L 03/26/18 07:55 Pulse Rate 69 03/26/18 07:55 Respiratory Rate 16 03/26/18 07:55 Blood Pressure 129/63 03/26/18 07:55 Pulse Oximetry 98 03/26/18 07:55 Height/Weight/BMI: Height 4 ft 11 in Weight 100.2 kg Body Mass Index 43.7 - Constitutional Present: no acute distress - Routine HEENT Exam Head: Present: normocephalic, atraumatic Eye: Present: EOMI, PERRL ENT: Present: mucous membranes moist - Routine Respiratory Exam Present: CTA bilaterally - Routine Cardiovascular Exam Present: irregular rhythm - Routine Abdominal Exam Present: soft, normoactive bowel sounds, non distended, non tender - Routine Extremities Exam Present: no edema - Routine Neurological Exam Present: alert, oriented X3, CN II-XII intact - Routine Psychiatric Exam Present: normal affect, cooperative Results - Labs CBC & Chem 7: 03/25/18 04:06 03/25/18 04:06 Microbiology Results: Microbiology 03/25/18 09:33 Stool Clostridium difficile Antigen (EDIE) - Final Assessment and Plan Assessment and Plan: Impression C. diff colitis, recurrent? Atrial fib, on Eliquis diet-controlled DM2 GERD HTN FABIO, declined cpap in past fever dyslipidemia metabolic acidosis, d/t diarrhea anemia Plan Positive for c diff. Continue oral vanco. WBC has not been elevated. No indication of sepsis. Has been on oral vanco for about 72 hours. Will start imodium to try to slow bowels. Asked nurse for a stool chart in the room to ensure accurate count of stools. Cr improved after 1L NS. Encouraged patient to drink more fluids. Weight up 2 kg. Will monitor. Continue home meds, including clonidine, sotalolol, Eliquis. Holding ARB. Renal function stable and so is BP off ARB. monitor. Monitor accuchecks. Diabetic diet. [facility] Consulted PT/OT and encouraging activity. Hgb at 9.5. Monitor. stool occult blood negative x 1. - Physician Narrative Narrative: Date: 03/26/18 Time: 1459 Hospital Course Summary Disclaimer: The visit summary below is not to be considered part of the above Progress Note. Hospital Course: Admit as inpatient. Expected stay at least 2 midnights. Check stool for c diff. Will start oral vanco. Patient was febrile at PCP's office. No other indication for sepsis at this time. WBC wnl. Lactate is 0.8. Cr up to 1.4; was 1.0 on 02/24. Will start IVF x 1 liter. Will resume home meds, including clonidine, sotalolol, Eliquis. Hold ARB and monitor renal function. Monitor accuchecks. Diabetic diet. Was recently [facility]. Consult PT/OT and encourage activity. At time of discharge medical care is to return to PCP Dr Bauer 03/24 Check stool for c diff. Continue oral vanco. No indication of sepsis. Cr improved after 1L NS. Encouraged patient to drink more fluids. Continue home meds, including clonidine, sotalolol, Eliquis. Holding ARB and monitor renal function. Monitor accuchecks. Diabetic diet. Was recently [facility]. Consulted PT/OT and encouraging activity. Hgb down from 10.3 to 9.2. May be dilutional. Will recheck cbc in am. Check for fob. 03/25 Checking stool for c diff - lab order now corrected to be done in house instead of sent out to [facility]. Continue oral vanco. No indication of sepsis. Asked nurse for a stool chart in the room to ensure accurate count of stools. Cr improved after 1L NS. Encouraged patient to drink more fluids. Weight up 2 kg. will monitor and consider low dose lasix. Continue home meds, including clonidine, sotalolol, Eliquis. Holding ARB and monitor renal function. Monitor accuchecks. Diabetic diet. Was recently [facility]. Consulted PT/OT and encouraging activity. Hgb up to 9.5. Monitor. stool occult blood negative x 1. 7 Positive for c diff. Continue oral vanco. WBC has not been elevated. No indication of sepsis. Has been on oral vanco for about 72 hours. Will start imodium to try to slow bowels. Asked nurse for a stool chart in the room to ensure accurate count of stools. Cr improved after 1L NS. Encouraged patient to drink more fluids. Weight up 2 kg. Will monitor. Continue home meds, including clonidine, sotalolol, Eliquis. Holding ARB. Renal function stable and so is BP off ARB. monitor. Monitor accuchecks. Diabetic diet. Was recently [facility]. Consulted PT/OT and encouraging activity. Hgb at 9.5. Monitor. stool occult blood negative x 1.
[2018-03-26] MEDS: LOPERAMIDE 2 MG CAPSULE PO PRN ×3 (15:34→18:44)
[2018-03-26] MEDS: SIMVASTATIN 20 MG TABLET PO SCH (21:12)
[2018-03-27] MEDS: VANCOMYCIN 250mg/5ml ORAL LIQ PO SCH ×2 (03:13→08:53)
[2018-03-27] MEDS: OMEPRAZOLE 20 MG CAPSULE PO SCH (05:53)
[2018-03-27] MEDS: SOTALOL 80 MG TABLET PO SCH ×2 (05:53→16:47)
[2018-03-27] MEDS: FERROUS SULFATE 324 MG TABLET PO SCH (08:52)
[2018-03-27] MEDS: APIXABAN 5 MG TABLET PO SCH ×2 (08:52→21:22)
[2018-03-27] MEDS: LACTOBACILLUS (15B cfu) CAPSULE PO SCH ×3 (08:52→16:47)
[2018-03-27] MEDS: AMLODIPINE 2.5 MG TABLET PO SCH (08:53)
[2018-03-27] MEDS: ALLOPURINOL 300 MG TABLET PO SCH (08:53)
[2018-03-27] MEDS ORDERED: CHOLESTYRAMINE LIGHT 4 G PACKET PO PRN (13:38)
--- NOTE | 2018-03-27 13:53 | Progress Note ---
- Date 03/27/18 Subjective: Ora is seen today in follow up. She is up in the chair feeling good. She has 1 BM since last evening at 6 pm. She denies having pain on examination. Reports she her ankles are starting to swell and she notes that she has been off her Valsartan since admission. She chronically get BLE edema left worse than right. Objective Vital signs: Temperature 96.3 F L 03/27/18 07:45 Pulse Rate 68 03/27/18 07:45 Respiratory Rate 22 03/27/18 07:45 Blood Pressure 145/61 H 03/27/18 07:45 Pulse Oximetry 98 03/27/18 07:45 Height/Weight/BMI: Height 1.5 m Weight 101.6 kg Body Mass Index 43.7 - Constitutional Present: no acute distress, well nourished, well developed - Routine HEENT Exam Eye: Present: EOMI ENT: Present: mucous membranes moist, dentition normal - Routine Respiratory Exam Present: CTA bilaterally. Absent: wheezes - Routine Cardiovascular Exam Present: RRR, S1, S2. Absent: murmur - Routine Abdominal Exam Present: soft, normoactive bowel sounds, non distended. Absent: tenderness - Routine Extremities Exam Present: edema, normal capillary refill Comments: Trace BLE- L>R - Routine Skin Exam Present: intact, dry, warm - Routine Neurological Exam Present: alert, oriented X3, CN II-XII intact, moving all extremities - Routine Lymphatic Exam Lymphatic: Absent: adenopathy - Routine Psychiatric Exam Present: normal affect Results - Labs CBC & Chem 7: 03/27/18 03:57 03/27/18 03:57 Microbiology Results: Microbiology 03/25/18 09:33 Stool Clostridium difficile Antigen (EDIE) - Final Assessment and Plan Assessment and Plan: Impression C. diff colitis, recurrent? Fever Detabolic acidosis, d/t diarrhea Atrial fib, on Eliquis Diet-controlled Type 2 DM GERD HTN Dyslipidemia FABIO, declined cpap in past Anemia Morbid obesity with BMI 45 Plan Microbiology revels both C-Diff antigen and toxin are both negative on send out test. 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 Will obtain GI panel as it is possible she has another GI infectious process. Overall stools have improved and she has had 3 doses of Imodium over the past 24 hours Will resume home Valsartan- Weight trending up, BLE edema increasing. Frame Straightener stable at 1.3 DVT Prophylaxis: Eliquis - Time spent with patient Time with patient PN: 25 minutes - Physician Narrative Physician: Jer Armstrong MD Narrative: Date: 03/27/18 Time: 1349 Have independently interviewed and examined pt. Chart reviewed. Case discussed with my INDUSTRIAL LABORER. Care plan developed with my supervision; agree with above. Doing okay. Stools slowing-did have some form to stool, not as urgent and frequent. Slight ab bloating. Eating okay. Breathing well. Does note increased edema to her left leg. Strength increasing gradually. Lungs: decreased, no distress CV: regular AB: soft nt BS decreased EXT: +2 edema to LLE. MSE: awake alert Plan: Can stop oral vancomycin. Continue prn medications to slow bowel. Diovan restarted, will give Lasix 20mg po daily as weight with increase. Encourage activities. Recheck lab in am. Continue with supportive care. Hospital Course Summary Disclaimer: The visit summary below is not to be considered part of the above Progress Note. Hospital Course: 03/23/18 Admit as inpatient. Expected stay at least 2 midnights. Check stool for c diff. Will start oral vanco. Patient was febrile at PCP's office. No other indication for sepsis at this time. WBC wnl. Lactate is 0.8. Cr up to 1.4; was 1.0 on 02/24. Will start IVF x 1 liter. Will resume home meds, including clonidine, sotalol, Eliquis. Hold ARB and monitor renal function. Monitor accuchecks. Diabetic diet. Was recently at group home. Consult PT/OT and encourage activity. At time of discharge medical care is to return to PCP Dr Bauer 03/24/18 Check stool for c diff. Continue oral vanco. No indication of sepsis. Cr improved after 1L NS. Encouraged patient to drink more fluids. Continue home meds, including clonidine, sotalol, Eliquis. Holding ARB and monitor renal function. Monitor accuchecks. Diabetic diet. Was recently at group home. Consulted PT/OT and encouraging activity. Hgb down from 10.3 to 9.2. May be dilutional. Will recheck cbc in am. Check for fob. 03/25/18 Checking stool for c diff - lab order now corrected to be done in house instead of sent out to [facility]. Continue oral vanco. No indication of sepsis. Asked nurse for a stool chart in the room to ensure accurate count of stools. Cr improved after 1L NS. Encouraged patient to drink more fluids. Weight up 2 kg. will monitor and consider low dose lasix. Continue home meds, including clonidine, sotalol, Eliquis. Holding ARB and monitor renal function. Monitor accuchecks. Diabetic diet. Was recently at group home. Consulted PT/OT and encouraging activity. Hgb up to 9.5. Monitor. stool occult blood negative x . 03/26/18 Positive for c diff. Continue oral vanco. WBC has not been elevated. No indication of sepsis. Has been on oral vanco for about 72 hours. Will start imodium to try to slow bowels. Asked nurse for a stool chart in the room to ensure accurate count of stools. Cr improved after 1L NS. Encouraged patient to drink more fluids. Weight up 2 kg. Will monitor. Continue home meds, including clonidine, sotalol, Eliquis. Holding ARB. Renal function stable and so is BP off ARB. monitor. Monitor accuchecks. Diabetic diet. Was recently at group home. Consulted PT/OT and encouraging activity. Hgb at 9.5. Monitor. stool occult blood negative x 1. 03/27/18 Microbiology revels both C-Diff antigen and toxin are both negative on send out test. 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 We will discontinue PO Vanco. Obtain GI panel as it is possible she has another GI infectious process. Overall stools have improved and she has had 3 doses of Imodium over the past 24 hours. Will resume home Valsartan - Weight trending up, BLE edema increasing. Frame Straightener stable at 1.3. Will start Lasix 20mg daily to help edema. Encourage elevation of legs at rest.
[2018-03-27] MEDS: Valsartan 160 MG TABLET PO SCH (15:05)
[2018-03-27 15:17] VITALS: RESP 16
[2018-03-27] MEDS: FUROSEMIDE 20 MG TABLET PO SCH (18:11)
[2018-03-27] MEDS: SIMVASTATIN 20 MG TABLET PO SCH (21:22)
[2018-03-27] MEDS: SALINE FLUSH 10ml SYRINGE IV PRN (21:22)
[2018-03-28] MEDS: OMEPRAZOLE 20 MG CAPSULE PO SCH (06:05)
[2018-03-28] MEDS: SOTALOL 80 MG TABLET PO SCH ×2 (06:06→17:07)
[2018-03-28 08:05] VITALS: PULSE 63
[2018-03-28] MEDS: FERROUS SULFATE 324 MG TABLET PO SCH (08:06)
[2018-03-28] MEDS: ALLOPURINOL 300 MG TABLET PO SCH (08:07)
[2018-03-28] MEDS: APIXABAN 5 MG TABLET PO SCH (08:07)
[2018-03-28] MEDS: FUROSEMIDE 20 MG TABLET PO SCH (08:07)
[2018-03-28] MEDS: LACTOBACILLUS (15B cfu) CAPSULE PO SCH ×3 (08:07→17:07)
[2018-03-28] MEDS: AMLODIPINE 2.5 MG TABLET PO SCH (08:07)
[2018-03-28] MEDS: Valsartan 160 MG TABLET PO SCH (08:08)
--- NOTE | 2018-03-28 12:33 | Progress Note ---
- Date 03/28/18 Subjective: F/U: Diarrhea - ? recurrent C diff Stools much improved. Has had 3-4 bowel movements today, all formed. Fecal urgency resolved. Oral intake improved-able to eat better and less sick at stomach. Breathing well without SOA, cough, or congestion. No pain with breathing. Tolerating Lasix without dizziness or unsteadiness-however, reports didn't get up to urinate as often as she thought she would last night (up 2 times for urine). Leg edema stable-has been elevating feet. Strength improving- still weak, but getting around better. No f/c. Objective Vital signs: Temperature 96.9 F 03/28/18 08:00 Pulse Rate 63 03/28/18 08:00 Respiratory Rate 16 03/28/18 08:00 Blood Pressure 142/62 H 03/28/18 08:00 Pulse Oximetry 98 03/28/18 08:00 Height/Weight/BMI: Height 1.5 m Weight 100.9 kg Body Mass Index 43.7 - Constitutional Present: well nourished, well developed, morbidly obese, cooperative. Absent: combative, agitated, somnolent, obtunded - Routine HEENT Exam Head: Present: normocephalic, atraumatic Eye: Present: EOMI, PERRL ENT: Present: mucous membranes moist - Routine Respiratory Exam Present: decreased breath sounds. Absent: rales, respiratory distress, rhonchi , stridor, wheezes, crackles - Routine Cardiovascular Exam Present: RRR, no murmur - Routine Abdominal Exam Present: soft, normoactive bowel sounds, non distended, non tender. Absent: guarding - Routine Extremities Exam Present: edema (+2 BLE), pulses intact. Absent: cyanosis, clubbing - Routine Musculoskeletal Exam Musculoskeletal: Present: no clubbing or cyanosis - Routine Skin Exam Present: dry, warm - Routine Neurological Exam Present: alert, oriented X3, moving all extremities, vision grossly intact, hearing grossly intact, normal speech. Absent: motor deficit, altered mental status - Routine Psychiatric Exam Present: normal affect, normal thought process, cooperative Results - Labs CBC & Chem 7: 03/28/18 04:42 03/28/18 04:42 Microbiology Results: Microbiology 03/25/18 09:33 Stool Clostridium difficile Antigen (EDIE) - Final Assessment and Plan Assessment and Plan: Impression C. diff colitis, recurrent? Fever Metabolic acidosis, d/t diarrhea - resolved Atrial fib, on Eliquis Diet-controlled Type 2 DM GERD HTN Dyslipidemia FABIO, declined cpap in past Anemia Morbid obesity with BMI 45 Plan Clinically much improved. Bowel movements formed and fecal urgency decreased. Eating well without n/v. Vitals stable. Lab stable. Discussed about discharge from hospital - not having continued needs for inpatient treatment. CM did make arrangements for Skilled Care at [facility], but patient declining skilled care. Home Health offered to patient, but does not want to be home bound. Does have family members nearby that are supportive. With clinical improvement, can discharge to home. Does not need further treatment with oral vancomycin. May use OTC Imodium if stools start to become more loose or urgent. Recommend probiotic to help decrease risk for loose stools. Encourage yogurt as well. With seeing evidence that patient is carrying C difficile, advised significant caution with antibiotic use. May use Lasix 20mg daily for then next 3-5 days to help decrease edema. Encouraged elevation of legs at rest and avoidance of sodium in diet. Increase activities as able. F/U with Dr Guallpa in 1 week - recommend rechecking BMP at that time secondary to medication use. See orders for details. Case discussed with CM. Time spent with patient's care and discharge greater than 30 minutes. DVT Prophylaxis: Eliquis - Physician Narrative Physician: Jer Armstrong MD Narrative: Date: 03/28/18 Time: 1227 Hospital Course Summary Disclaimer: The visit summary below is not to be considered part of the above Progress Note. Hospital Course: 03/23/18 Admit as inpatient. Expected stay at least 2 midnights. Check stool for c diff. Will start oral vanco. Patient was febrile at PCP's office. No other indication for sepsis at this time. WBC wnl. Lactate is 0.8. Cr up to 1.4; was 1.0 on 02/24. Will start IVF x 1 liter. Will resume home meds, including clonidine, sotalol, Eliquis. Hold ARB and monitor renal function. Monitor accuchecks. Diabetic diet. Was recently at [facility]. Consult PT/OT and encourage activity. At time of discharge medical care is to return to PCP Dr Bauer 03/24/18 Check stool for c diff. Continue oral vanco. No indication of sepsis. Cr improved after 1L NS. Encouraged patient to drink more fluids. Continue home meds, including clonidine, sotalol, Eliquis. Holding ARB and monitor renal function. Monitor accuchecks. Diabetic diet. Was recently at [facility]. Consulted PT/OT and encouraging activity. Hgb down from 10.3 to 9.2. May be dilutional. Will recheck cbc in am. Check for fob. 03/25/18 Checking stool for c diff - lab order now corrected to be done in house instead of sent out to [facility]. Continue oral vanco. No indication of sepsis. Asked nurse for a stool chart in the room to ensure accurate count of stools. Cr improved after 1L NS. Encouraged patient to drink more fluids. Weight up 2 kg. will monitor and consider low dose lasix. Continue home meds, including clonidine, sotalol, Eliquis. Holding ARB and monitor renal function. Monitor accuchecks. Diabetic diet. Was recently at [facility]. Consulted PT/OT and encouraging activity. Hgb up to 9.5. Monitor. stool occult blood negative x . 03/26/18 Positive for c diff. Continue oral vanco. WBC has not been elevated. No indication of sepsis. Has been on oral vanco for about 72 hours. Will start imodium to try to slow bowels. Asked nurse for a stool chart in the room to ensure accurate count of stools. Cr improved after 1L NS. Encouraged patient to drink more fluids. Weight up 2 kg. Will monitor. Continue home meds, including clonidine, sotalol, Eliquis. Holding ARB. Renal function stable and so is BP off ARB. monitor. Monitor accuchecks. Diabetic diet. Was recently at [facility]. Consulted PT/OT and encouraging activity. Hgb at 9.5. Monitor. stool occult blood negative x 1. 7 Microbiology revels both C-Diff antigen and toxin are both negative on send out test. 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 We will discontinue PO Vancomycin. Obtain GI panel as it is possible she has another GI infectious process. Overall stools have improved and she has had 3 doses of Imodium over the past 24 hours. Will resume home Valsartan - Weight trending up, BLE edema increasing. Middle School Coach stable at 1.3. Will start Lasix 20mg daily to help edema. Encourage elevation of legs at rest. 03/28/18 Clinically much improved. Bowel movements formed and fecal urgency decreased. Eating well without n/v. Vitals stable. Lab stable. Discussed about discharge from hospital - not having continued needs for inpatient treatment. CM did make arrangements for Skilled Care at [facility], but patient declining skilled care. Home Health offered to patient, but does not want to be home bound. Does have family members nearby that are supportive. With clinical improvement, can discharge to home. Does not need further treatment with oral vancomycin. May use OTC Imodium if stools start to become more loose or urgent. Recommend probiotic to help decrease risk for loose stools. Encourage yogurt as well. With seeing evidence that patient is carrying C difficile, advised significant caution with antibiotic use. May use Lasix 20mg daily for then next 3-5 days to help decrease edema. Encouraged elevation of legs at rest and avoidance of sodium in diet. Increase activities as able. F/U with Dr Guallpa in 1 week - recommend rechecking BMP at that time secondary to medication use. See orders for details.
[2018-03-28 16:25] VITALS: BP 143/59; TEMP 96.3; O2SAT 97
--- NOTE | 2018-03-28 19:49 | Discharge Summary ---
Discharge Information Date of admission: 03/23/18 16:20 Anticipated date of discharge: 03/28/18 Attending Physician: Jer Armstrong MD Primary care physician: Mateus Guallpa MD Admitting diagnosis Diarrhea - poss C. diff colitis Discharge diagnosis Diarrhea - non C. diff Hx C. diff - current carrier Associated condition and complications Fever Metabolic acidosis, d/t diarrhea - resolved Atrial fib, on Eliquis Diet-controlled Type 2 DM GERD HTN Dyslipidemia FABIO, declined cpap in past Anemia Morbid obesity with BMI 45 - Laboratory Labs: Admit Lab 03/23/18 18:00 WBC 6.5 Hgb 10.3 L Hct 32.5 L MCV 93.1 Plt Count 186 D Neut % (Auto) 43.2 Lymph % (Auto) 32.9 [place] % (Auto) 19.1 H Eos % (Auto) 4.0 Baso % (Auto) 0.5 Admit Lab 03/23/18 18:00 Sodium 141 Potassium 4.7 Chloride 110 H Carbon Dioxide 24 Anion Gap 7 BUN 31.0 H Creatinine 1.4 H GFR Calculation 36 BUN/Creatinine Ratio 22 Glucose 100 Calculated Osmolality 278 Calcium 8.3 L Phosphorus 4.0 Magnesium 1.6 Total Bilirubin 0.30 AST 17 ALT 15 Alkaline Phosphatase 92 Total Protein 5.9 L Albumin 3.0 L Globulin 2.9 Albumin/Globulin Ratio 1.0 L Plasma Lactate 0.8 03/28/18 04:42 03/28/18 04:42 - Microbiology Microbiology 03/25/18 09:33 Stool Clostridium difficile Antigen (EDIE) - Final - Negative. Toxin and antigen not detected History of Present Illness HPI: 82 yo female recently admitted (02/16-02/24) and treated for a vulvar cellulitis with Rocephin and Diflucan. She was found to have C. diff during her hospitalization. Per records stools were slowing down and starting to be formed when patient was dismissed on 02/24. She was to continue 8 more days of Vanco 125 mg po q6. She says she was on the Vanco until last . She says she still was having loose stools but that they have been worse since stopping the Vanco. She saw her PCP, Dr. Guallpa, at his office today. Her temp there was 101. She says she has been having abdominal cramps prior to loose stools. She says she is going about every 2 hours. She says she is trying to drink fluids but has been reluctant to eat because of the frequency of the stools. For complete details of the H&P refer to that document. Objective Vital signs: Temperature 96.3 F L 03/28/18 16:25 Pulse Rate 63 03/28/18 17:07 Respiratory Rate 16 03/28/18 16:25 Blood Pressure 143/59 H 03/28/18 16:25 Pulse Oximetry 97 03/28/18 16:25 Height/Weight/BMI: Height 1.5 m Weight 100.9 kg Body Mass Index 43.7 Hospital Course This is a general summary of the patient's hospital course. For more details refer to the complete medical record. Hospital course: 03/23/18 Admit as inpatient. Expected stay at least 2 midnights. Check stool for c diff. Will start oral vanco. Patient was febrile at PCP's office. No other indication for sepsis at this time. WBC wnl. Lactate is 0.8. Cr up to 1.4; was 1.0 on 02/24. Will start IVF x 1 liter. Will resume home meds, including clonidine, sotalol, Eliquis. Hold ARB and monitor renal function. Monitor accuchecks. Diabetic diet. Was recently at custodial. Consult PT/OT and encourage activity. At time of discharge medical care is to return to PCP Dr Bauer 03/24/18 Check stool for c diff. Continue oral vanco. No indication of sepsis. Cr improved after 1L NS. Encouraged patient to drink more fluids. Continue home meds, including clonidine, sotalol, Eliquis. Holding ARB and monitor renal function. Monitor accuchecks. Diabetic diet. Was recently at custodial. Consulted PT/OT and encouraging activity. Hgb down from 10.3 to 9.2. May be dilutional. Will recheck cbc in am. Check for fob. 03/25/18 Checking stool for c diff - lab order now corrected to be done in house instead of sent out to [facility]. Continue oral vanco. No indication of sepsis. Asked nurse for a stool chart in the room to ensure accurate count of stools. Cr improved after 1L NS. Encouraged patient to drink more fluids. Weight up 2 kg. will monitor and consider low dose Lasix. Was recently at custodial. Consulted PT/OT and encouraging activity. Hgb up to 9.5. Monitor. stool occult blood negative x 1. 03/26/18 Positive for c diff. Continue oral vanco. WBC has not been elevated. No indication of sepsis. Has been on oral vanco for about 72 hours. Will start Imodium to try to slow bowels. Asked nurse for a stool chart in the room to ensure accurate count of stools. Cr improved after 1L NS. Encouraged patient to drink more fluids. Weight up 2 kg. Will monitor. Continue home meds, including clonidine, sotalol, Eliquis. Holding ARB. Renal function stable and so is BP off ARB. monitor. Was recently at custodial. Consulted PT/OT and encouraging activity. Hgb at 9.5. Monitor. stool occult blood negative x 1. 03/27/18 Microbiology revels both C-Diff antigen and toxin are both negative on send out test. 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 We will discontinue PO Vancomycin. Obtain GI panel as it is possible she has another GI infectious process. Attempted-formed stool; not able to process. Overall stools have improved and she has had 3 doses of Imodium over the past 24 hours. Will resume home Valsartan - Weight trending up, BLE edema increasing. Information Technology Audit Manager stable at 1.3. Will start Lasix 20mg daily to help edema. Encourage elevation of legs at rest. 03/28/18 Clinically much improved. Bowel movements formed and fecal urgency decreased. Eating well without n/v. Vitals stable. Lab stable. Discussed about discharge from hospital - not having continued needs for inpatient treatment. CM did make arrangements for Skilled Care at [facility], but patient declining skilled care. Home Health offered to patient, but does not want to be home bound. Does have family members nearby that are supportive. Prior to discharge discussed home plans with patient and her son. Anticipate patient improving. Did advise that if she would become more weak or needing more care - Skilled option would still be open for 1-2 weeks. Would need to contact Dr Guallpa or our CM to make arrangements. With clinical improvement, can discharge to home. Does not need further treatment with oral vancomycin. May use OTC Imodium if stools start to become more loose or urgent. Recommend probiotic to help decrease risk for loose stools. Encourage yogurt as well. With seeing evidence that patient is carrying C difficile, advised significant caution with antibiotic use. May use Lasix 20mg daily for then next 3-5 days to help decrease edema. Encouraged elevation of legs at rest and avoidance of sodium in diet. Increase activities as able. F/U with Dr Guallpa in 1 week - recommend rechecking BMP at that time secondary to medication use. See orders for details. Time spent with patient: discharge greater than 30 minutes Discharge Plan - Discharge Disposition Discharge Date: 03/28/18 Disposition: Discharged Home, Self-Care *Condition: Stable Reason For Visit (Visit label in EMR): Recurrent C-Dff - Discharge Medications *Discharge Medications: New Furosemide [Lasix 20 mg Tab] 20 mg PO DAILY PRN #30 tab PRN Reason: Edema Continue Garlic [Garlic Oil] 1,000 mg PO DAILY #0 Calcium Carbonate 1 tab PO DAILY #0 Valsartan [Diovan] 320 mg PO DAILY #0 tab Simvastatin 20 mg PO HS CloNIDine [Catapres] 1 tab PO BID Amlodipine Besylate [Norvasc] 2.5 mg PO DAILY Apixaban [Eliquis] 5 mg PO BID Nystatin Ointment [Mycostatin] 1 applicatio TP TID tube Ferrous Sulfate 325 mg PO DAILY Ascorbic Acid [Vitamin C] 250 mg PO DAILY Slow Fe 1 tab PO DAILY Loperamide HCl [Loperamide] 1 tab PO PRN PRN PRN Reason: Diarrhea Hydrocodone/APAP 5/325 [Baxter 5/325] 1 - 2 tab PO Q6H PRN PRN Reason: Pain Multi-Vitamin + Mineral [Therapeutic - M] 1 tab PO DAILY #0 Omeprazole 40 mg PO DAILY #0 Zinc Amino Acid Chelate [Zinc] 50 mg PO DAILY #0 Allopurinol [Zyloprim] 150 mg PO DAILY [place]-3/Dha/Epa/Fish Oil [Fish Oil 1,000 mg Softgel] 2,000 mg PO DAILY Sotalol HCl [Betapace] 80 mg PO Q12H Acidoph/L.bulg/Bif.b/S.thermop [Bacid Caplet] 2 cap PO TIDWM tab Nystatin Powder [Mycostatin] 1 applicatio PO TID Acetaminophen [Tylenol] 325 mg PO Q4H PRN PRN Reason: Discomfort - Discharge Packet/Instructions *Diet: Low sodium *Activity: As tolerated, walker for assistance *Pain Management/Treatment: Continue prior home pain medications *Wound Care: N/A Additional Instructions: May use Lasix (furosemide) 20mg daily as needed to decrease swelling to legs. Avoidance of sodium and elevation of legs can help decrease swelling. Watch for muscle cramps or dizziness with furosemide use. *Expected Signs/Symptoms: Improvement of bowel function. *Notify Physician if: Temp >100.4. Severe constipation or diarrhea. *During Business Hours Contact: Dr Guallpa *After Business Hours Contact: Call [facility] and have your care provider contacted. *Pending Lab/Results: No Pending Lab - Referrals/Follow Up *Referrals/Follow Up: Mateus Guallpa MD [Primary Care Provider] - 1 Week (Hospital follow up for diarrhea - C diff carrier. Check BMP secondary to medication use. ) - Patient Handouts - Dismissal Complete Discharge Instructions are:: Complete Physician Narrative - Narrative Physician: Jer Armstrong MD Attestation Narrative: Date: 03/28/18 Time: 1945 I have independently interviewed and examined patient prior to discharge. See my progress noted for details. Medically stable for discharge to home.
== END 2018-03-28 20:00 | disposition home or self-care (01) | DRG 372 ==
LOC: SUATTDRO 16:20 → MED 16:20
PROVIDERS: ADMIT Hospitalist; ATTEND Hospitalist